=== PATIENT | male | born 1950 | race Caucasian/White ===

== ENCOUNTER → 2020-01-15 | Outpatient (CLI) | payer MEDICARE ==
--- NOTE | 2020-01-15 14:21 | US ---
EXAMINATION TYPE: US kidneys/renal and bladder DATE OF EXAM: 01/15/2020 COMPARISON: NONE CLINICAL HISTORY: N18.3 CKD Stage 3. CKD stage II EXAM MEASUREMENTS: Right Kidney: 9.4 x 4.0 x 4.2 cm Left Kidney: 11.1 x 5.6 x 4.6 cm Technical limitations due to overlying bowel content Right Kidney: thin renal cortex Left Kidney: thin renal cortex Bladder: not fully distended Bilateral Jets seen: no No hydronephrosis or nephrolithiasis. IMPRESSION: Cortical thinning correlate for chronic medical renal disease.
== END | disposition home or self-care (01) ==
LOC: RADUSWWP 13:39
PROVIDERS: ATTEND Internal Medicine Nephrology
DX: N18.3 Chronic kidney disease, stage 3 (moderate) (principal); N28.89 Other specified disorders of kidney and ureter
CPT/HCPCS: 76770

== ENCOUNTER → 2020-09-10 | Outpatient (CLI) | payer MEDICARE ==
--- NOTE | 2020-09-10 14:26 | XR ---
EXAMINATION TYPE: XR chest special 4+ views DATE OF EXAM: 09/10/2020 COMPARISON: 08/05/2017 INDICATION: Pleural effusions TECHNIQUE: Single frontal view of the chest is obtained. FINDINGS: The heart size is normal. The pulmonary vasculature is normal. There is a moderate free flowing right pleural effusion. Smaller free flowing left pleural effusion i s present. There is some flattening the diaphragms the lateral projection which can be associated wit h COPD. IMPRESSION: 1. Free flowing bilateral pleural effusions larger on the right.
== END | disposition home or self-care (01) ==
LOC: RADXRMAIN 13:49
PROVIDERS: ATTEND Internal Medicine Hematology & Oncology
DX: J90 Pleural effusion, not elsewhere classified (principal); C92.10 Chronic myeloid leukemia, BCR/ABL-positive, not having achieved remission; M10.9 Gout, unspecified; N18.9 Chronic kidney disease, unspecified
CPT/HCPCS: 71048

== ENCOUNTER → 2020-10-05 | Outpatient (CLI) | payer MEDICARE ==
--- NOTE | 2020-10-05 08:53 | CT ---
EXAMINATION TYPE: CT chest wo con DATE OF EXAM: 10/05/2020 COMPARISON: Chest CT August 01, 2017 HISTORY: Pulmonary Fibrosis CT DLP: 366.3 mGycm. Automated Exposure Control for Dose Reduction was Utilized. TECHNIQUE: CT scan of the thorax is performed without IV contrast. FINDINGS: LUNGS: There is new small right pleural effusion and tiny left pleural effusion. There is background mild to moderate underlying emphysematous changes greatest in the upper lungs. There is peripheral re ticulation and fibrosis bilaterally with interval progression from 2017 study. Interval resolution of the bilateral predominantly lower lungs interlobular septal thickening and groundglass opacities fro m 2017 study. No suspicious nodules or masses. No pneumothorax seen. Tracheobronchial tree is patent. MEDIASTINUM: Lack of IV contrast is noted to limit evaluation for mediastinal and especially hilar ad enopathy. There are no definitive greater than 1 cm hilar or mediastinal lymph nodes. No cardiomega ly or pericardial effusion is seen. Post CABG changes with mediastinal clips and sternal wires. Moder ate calcified plaque in the thoracic aorta. OTHER: Marked interval progression of bilateral flank shaped subareolar gynecomastia and 2017. Mild-t o-moderate generalized fat replaced atrophy of the pancreas redemonstrated. Some cortical thinning sangeetha th kidneys redemonstrated. IMPRESSION: Mild to moderate emphysematous change redemonstrated. Mild to moderate peripheral pulmona ry fibrotic changes on current study are new from the 2017 study. Small right and tiny left pleural e ffusions new from prior. No suspicious acute infiltrate currently. Marked progression of bilateral gy necomastia incidentally noted.
== END ==
LOC: RADCTMAIN 06:55
PROVIDERS: ATTEND Internal Medicine Sleep Medicine
DX: J84.10 Pulmonary fibrosis, unspecified (principal); J90 Pleural effusion, not elsewhere classified; J43.9 Emphysema, unspecified
CPT/HCPCS: 71250

== ENCOUNTER → 2020-11-10 | Outpatient (CLI) | payer MEDICARE | LOC: CPPFTMAIN 10:12 | PROVIDERS: ATTEND Internal Medicine Sleep Medicine | DX: J84.10 Pulmonary fibrosis, unspecified (principal) | CPT/HCPCS: 94060; 94726; 94729 ==

== ENCOUNTER → 2020-12-10 | Outpatient (CLI) | payer MEDICARE ==
--- NOTE | 2020-12-11 05:33 | US ---
EXAMINATION TYPE: US kidneys/renal and bladder DATE OF EXAM: 12/10/2020 COMPARISON: 01/15/2020 CLINICAL HISTORY: N18.3 stage 3 chronic kidney disease. EXAM MEASUREMENTS: Right Kidney: 9.7 x 5.3 x 4.9 cm Left Kidney: 10.2 x 4.8 x 4.8 cm Difficult and limited study due to overlying bowel gas Right Kidney: No hydronephrosis or masses seen Left Kidney: No hydronephrosis or masses seen Bladder: appears wnl Bilateral Jets seen: right jet seen, left jet not seen IMPRESSION: No evidence of a renal mass. No hydronephrosis seen. Mild renal atrophy unchanged.
== END | disposition home or self-care (01) ==
LOC: RADUSWWP 15:38
PROVIDERS: ATTEND Internal Medicine Nephrology
DX: N18.30 Chronic kidney disease, stage 3 unspecified (principal); N26.1 Atrophy of kidney (terminal)
CPT/HCPCS: 76770

== ENCOUNTER → 2021-03-18 | Outpatient (CLI) | payer MEDICARE ==
--- NOTE | 2021-03-18 16:53 | XR ---
EXAMINATION TYPE: XR chest 2V DATE OF EXAM: 03/18/2021 COMPARISON: 08/06/2017 HISTORY: 70-year-old male pleural effusion, J9 0. TECHNIQUE: Frontal and lateral views FINDINGS: Heart normal size. Median sternotomy wires with postoperative clips in the mediastinum. Mild patchy d ensity in the periphery of the right midlung. There is a trace right effusion. Otherwise, no consolid ation seen. Mild hyperinflation. IMPRESSION: 1. There may be underlying COPD. 2. Very subtle patchy density periphery of the right mid lung could represent atelectasis or an early infiltrate. 3. Trace right pleural effusion.
== END | disposition home or self-care (01) ==
LOC: RADXRMAIN 13:40
PROVIDERS: ATTEND Internal Medicine Sleep Medicine
DX: J90 Pleural effusion, not elsewhere classified (principal); J98.4 Other disorders of lung
CPT/HCPCS: 71046

== ENCOUNTER 2021-03-28 14:06 | Inpatient (IN) | payer MEDICARE ==
--- NOTE | 2021-03-28 14:58 | ED ---
Chest Pain HPI - General Chief Complaint: Chest Pain Stated Complaint: CHEST PAIN Source: patient Mode of arrival: ambulatory Limitations: no limitations - History of Present Illness Initial Comments: Patient is a 70-year-old male past history of coronary artery disease status post bypass, diabetes who presents to the emergency department with reported elevated heart rate. The patient states that this is the second time that this has happened to him. He was recently prescribed DuoNeb by Dr. Briones on Monday as he has possible pneumonia. He states that he used one treatment on Monday and had an elevation in his heart rate shortly after. He has associated shortness of breath and chest discomfort. He states he waited for approximately 6 hours and the symptoms resolved on their own. He did not use any breathing treatments yesterday. He once again took a breathing treatment earlier this morning and had sudden onset of heart racing and chest pain. He denies any associated nausea or vomiting. He sees Dr. Manning in office. States he had a cardiac catheterization several years ago and was found that some of his bypass grafts are occluded. He states that they were medically managing him. Recently has been seeing Dr. Briones for some shortness of breath and was diagnosed with pneumonia. He has been on the antibiotics, breathing treatments since Monday. He denies any fevers or chills. No cough. Patient is not on any blood thinners. He does take Toprol 50 mg once daily. He does not take this medication if his blood pressures less than 110 systolic. No other alleviating, precipitating or modifying factors - Related Data Home Medications Medication Instructions Recorded Confirmed Glimepiride [Amaryl] 1 mg PO BID@0800,0 08/01/17 03/28/21 Metoprolol Tartrate [Lopressor] 50 mg PO DAILY@0808/01/17 03/28/21 Pioglitazone [Actos] 15 mg PO DAILY@0808/01/17 03/28/21 cilostazoL [Pletal] 100 mg PO BID@0800,169908/01/17 03/28/21 lisinopriL [Zestril] 2.5 mg PO DAILY@0808/01/17 03/28/21 Aspirin EC [Ecotrin] 325 mg PO DAILY@0803/28/21 03/28/21 Atorvastatin Calcium [Lipitor] 80 mg PO DAILY@169903/28/2103/28/21 Doxycycline Monohydrate 100 mg PO BID 03/28/21 03/28/21 Ferrous Sulfate [Feosol] 325 mg PO DAILY@79903/28/21 03/28/21 Ipratropium-Albuterol Nebulize 3 ml INHALATION RT-QID PRN 03/28/21 03/28/21 [Duoneb 0.5 mg-3 mg/3 ml Soln] Niacin [Niacin ER] 500 mg PO DAILY@79903/28/21 03/28/21 Spironolactone [Aldactone] 12.5 mg PO DAILY@169903/28/21 03/28/21 allopurinoL [Zyloprim] 300 mg PO DAILY@169903/28/21 03/28/21 calcitrioL [Calcitriol] 0.25 mcg PO SUWE@169903/28/21 03/28/21 predniSONE [Deltasone] See Taper PO DIRECTED 03/28/21 03/28/21 Allergies Allergy/AdvReac Type Severity Reaction Status Date / Time No Known Allergies Allergy Verified 03/28/21 16:38 Review of Systems ROS Statement: Those systems with pertinent positive or pertinent negative responses have been documented in the HPI. ROS Other: All systems not noted in ROS Statement are negative. EKG Findings - EKG Comments: EKG Findings:: EKG demonstrates sinus tachycardia with a ventricular rate of 126. MA interval 152. QRS 134. QTC of 480. Right bundle-branch block. No acute ST segment elevations. Repeat EKG at 1647 demonstrates a sinus tachycardia with a ventricular rate of 124. MA interval 136. QRS 136. QTC of 525. Right bundle branch block. ST depression in V1 through V6. No acute ST segment elevations Past Medical History Past Medical History: Coronary Artery Disease (CAD), Diabetes Mellitus, Hyperlipidemia, Hypertension Additional Past Medical History / Comment(s): PVD carotid stenosis. The patient does have a 40 year pack per day smoking history but has not had any pulmonary symptoms. No inhalers, no oxygen at home. History of Any Multi-Drug Resistant Organisms: None Reported Past Surgical History: Coronary Bypass/CABG, Orthopedic Surgery Past Psychological History: No Psychological Hx Reported Smoking Status: Former smoker Past Alcohol Use History: None Reported Past Drug Use History: None Reported - Past Family History Father Additional Family Medical History / Comment(s): of throat cancer Mother Additional Family Medical History / Comment(s): fell and broke hip then General Exam Limitations: no limitations Course Vital Signs 03/28/21 03/28/21 14:09 14:32 Temperature 97.7 F Pulse Rate 127 H Pulse Rate [ 128 H Bilateral Radial] Respiratory 20 20 Rate Blood Pressure 115/67 O2 Sat by Pulse 94 L Oximetry - Reevaluation(s) Reevaluation #1: spoke with Dr. Greene who recommended lopressor 25 mg TID, heparin 03/28/21 17:06 Chest Pain MDM - MDM Upon arrival patient was placed into room 21. A thorough history and physical exam is performed. Laboratory studies are conducted. Twelve-lead EKG was performed. Laboratory studies do reveal a hemoglobin of 9.8. D-dimer 6.09. Potassium 3.3. Creatinine 1.4. Troponin is 3.1. BNP 20,900. Chest x-ray does demonstrate progressive prominence of the lung interstitium and small bilateral pleural effusions consistent with fluid overload. The patient was given a dose of Lasix 60 mg and started on 40 mg twice daily. He is also given an aspirin and started on a heparin drip. I spoke with Dr. Steve in regards to the patient's symptoms. He has recommend that the patient be given 25 mg 3 times daily for his elevated heart rate, hold off on DuoNeb treatments. Heparinize the patient. VQ scan is ordered. Patient will be admitted to the hospital with cardiology to consult. Spoke with Dr. Mcdaniels who agreed to admit the patient. He is remaining in stable condition with guarded prognosis awaiting a bed on the floor Disposition Clinical Impression: Chest pain, CHF (congestive heart failure), Tachycardia, Medication side effect, NSTEMI (non-ST elevated myocardial infarction), Elevated d-dimer Disposition: ADMITTED IP TO THIS HOSP Condition: Serious Is patient prescribed a controlled substance at d/c from ED?: No Decision to Admit Reason: Admit from EC Decision Date: 03/28/21 Decision Time: 18:13
[2021-03-28 15:44] LABS: Albumin 3.9 g/dL (3.5-5.0); Calcium 9.6 mg/dL (8.4-10.2); Magnesium 1.5 mg/dL (1.6-2.3); Potassium 3.3 mmol/L (3.5-5.1); Total Bilirubin 0.3 mg/dL (0.2-1.3); Total Protein 6.2 g/dL (6.3-8.2)
[2021-03-28 15:45] LABS: Basophils % (A) 0 %; Eosinophils % (A) 0 %; HCT 30.5 % (39.0-53.0); HGB 9.8 gm/dL (13.0-17.5); Lymphocytes # (A) 0.4 k/uL (1.0-4.8); Lymphocytes % (A) 4 %; MCH 37.4 pg (25.0-35.0); MCHC 32.1 g/dL (31.0-37.0); MCV 116.4 fL (80.0-100.0); Macrocytosis Marked; Mean Platelet Volume 8.7; Monocytes # (A) 0.3 k/uL (0-1.0); Monocytes % (A) 3 %; Neutrophils # (A) 8.5 k/uL (1.3-7.7); Neutrophils % (A) 91 %; Platelet Count 223 k/uL (150-450); RBC 2.62 m/uL (4.30-5.90); RDW 15.9 % (11.5-15.5); WBC 9.3 k/uL (3.8-10.6)
--- NOTE | 2021-03-28 15:52 | XR ---
EXAMINATION TYPE: XR chest 2V DATE OF EXAM: 03/28/2021 COMPARISON: Chest radiograph 03/18/2021 HISTORY: Pleural effusion TECHNIQUE: Frontal and lateral views of the chest are obtained. FINDINGS: Cardiomediastinal silhouette appears unchanged. Mildly progressed prominence of the lung i nterstitium. Similar appearing small patchy airspace opacities in the right mid and lower lungs. Slig htly progressed small bilateral pleural effusions. No pneumothorax. Intact sternotomy wires are again seen. Osseous structures otherwise appear intact. Limited views of the upper abdomen appear unremark able. IMPRESSION: 1. Progressed prominence of the lung interstitium and small bilateral pleural effusions consistent wi th fluid overload. 2. Unchanged small patchy right mid and lower lung airspace opacities.
[2021-03-28 16:04] LABS: INR 1.2 (<1.2); Partial Thromboplastin Time 22.6 sec (22.0-30.0); Prothrombin Time 12.2 sec (9.0-12.0)
[2021-03-28] MEDS ORDERED: FUROSEMIDE 10 MG/ML 10 ML VIAL IV STA (16:48)
[2021-03-28] MEDS ORDERED: HEPARIN SODIUM 1,000 UN/ML (10ML VL) IV ONE (17:00)
[2021-03-28] MEDS ORDERED: HEPARIN SODIUM 1,000 UN/ML (10ML VL) IV PRN (17:00)
[2021-03-28 17:44] LABS: Poikilocytosis (M) Present
[2021-03-28 17:45] LABS: RBC Fragments Present
[2021-03-28] MEDS: METOPROLOL TARTRATE 25 MG TAB PO SCH ×2 (17:58→21:49)
[2021-03-28] MEDS: HEPARIN SOD,PORK IN 0.45% NACL 25,000 UNIT in 0.45% NACL 1 250ML.BAG IV SCH (17:59)
[2021-03-28] MEDS ORDERED: NALOXONE 0.4 MG/ML 1 ML VIAL IV PRN (18:13)
[2021-03-28] MEDS ORDERED: ASPIRIN 81 MG PO STA (18:15)
[2021-03-28] MEDS ORDERED: POTASSIUM CHLORIDE ER 20 MEQ TAB.ER PO STA (20:36)
[2021-03-28 21:02] LABS: Glucose,Whole Blood 271 mg/dL (75-99)
[2021-03-28] MEDS: FUROSEMIDE 10 MG/ML 4 ML VIAL IV SCH (21:49)
[2021-03-28] MEDS: DOXYCYCLINE 100 MG CAP PO SCH (22:37)
[2021-03-29 06:06] LABS: Glucose,Whole Blood 210 mg/dL (75-99)
[2021-03-29 07:24] LABS: Anisocytosis Slight; Basophils % (A) 0 %; Eosinophils % (A) 0 %; HCT 28.8 % (39.0-53.0); HGB 9.4 gm/dL (13.0-17.5); Hypochromasia Slight; Lymphocytes # (A) 0.6 k/uL (1.0-4.8); Lymphocytes % (A) 10 %; MCH 37.6 pg (25.0-35.0); MCHC 32.6 g/dL (31.0-37.0); MCV 115.4 fL (80.0-100.0); Macrocytosis Marked; Mean Platelet Volume 8.8; Monocytes # (A) 0.5 k/uL (0-1.0); Monocytes % (A) 7 %; Neutrophils # (A) 5.4 k/uL (1.3-7.7); Neutrophils % (A) 82 %; Platelet Count 183 k/uL (150-450); RBC 2.49 m/uL (4.30-5.90); WBC 6.6 k/uL (3.8-10.6)
[2021-03-29 07:41] LABS: Calcium 9.3 mg/dL (8.4-10.2); Potassium 4.3 mmol/L (3.5-5.1)
[2021-03-29 07:47] LABS: INR 1.3 (<1.2); Partial Thromboplastin Time 67.1 sec (22.0-30.0); Prothrombin Time 13.6 sec (9.0-12.0)
[2021-03-29] MEDS ORDERED: ASPIRIN 325 MG TAB PO SCH (08:00)
--- NOTE | 2021-03-29 08:36 | NM ---
EXAMINATION TYPE: NM pul vent and perfuse DATE OF EXAM: 03/29/2021 COMPARISON: NONE HISTORY: elevated d-dimer, ckd TECHNIQUE: Utilizing inhalation of 70.8 mCi Tc 99m DTPA aerosol and intravenous injection of 5.1 mCi of Tc 99m MAA, ventilation and perfusion images are acquired post injection in multiple projections. FINDINGS: Multiple matched defects are seen within the mid and upper lungs zones. No perfusion mismatch identif ied with certainty. IMPRESSION: Intermediate probability for pulmonary embolism.
--- NOTE | 2021-03-29 10:39 | P.NPCON ---
History of Present Illness - Reason for Consult chronic renal failure - History of Present Illness Reason for consultation: Chronic kidney disease History of present illness: Patient is a 70-year-old male seen in consultation for chronic kidney disease. Patient has chronic kidney disease stage IIIB with baseline creatinine in the range of 1.5-1.9 secondary to diabetic kidney disease. GFR is currently at baseline. Patient presented to the hospital with elevated heart rate. He does complain of shortness of breath with exertion as well as chest discomfort. He is noted to have significantly elevated troponin levels and is being followed by cardiology. He underwent a VQ scan which revealed intermediate probability of PE and just completed a CTA. He has been receiving IV Lasix 40 mg twice daily. He was also started on IV fluids with normal saline at 50 mL an hour this morning. Blood pressure was as low as 88/53 this admission and was 121/64 this morning. No fever or chills. Good urine output. No hematuria or dysuria. No vomiting or diarrhea. He does have long-standing history of diabetes mellitus. Vital signs are stable. General: The patient appeared well nourished and normally developed. HEENT: Head exam is unremarkable. Neck is without jugular venous distension. LUNGS: Breath sounds decreased. HEART: Rate and Rhythm are regular. ABDOMEN: Soft, no distention. EXTREMITITES: No edema. Past Medical History Past Medical History: Coronary Artery Disease (CAD), Diabetes Mellitus, Hyperlipidemia, Hypertension Additional Past Medical History / Comment(s): PVD carotid stenosis. The patient does have a 40 year pack per day smoking history but has not had any pulmonary symptoms. No inhalers, no oxygen at home. Chronic Myloid leukemia History of Any Multi-Drug Resistant Organisms: None Reported Past Surgical History: Coronary Bypass/CABG, Orthopedic Surgery Additional Past Surgical History / Comment(s): screws in right knee Past Anesthesia/Blood Transfusion Reactions: No Reported Reaction Past Psychological History: No Psychological Hx Reported Smoking Status: Former smoker Past Alcohol Use History: None Reported Past Drug Use History: None Reported - Past Family History Father Additional Family Medical History / Comment(s): of throat cancer Mother Additional Family Medical History / Comment(s): fell and broke hip then Medications and Allergies Home Medications Medication Instructions Recorded Confirmed Type Glimepiride [Amaryl] 1 mg PO BID@0800,1700 08/01/17 03/28/21 History Metoprolol Tartrate [Lopressor] 50 mg PO DAILY@0800 08/01/17 03/28/21 History Pioglitazone [Actos] 15 mg PO DAILY@0808/01/17 03/28/21 History cilostazoL [Pletal] 100 mg PO BID@0800,1700 08/01/17 03/28/21 History lisinopriL [Zestril] 2.5 mg PO DAILY@0800 08/01/17 03/28/21 History Aspirin EC [Ecotrin] 325 mg PO DAILY@0803/28/21 03/28/21 History Atorvastatin Calcium [Lipitor] 80 mg PO DAILY@17003/28/21 03/28/21 History Doxycycline Monohydrate 100 mg PO BID 03/28/21 03/28/21 History Ferrous Sulfate [Feosol] 325 mg PO DAILY@0800 03/28/21 03/28/21 History Ipratropium-Albuterol Nebulize 3 ml INHALATION RT-QID PRN 03/28/21 03/28/21 His tory [Duoneb 0.5 mg-3 mg/3 ml Soln] Niacin [Niacin ER] 500 mg PO DAILY@0800 03/28/21 03/28/21 History Spironolactone [Aldactone] 12.5 mg PO DAILY@17003/28/21 03/28/21 History allopurinoL [Zyloprim] 300 mg PO DAILY@1700 03/28/21 03/28/21 History calcitrioL [Calcitriol] 0.25 mcg PO SUWE@169903/28/21 03/28/21 History predniSONE [Deltasone] See Taper PO DIRECTED 03/28/21 03/28/21 History Allergies Allergy/AdvReac Type Severity Reaction Status Date / Time No Known Allergies Allergy Verified 03/28/21 16:38 Physical Exam Vitals: Vital Signs Temp Pulse Pulse Pulse Resp BP BP 03/29/21 08:00 97.6 F 94 19 121/64 03/29/21 04:00 88 16 88/53 03/29/21 02:00 18 03/29/21 00:01 18 03/29/21 00:00 18 109/64 03/28/21 21:24 98.1 F 107 H 18 107/64 03/28/21 14:32 128 H 20 03/28/21 14:09 97.7 F 127 H 20 115/67 Pulse Ox 03/29/21 08:00 95 03/29/21 04:00 96 03/29/21 02:00 03/29/21 00:01 03/29/21 00:00 94 L 03/28/21 21:24 94 L 03/28/21 14:32 03/28/21 14:09 94 L Intake and Output 03/28/21 03/29/21 03/29/21 22:59 06:59 14:59 Intake Total 57.333 Output Total 250 Balance -192.667 Intake: Intake, IV Titration 57.333 Amount Heparin Sod,Pork in 0.45% 57.333 NaCl 25,000 unit In 0.45 % NaCl 1 250ml.bag @ 11. 603 UNITS/KG/HR 10 mls/hr IV .Q24H [facility] Rx#: [id number] Output: Urine 250 Other: Voiding Method Urinal # Voids 1 Weight 86.183 kg 82 kg Results - Lab Results Most recent lab results Calcium 9.3 mg/dL (8.4-10.2) 03/29/21 06:49 Magnesium 1.5 mg/dL (1.6-2.3) L 03/28/21 15:10 03/29/21 06:49 03/29/21 06:49 Assessment and Plan Plan: Assessment: 1. Chronic kidney disease stage IIIB with baseline creatinine in the range of 1.5-1.9 secondary to diabetic kidney disease. GFR at baseline currently. Recent ultrasound revealed no evidence of hydronephrosis. 2. Chest pain or shortness of breath. Concern for PE as well as acute coronary syndrome. On IV heparin. 3. Chronic systolic CHF with ejection fraction of less than 20% noted on echocardiogram done in July 2017. 4. History of coronary artery disease. 5. Anemia of chronic kidney disease. Rule out iron deficiency. 5. Metabolic acidosis secondary to chronic kidney disease. Plan: Hold Lasix. Maintain normal saline at 50 mL an hour for the next 24 hours. Follow-up CTA and ECHO results. Possible cardiac catheterization tomorrow. Avoid nephrotoxins. Discussed with the patient the risk of worsening renal failure potentially requiring renal replacement therapy post IV contrast exposure. He understands. Case discussed with cardiology. Add oral bicarbonate. Check iron studies. Thank you for the consultation. I will continue to follow the patient with you during his hospital stay.
--- NOTE | 2021-03-29 10:39 | CONS ---
CONSULTATION CHIEF COMPLAINT: Chest pain. Pk is a 70-year-old gentleman with history of coronary artery disease, status post CABG, chronic renal insufficiency, lya-eenmero-hrtljfkln diabetes, severe COPD and dyslipidemia and hypertension and history of chronic myeloid leukemia who presented to hospital following an episode of chest pain. The patient states that he was initially evaluated by his oncologist who, following a chest x-ray, found pleural effusion, and he had thoracentesis [facility] on the right side. Subsequently he was seen by his highway safety engineer, who did do a walking test in his office. He could only walk for 3 minutes and became hypoxic and dropped his oxygen saturations. He was started on nebulizers. After receiving albuterol he started having chest pain, due to which he came to hospital and got admitted. EKG shows sinus tachycardia with right bundle branch block and extensive ST-T wave changes. On admission his troponin was elevated at 3.1 and subsequently went up to 7.9 and 14.6. He also had a D-dimer that was elevated at 6. He went on to have a V/Q scan because of elevated creatinine that came back as intermediate probability. The patient had an elevated D-dimer in the past, also. His clinical presentation is actually more consistent with acute coronary syndrome than pulmonary embolism. Given the significantly elevated D-dimer and intermediate probability V/Q scan, we are obligated to perform a CT scan of the chest to rule out or rule in pulmonary embolism so that we can decide on whether to perform invasive angiography and catheter-based revascularization or not. The patient has elevated creatinine at 1.4 and has had chronic renal insufficiency, and in the past his creatinine went up all the way to 2.1. He is at risk for contrast-induced nephropathy. He understands this but wishes to proceed with a CT scan for a definitive diagnosis. I will consult Nephrology, and once we have an answer regarding his pulmonary embolism, we will decide on cardiac catheterization. At the moment the patient is chest-pain- free, hemodynamically stable. He is not in overt heart failure and does not need immediate cardiac catheterization. The patient will continue the IV heparin, aspirin, treat him with beta blockers and nitrates. PAST MEDICAL HISTORY: Past medical history is significant for coronary artery disease, status post CABG, chronic renal insufficiency, hypertension, diabetes, dyslipidemia. MEDICATIONS: Medications at home included Zyloprim, aspirin, Amaryl, Pletal, Lipitor, Lopressor, Actos, iron, nebulizer, Aldactone and prednisone. ALLERGIES: There are NO KNOWN DRUG ALLERGIES. FAMILY HISTORY: Negative for premature coronary artery disease. SOCIAL HISTORY: Negative for smoking, EtOH abuse or drug abuse. REVIEW OF SYSTEMS: HEENT is unremarkable. CARDIAC: As described above. RESPIRATORY: As described above. GI: Negative. GENITOURINARY: Significant for renal insufficiency. PSYCHOSOCIAL: Negative. ENDOCRINE: Negative. DERMATOLOGY: Negative. CONSTITUTIONAL: Negative. ONCOLOGICAL: Negative. PHLEBOTOMY SPECIALIST: Negative. Rest of the system review is not relevant. PHYSICAL EXAMINATION: Patient is afebrile. Heart rate is 90 beats per minute. Blood pressure is 120/64, respiratory rate is 18. Oxygen saturation is 95% on room air. There is no jugular venous distention. Carotid upstroke is diminished. There is no bruit. Chest exam reveals diminished air entry at the bases. I do not hear any crackles or rhonchi. Heart exam reveals first and second heart sounds and a short systolic murmur at the left lower sternal border. Abdomen is soft. Examination of extremities did not reveal any edema. Peripheral pulses are diminished. LABS: Labs show a hemoglobin of 9.8. Platelet count is 223. Potassium is 3.3. BUN is 16, creatinine 1.4. Troponins are elevated as described above. BNP is elevated at 20,900. D-dimer is elevated as described above. EKG is abnormal as described above. ASSESSMENT AND PLAN: 1. Elevated troponin, probably secondary to acute non ST-segment elevation myocardial infarction. 2. Elevated D-dimer with intermediate probability V/Q scan. Rule out pulmonary embolism. 3. Chronic renal insufficiency. 4. Coronary artery disease, status post coronary artery bypass grafting with occluded venous grafts and patent PARSONS to LAD and a cardiac catheterization in 2017. 5. Chronic myeloid leukemia. PLAN: Will obtain a CT scan of the chest and decide on further course of action based on the CT scan findings. The patient is at high risk for contrast-induced nephropathy. He understands and is in agreement with the plans. I will involve Nephrology. MMODL / IJN: [id number] /
[2021-03-29] MEDS: SODIUM BICARBONATE TAB 650 MG TAB PO SCH ×2 (10:57→20:59)
[2021-03-29] MEDS: METOPROLOL TARTRATE 25 MG TAB PO SCH ×3 (10:57→20:59)
[2021-03-29] MEDS: cilostazoL 100 MG TAB PO SCH ×2 (10:58→17:19)
[2021-03-29] MEDS: DOXYCYCLINE 100 MG CAP PO SCH ×2 (10:58→20:59)
[2021-03-29] MEDS: SODIUM CHLORIDE 0.9% 1,000 ML IV SCH (11:01)
--- NOTE | 2021-03-29 11:06 | CT ---
EXAMINATION TYPE: CT chest angio for PE DATE OF EXAM: 03/29/2021 COMPARISON: 10/05/2020 HISTORY: 70-year-old male shortness of breath, rule out PE TECHNIQUE: Contiguous axial scanning of the chest performed with IV Contrast, patient injected with 8 0 ml mL of Isovue 370. Coronal/sagittal MIP reconstructions performed. CT DLP: 337.2 mGycm Automated exposure control for dose reduction was used. FINDINGS: Heart normal size without pericardial effusion. Median sternotomy wires and post-CABG changes. Mild to moderate atherosclerotic calcifications throughout the thoracic aorta. There is a direct take off of the left vertebral artery directly from the aortic arch. A few scattered prominent mediastinal lymph nodes measuring up to 8 mm precarinal and 7 mm and window are unchanged. Mildly enlarged caliber to the main right and left pulmonary arteries measuring up to 2.6 cm each sug gesting underlying pulmonary arterial hypertension. Satisfactory opacification of the pulmonary arter ial system without evidence for pulmonary embolus. There is a moderate right effusion. Interstitial thickening throughout persists but septal lines have increased. Fluid seen along the right major fissure. 5 mm anterior right midlung nodule and 5 mm peripheral left lower lobe pulmonary nodule, both unchang ed from 10/05/2020. Mild diffuse bronchial wall thickening. Moderate gynecomastia. Generalized anasarca change. Visualized upper abdomen shows perisplenic ascites fluid and is strandy density in the intra-abdomina l fat also compatible with anasarca. Bones: No osseous destructive process. Multiple endplate Schmorl's nodes are noted. IMPRESSION: 1. NO EVIDENCE FOR PULMONARY EMBOLUS. 2. CORRELATE FOR FLUID OVERLOAD STATE/THIRD SPACING GIVEN ANASARCA CHANGE, MODERATE SIZED RIGHT PLEUR AL EFFUSION, AND MILD UPPER ABDOMINAL ASCITES. 3. UNDERLYING PULMONARY ARTERIAL HYPERTENSION AND INCREASING SEPTAL LINES ON A BACKGROUND OF INTERSTI TIAL FIBROSIS. FINDINGS SUGGEST PULMONARY VASCULAR CONGESTION. 4. A COUPLE 5 MM PULMONARY NODULES REMAIN UNCHANGED FAVORING A BENIGN ETIOLOGY.
[2021-03-29] MEDS: FUROSEMIDE 10 MG/ML 4 ML VIAL IV SCH (11:32)
[2021-03-29 11:43] LABS: Glucose,Whole Blood 126 mg/dL (75-99)
--- NOTE | 2021-03-29 12:27 | ECHOF ---
Referral Reason:LV function MEASUREMENTS -------- HEIGHT: 177.8 cm WEIGHT: 81.6 kg BP: 121/64 RVIDd: 4.8 cm (< 3.3) IVSd: 1.3 cm (0.6 - 1.1) LVIDd: 5.1 cm (3.9 - 5.3) LVPWd: 1.6 cm (0.6 - 1.1) IVSs: 1.9 cm LVIDs: 4.1 cm LVPWs: 1.8 cm LAESV Index (A-L): 21.39 ml/m Ao Diam: 3.3 cm (2.0 - 3.7) AV Cusp: 1.1 cm (1.5 - 2.6) LA Diam: 4.1 cm (2.7 - 3.8) MV EXCURSION: 12.685 mm (> 18.000) MV EF SLOPE: 41 mm/s (70 - 150) EPSS: 1.3 cm MV E Tk: 1.17 m/s MV DecT: 184 ms MV A Tk: 1.31 m/s MV E/A Ratio: 0.90 AV maxP.74 mmHg AV meanP.54 mmHg RAP: 5.00 mmHg RVSP: 70.77 mmHg FINDINGS -------- Sinus rhythm. This was a technically difficult study with suboptimal apical views. The left ventricular size is normal. There is mild concentric left ventricular hypertrophy. Overa ll left ventricular systolic function is moderately impaired with, an EF between 35 - 40 %. Mitral Doppler inflow pattern suggests diastolic filling abnormality {E/E'}. Septal wall motion is delayed and consistent with prior cardiac surgery. Mid anterior LV wall motion is hypokinetic. Global h ypokinesis The right ventricle is severely enlarged. Normal LA size by volume 22+/-6 ml/m2. The right atrium is mildly enlarged. 5.0mg of Lumason was utilized for enhancement of images Interatrial and interventricular septum intact. There is moderate aortic valve sclerosis. There is no evidence of aortic regurgitation. There is mild aortic stenosis present. Peak/mean gradient across the Aortic Valve is 16.74mmHg / 9.54mmHg. Mild mitral annular calcification present. Mild mitral regurgitation is present. Moderate to severe tricuspid regurgitation present. There is severe pulmonary hypertension. The r ight ventricular systolic pressure, as measured by Doppler, is 70.77mmHg. There is no pulmonic regurgitation present. The aortic root size is normal. IVC Not well visulized. There is no pericardial effusion. CONCLUSIONS -------- 1. The left ventricular size is normal. 2. There is mild concentric left ventricular hypertrophy. 3. Overall left ventricular systolic function is moderately impaired with, an EF between 35 - 40 %. 4. Mitral Doppler inflow pattern suggest diastolic filling abnormality {E/E'}. 5. Septal wall motion is delayed and consistent with prior cardiac surgery. 6. Global hypokinesis 7. The right ventricle is severely enlarged. 8. The right atrium is mildly enlarged. 9. There is moderate aortic valve sclerosis. 10. There is mild aortic stenosis present. 11. Peak/mean gradient across the Aortic Valve is 16.74mmHg / 9.54mmHg. 12. Mild mitral regurgitation is present. 13. Moderate to severe tricuspid regurgitation present. 14. There is severe pulmonary hypertension. 15. The right ventricular systolic pressure, as measured by Doppler, is 70.77mmHg. SANDING MACHINE OPERATOR: Tennille Tanner RDCS
[2021-03-29 16:05] LABS: % Iron Saturation 34.22 (15.00-50.00)
[2021-03-29 16:14] LABS: Ferritin 223.2 ng/mL (22.0-322.0)
--- NOTE | 2021-03-29 16:41 | P.CNPUL ---
History of Present Illness Consult date: 03/29/21 Reason for consult: dyspnea, cough Chief complaint: Shortness of breath and chest tightness History of present illness: This is a 70-year-old male with prior history of the dyslipidemia hypertension hypertensive cardiovascular disease recently recovering from acute tracheobronchitis with improvement in symptoms Acute onset of chest pain and palpitation came into the hospital workup and evaluation revealed elevated tr oponin patient has been admitted to hospital for further evaluation, pupils and VQ scan is a undetermined at, CT of the chest negative for pulmonary embolism bilateral fluid overload has been noted with moderate site right pleural effusion evidence of pulmonary hyper tension 5 mm nodules noted which are unchanged compared to prior radiographic studies patient is now being considered for cardiac cath angiogram tomorrow currently on IV heparin patient has a chronic kidney disease of BUN/creatinine of 16 and 1.47,, BNP is over 20,000, troponin up from 7.9-14, patient does have a history of coronary artery disease status post CABG however 2 of the graft has been blocked as per patient Review of Systems All systems: negative Past Medical History Past Medical History: Coronary Artery Disease (CAD), Diabetes Mellitus, Hyperlipidemia, Hypertension Additional Past Medical History / Comment(s): PVD carotid stenosis. The patient does have a 40 year pack per day smoking history but has not had any pulmonary symptoms. No inhalers, no oxygen at home. Chronic Myloid leukemia History of Any Multi-Drug Resistant Organisms: None Reported Past Surgical History: Coronary Bypass/CABG, Orthopedic Surgery Additional Past Surgical History / Comment(s): screws in right knee Past Anesthesia/Blood Transfusion Reactions: No Reported Reaction Past Psychological History: No Psychological Hx Reported Smoking Status: Former smoker Past Alcohol Use History: None Reported Past Drug Use History: None Reported - Past Family History Father Additional Family Medical History / Comment(s): of throat cancer Mother Additional Family Medical History / Comment(s): fell and broke hip then Medications and Allergies Home Medications Medication Instructions Recorded Confirmed Type Glimepiride [Amaryl] 1 mg PO BID@0800,1700 08/01/17 03/28/21 History Metoprolol Tartrate [Lopressor] 50 mg PO DAILY@0800 08/01/17 03/28/21 History Pioglitazone [Actos] 15 mg PO DAILY@0800 08/01/17 03/28/21 History cilostazoL [Pletal] 100 mg PO BID@0800,1700 08/01/17 03/28/21 History lisinopriL [Zestril] 2.5 mg PO DAILY@0800 08/01/17 03/28/21 History Aspirin EC [Ecotrin] 325 mg PO DAILY@0800 03/28/21 03/28/21 History Atorvastatin Calcium [Lipitor] 80 mg PO DAILY@1700 03/28/21 03/28/21 History Doxycycline Monohydrate 100 mg PO BID 03/28/21 03/28/21 History Ferrous Sulfate [Feosol] 325 mg PO DAILY@0803/28/21 03/28/21 History Ipratropium-Albuterol Nebulize 3 ml INHALATION RT-QID PRN 03/28/21 03/28/21 History [Duoneb 0.5 mg-3 mg/3 ml Soln] Niacin [Niacin ER] 500 mg PO DAILY@0803/28/21 03/28/21 History Spironolactone [Aldactone] 12.5 mg PO DAILY@169903/28/21 03/28/21 History allopurinoL [Zyloprim] 300 mg PO DAILY@17003/28/21 03/28/21 History calcitrioL [Calcitriol] 0.25 mcg PO SUWE@169903/28/21 03/28/21 History predniSONE [Deltasone] See Taper PO DIRECTED 03/28/21 03/28/21 History Allergies Allergy/AdvReac Type Severity Reaction Status Date / Time No Known Allergies Allergy Verified 03/28/21 16:38 Physical Exam Vitals: Vital Signs Temp Pulse Pulse Resp BP Pulse Ox 03/29/21 13:24 87 19 03/29/21 12:00 97.6 F 87 18 111/56 98 03/29/21 08:00 97.6 F 94 19 121/64 95 03/29/21 04:00 88 16 88/53 96 03/29/21 02:00 18 03/29/21 00:01 18 03/29/21 00:00 18 109/64 94 L 03/28/21 21:24 98.1 F 107 H 18 107/64 94 L Intake and Output 03/29/21 03/29/21 03/29/21 06:59 14:59 22:59 Intake Total 57.333 328.415 Output Total 250 230 Balance -192.667 98.415 Intake: Intake, IV Titration 57.333 92.415 Amount Heparin Sod,Pork in 0.45% 57.333 92.415 NaCl 25,000 unit In 0.45 % NaCl 1 250ml.bag @ 11. 603 UNITS/KG/HR 10 mls/hr IV .Q24H [facility] Rx#: [id number] Oral 236 Output: Urine 250 230 Other: Voiding Method Urinal Urinal # Voids 1 Weight 82 kg - Constitutional General appearance: average body habitus, cooperative, disheveled - EENT Eyes: EOMI, PERRLA ENT: normal oropharynx Ears: bilateral: normal - Neck Neck: normal ROM Carotids: bilateral: upstroke normal Thyroid: bilateral: normal size - Respiratory Respiratory: bilateral: diminished - Cardiovascular Rhythm: regular Heart sounds: normal: S1, S2 - Gastrointestinal General gastrointestinal: normal bowel sounds, soft - Integumentary Integumentary: normal turgor - Neurologic Neurologic: CNII-XII intact - Musculoskeletal Musculoskeletal: gait normal, generalized weakness, strength equal bilaterally - Psychiatric Psychiatric: A&O x's 3, appropriate affect, intact judgment & insight Results - Laboratory Findings CBC and BMP: 03/29/21 06:49 03/29/21 06:49 PT/INR, D-dimer PT 13.6 sec (9.0-12.0) H 03/29/21 06:49 INR 1.3 (<1.2) H 03/29/21 06:49 D-Dimer 6.09 mg/L FEU (<0.60) H 03/28/21 15:10 Abnormal lab findings: Abnormal Labs 03/28/21 03/28/21 03/28/21 15:10 15:10 15:10 RBC 2.62 L Hgb 9.8 L Hct 30.5 L MCV 116.4 H MCH 37.4 H RDW 15.9 H Neutrophils # 8.5 H Lymphocytes # 0.4 L Macrocytosis Marked A PT 12.2 H INR 1.2 H APTT D-Dimer 6.09 H Sodium Potassium 3.3 L Chloride 108 H Carbon Dioxide 18 L Creatinine 1.47 H Glucose 207 H POC Glucose (mg/dL) Magnesium 1.5 L TIBC Troponin I Total Protein 6.2 L 03/28/21 03/28/21 03/28/21 15:10 21:00 22:34 RBC Hgb Hct MCV MCH RDW Neutrophils # Lymphocytes # Macrocytosis PT INR APTT 81.8 H D-Dimer Sodium Potassium Chloride Carbon Dioxide Creatinine Glucose POC Glucose (mg/dL) 271 H Magnesium TIBC Troponin I 3.130 H* Total Protein 03/28/21 03/29/21 03/29/21 22:34 02:33 06:04 RBC Hgb Hct MCV MCH RDW Neutrophils # Lymphocytes # Macrocytosis PT INR APTT D-Dimer Sodium Potassium Chloride Carbon Dioxide Creatinine Glucose POC Glucose (mg/dL) 210 H Magnesium TIBC Troponin I 7.910 H* 14.600 H* Total Protein 03/29/21 03/29/21 03/29/21 06:49 06:49 06:49 RBC 2.49 L Hgb 9.4 L Hct 28.8 L MCV 115.4 H MCH 37.6 H RDW 16.0 H Neutrophils # Lymphocytes # 0.6 L Macrocytosis Marked A PT 13.6 H INR 1.3 H APTT 67.1 H D-Dimer Sodium 136 L Potassium Chloride 109 H Carbon Dioxide 20 L Creatinine 1.47 H Glucose 163 H POC Glucose (mg/dL) Magnesium TIBC Troponin I Total Protein 03/29/21 03/29/21 06:49 11:42 RBC Hgb Hct MCV MCH RDW Neutrophils # Lymphocytes # Macrocytosis PT INR APTT D-Dimer Sodium Potassium Chloride Carbon Dioxide Creatinine Glucose POC Glucose (mg/dL) 126 H Magnesium TIBC 225 L Troponin I Total Protein - Diagnostic Findings Chest x-ray: report reviewed, image reviewed CT scan - chest: report reviewed, image reviewed (Finding as noted above) Assessment and Plan Assessment: Acute non-ST segment elevated LA Acute exacerbation of congestive heart failure likely acute on chronic diastolic heart failure Bilateral pleural effusion right more than the left History of smoking and nicotine use and COPD Resolving pneumonia and tracheobronchitis Plan: Continue supportive care and monitor observe pleural effusion no plans for aggressive intervention gentle diuresis to be done however patient is going for cardiac cath angiogram to assess ischemic cardiomyopathy and the status of the graft and [place] vessels O follow closely further recommendations pending Time with Patient: Greater than 30
[2021-03-29 17:01] LABS: Glucose,Whole Blood 112 mg/dL (75-99)
[2021-03-29] MEDS: ATORVASTATIN 80 MG TAB PO SCH (17:19)
[2021-03-29] MEDS: HEPARIN SOD,PORK IN 0.45% NACL 25,000 UNIT in 0.45% NACL 1 250ML.BAG IV SCH (17:21)
[2021-03-29 20:03] LABS: Glucose,Whole Blood 142 mg/dL (75-99)
--- NOTE | 2021-03-29 23:33 | P.HPIM ---
History of Present Illness H&P Date: 03/29/21 Chief Complaint: Heart racing up fast Patient is a 70-year-old male with a known history of hypertension, hyperlipidemia, coronary artery disease history of CABG, chronic kidney disease stage III previous history of smoking, peripheral vascular disease/carotid stenosis presents to ER with complaints of elevated heart rate. Patient states that he was seen by his drupal php developer and was recommended duo nebs due to COPD on last Monday. Patient was also started on antibiotics in the form of doxycycline. After treatment of DuoNeb inhalation patient started having hot breathing or fast. Does have associated shortness of breath and chest discomfort. Symptoms lasted about 6 hours and resolved. He took breathing treatment failure yesterday morning and developed heart racing or fast again along with chest pain. Mainly left retrosternal chest pain. No associated nausea vomiting. No diaphoresis or headache or dizziness or lightheadedness. Patient states that he did have a cardiac catheterization several years ago and medical management was recommended at that time. Denied any complaints of cough or sputum production. No fever no chills. No recent illnesses. Chest x-ray showed progressive prominence of the left interstitium and small bilateral pleural effusions consistent with fluid overload. Unchanged small patchy right mid and lower lung airspace opacities. Pulmonary perfusion imaging showed indeterminate probability for PE. CT angiogram of the chest was done today showed no evidence of pulmonary embolism. Correlate for fluid overload./Third spacing given anasarca change. Moderate surgery right pleural effusion and mild upper abdominal ascites. Underlying pulmonary arterial hypertension and increasing septal lines are 9 background of interstitial fibrosis. Findings suggest pulmonary vascular congestion 5 g pulmonary nodules remains unchanged. Laboratory data showed WBC 9.3 hemoglobin 9.8 and platelets 223 D-dimer 6.09 BUN 16 and creatinine 1.47 on admission Sodium 138 potassium 3.3 bicarb is 18, magnesium 1.5, blood sugar 271 Troponin III 0.130, 7.910, 14.6 proBNP 15323 Review of Systems Constitutional: Patient denies any fever or chills . No generalized weakness or weight loss. Abdomen: Patient denied nausea vomiting and diarrhea and abdominal pain. Cardiovascular: Patient denies any chest pain or short of breath. +palpitations. Respiratory: patient denied any cough or sputum production. + shortness of breath Neurologic: Patient denied any numbness or tingling headache. Musculoskeletal: Patient denies any complaints of joint swelling or deformity. Skin: Negative Psychiatric: Negative Endocrine: No heat or cold intolerance. No recent weight gain. Genitourinary: No dysuria or hematuria. All other 14 point ROS negative except the above Past Medical History Past Medical History: Coronary Artery Disease (CAD), Diabetes Mellitus, Hyperlipidemia, Hypertension Additional Past Medical History / Comment(s): PVD carotid stenosis. The patient does have a 40 year pack per day smoking history but has not had any pulmonary symptoms. No inhalers, no oxygen at home. Chronic Myloid leukemia History of Any Multi-Drug Resistant Organisms: None Reported Past Surgical History: Coronary Bypass/CABG, Orthopedic Surgery Additional Past Surgical History / Comment(s): screws in right knee Past Anesthesia/Blood Transfusion Reactions: No Reported Reaction Past Psychological History: No Psychological Hx Reported Smoking Status: Former smoker Past Alcohol Use History: None Reported Past Drug Use History: None Reported - Past Family History Father Additional Family Medical History / Comment(s): of throat cancer Mother Additional Family Medical History / Comment(s): fell and broke hip then Medications and Allergies Home Medications Medication Instructions Recorded Confirmed Type Glimepiride [Amaryl] 1 mg PO BID@0800,1700 08/01/17 03/28/21 History Metoprolol Tartrate [Lopressor] 50 mg PO DAILY@0800 08/01/17 03/28/21 History Pioglitazone [Actos] 15 mg PO DAILY@0800 08/01/17 03/28/21 History cilostazoL [Pletal] 100 mg PO BID@0800,1700 08/01/17 03/28/21 History lisinopriL [Zestril] 2.5 mg PO DAILY@0800 08/01/17 03/28/21 History Aspirin EC [Ecotrin] 325 mg PO DAILY@0800 03/28/21 03/28/21 History Atorvastatin Calcium [Lipitor] 80 mg PO DAILY@1700 03/28/21 03/28/21 History Doxycycline Monohydrate 100 mg PO BID 03/28/21 03/28/21 History Ferrous Sulfate [Feosol] 325 mg PO DAILY@0800 03/28/21 03/28/21 History Ipratropium-Albuterol Nebulize 3 ml INHALATION RT-QID PRN 03/28/21 03/28/21 History [Duoneb 0.5 mg-3 mg/3 ml Soln] Niacin [Niacin ER] 500 mg PO DAILY@0800 03/28/21 03/28/21 History Spironolactone [Aldactone] 12.5 mg PO DAILY@0 03/28/21 03/28/21 History allopurinoL [Zyloprim] 300 mg PO DAILY@1700 03/28/21 03/28/21 History calcitrioL [Calcitriol] 0.25 mcg PO SUWE@169903/28/21 03/28/21 History predniSONE [Deltasone] See Taper PO DIRECTED 03/28/21 03/28/21 History Allergies Allergy/AdvReac Type Severity Reaction Status Date / Time No Known Allergies Allergy Verified 03/28/21 16:38 Physical Exam Vitals: Vital Signs Temp Pulse Pulse Pulse Resp BP BP 03/29/21 08:00 97.6 F 94 19 121/64 03/29/21 04:00 88 16 88/53 03/29/21 02:00 18 03/29/21 00:01 18 03/29/21 00:00 18 109/64 03/28/21 21:24 98.1 F 107 H 18 107/64 03/28/21 14:32 128 H 20 03/28/21 14:09 97.7 F 127 H 20 115/67 Pulse Ox 03/29/21 08:00 95 03/29/21 04:00 96 03/29/21 02:00 03/29/21 00:01 03/29/21 00:00 94 L 03/28/21 21:24 94 L 03/28/21 14:32 03/28/21 14:09 94 L Intake and Output 03/28/21 03/29/21 03/29/21 22:59 06:59 14:59 Intake Total 57.333 92.415 Output Total 250 Balance -192.667 92.415 Intake: Intake, IV Titration 57.333 92.415 Amount Heparin Sod,Pork in 0.45% 57.333 92.415 NaCl 25,000 unit In 0.45 % NaCl 1 250ml.bag @ 11. 603 UNITS/KG/HR 10 mls/hr IV .Q24H [facility] Rx#: [id number] Output: Urine 250 Other: Voiding Method Urinal Urinal # Voids 1 Weight 86.183 kg 82 kg PHYSICAL EXAMINATION: Patient is lying in the bed comfortably, no acute distress, awake alert and oriented.. HEENT: Normocephalic. Neck is supple. Pupils reactive. Nostrils clear. Oral cavity is moist. Ears reveal no drainage. Neck reveals no JVD, carotid bruits, or thyromegaly. CHEST EXAMINATION: Trachea is central. Symmetrical expansion.Bibasilar diminished sounds. Minimal expiratory wheezing. CARDIAC: Normal S1, S2 with no gallops. No murmurs ABDOMEN: Soft. Bowel sounds normal. No organomegaly. No abdominal bruits. Extremities: trace edema. No clubbing or cyanosis Neurologically awake, alert, oriented x3 with well-coordinated movements. No focal deficits noted Skin: No rash or skin lesions. Psychiatric: Coperative. Nonsuicidal Musculoskeletal: No joint swelling or deformity. Normal range of motion. Results CBC & Chem 7: 03/29/21 06:49 03/29/21 06:49 Labs: Abnormal Lab Results - Last 24 Hours (Table) 03/28/21 03/28/21 03/28/21 Range/Units 15:10 15:10 15:10 RBC 2.62 L (4.30-5.90) m/uL Hgb 9.8 L (13.0-17.5) gm/dL Hct 30.5 L (39.0-53.0) % MCV 116.4 H (80.0-100.0) fL MCH 37.4 H (25.0-35.0) pg RDW 15.9 H (11.5-15.5) % Neutrophils # 8.5 H (1.3-7.7) k/uL Lymphocytes # 0.4 L (1.0-4.8) k/uL Macrocytosis Marked A PT 12.2 H (9.0-12.0) sec INR 1.2 H (<1.2) APTT (22.0-30.0) sec D-Dimer 6.09 H (<0.60) mg/L FEU Sodium (137-145) mmol/L Potassium 3.3 L (3.5-5.1) mmol/L Chloride 108 H (98-107) mmol/L Carbon Dioxide 18 L (22-30) mmol/L Creatinine 1.47 H (0.66-1.25) mg/dL Glucose 207 H (74-99) mg/dL POC Glucose (mg/dL) (75-99) mg/dL Magnesium 1.5 L (1.6-2.3) mg/dL Troponin I (0.000-0.034) ng/mL Total Protein 6.2 L (6.3-8.2) g/dL 03/28/21 03/28/21 03/28/21 Range/Units 15:10 21:00 22:34 RBC (4.30-5.90) m/uL Hgb (13.0-17.5) gm/dL Hct (39.0-53.0) % MCV (80.0-100.0) fL MCH (25.0-35.0) pg RDW (11.5-15.5) % Neutrophils # (1.3-7.7) k/uL Lymphocytes # (1.0-4.8) k/uL Macrocytosis PT (9.0-12.0) sec INR (<1.2) APTT 81.8 H (22.0-30.0) sec D-Dimer (<0.60) mg/L FEU Sodium (137-145) mmol/L Potassium (3.5-5.1) mmol/L Chloride (98-107) mmol/L Carbon Dioxide (22-30) mmol/L Creatinine (0.66-1.25) mg/dL Glucose (74-99) mg/dL POC Glucose (mg/dL) 271 H (75-99) mg/dL Magnesium (1.6-2.3) mg/dL Troponin I 3.130 H* (0.000-0.034) ng/mL Total Protein (6.3-8.2) g/dL 03/28/21 03/29/21 03/29/21 Range/Units 22:34 02:33 06:04 RBC (4.30-5.90) m/uL Hgb (13.0-17.5) gm/dL Hct (39.0-53.0) % MCV (80.0-100.0) fL MCH (25.0-35.0) pg RDW (11.5-15.5) % Neutrophils # (1.3-7.7) k/uL Lymphocytes # (1.0-4.8) k/uL Macrocytosis PT (9.0-12.0) sec INR (<1.2) APTT (22.0-30.0) sec D-Dimer (<0.60) mg/L FEU Sodium (137-145) mmol/L Potassium (3.5-5.1) mmol/L Chloride (98-107) mmol/L Carbon Dioxide (22-30) mmol/L Creatinine (0.66-1.25) mg/dL Glucose (74-99) mg/dL POC Glucose (mg/dL) 210 H (75-99) mg/dL Magnesium (1.6-2.3) mg/dL Troponin I 7.910 H* 14.600 H* (0.000-0.034) ng/mL Total Protein (6.3-8.2) g/dL 03/29/21 03/29/21 03/29/21 Range/Units 06:49 06:49 06:49 RBC 2.49 L (4.30-5.90) m/uL Hgb 9.4 L (13.0-17.5) gm/dL Hct 28.8 L (39.0-53.0) % MCV 115.4 H (80.0-100.0) fL MCH 37.6 H (25.0-35.0) pg RDW 16.0 H (11.5-15.5) % Neutrophils # (1.3-7.7) k/uL Lymphocytes # 0.6 L (1.0-4.8) k/uL Macrocytosis Marked A PT 13.6 H (9.0-12.0) sec INR 1.3 H (<1.2) APTT 67.1 H (22.0-30.0) sec D-Dimer (<0.60) mg/L FEU Sodium 136 L (137-145) mmol/L Potassium (3.5-5.1) mmol/L Chloride 109 H (98-107) mmol/L Carbon Dioxide 20 L (22-30) mmol/L Creatinine 1.47 H (0.66-1.25) mg/dL Glucose 163 H (74-99) mg/dL POC Glucose (mg/dL) (75-99) mg/dL Magnesium (1.6-2.3) mg/dL Troponin I (0.000-0.034) ng/mL Total Protein (6.3-8.2) g/dL 03/29/21 Range/Units 11:42 RBC (4.30-5.90) m/uL Hgb (13.0-17.5) gm/dL Hct (39.0-53.0) % MCV (80.0-100.0) fL MCH (25.0-35.0) pg RDW (11.5-15.5) % Neutrophils # (1.3-7.7) k/uL Lymphocytes # (1.0-4.8) k/uL Macrocytosis PT (9.0-12.0) sec INR (<1.2) APTT (22.0-30.0) sec D-Dimer (<0.60) mg/L FEU Sodium (137-145) mmol/L Potassium (3.5-5.1) mmol/L Chloride (98-107) mmol/L Carbon Dioxide (22-30) mmol/L Creatinine (0.66-1.25) mg/dL Glucose (74-99) mg/dL POC Glucose (mg/dL) 126 H (75-99) mg/dL Magnesium (1.6-2.3) mg/dL Troponin I (0.000-0.034) ng/mL Total Protein (6.3-8.2) g/dL Thrombosis Risk Factor Assmnt - DVT/VTE Prophylaxis DVT/VTE Prophylaxis: Pharmacologic Prophylaxis ordered - Choose All That Apply Any of the Below Risk Factors Present?: Yes Each Factor Represents 1 point: Abnormal pulmonary function (COPD), Acute HI, Heart failure (<1month), Obesity (BMI >25), Serious lung disease incl. pneumonia (< 1month) Other Risk Factors: Yes Each Risk Factor Represents 2 Points: Age 61-74 years Thrombosis Risk Factor Assessment Total Risk Factor Score: 7 Thrombosis Risk Factor Assessment Level: High Risk Assessment and Plan Assessment: Acute non-ST elevated HI with elevated troponin level. Acute on chronic CHF with systolic dysfunction ejection fraction 35 to 40%. Shortness of breath secondary to fluid overload and pulmonary vascular congestion and moderate right pleural effusion. Severe pulmonary hypertension and moderate to severe TR Coronary artery disease history of CABG Elevated D-dimer level. CTA negative for pulmonary embolism. Chronic kidney disease stage III Metabolic acidosis secondary to CKD Hypomagnesemia and hypokalemia Macrocytic anemia and anemia of chronic disease. Rule out iron deficiency. Hypertension Hyperlipidemia Peripheral vascular disease Previous history of smoking COPD Sinus tachycardia likely due to DuoNeb inhalation. DVT prophylaxis. Patient is already on heparin drip . Plan: Patient was given a dose of IV Lasix in the ER. Gentle IV diuresis. Continue with heparin drip and cardiology was consulted. Monitor renal function and continue with metoprolol, aspirin and statins. Nephrology and pulmonary was consulted. Monitor closely. Prognosis guarded at this time. Time with Patient: Greater than 30
[2021-03-30] MEDS: SODIUM CHLORIDE 0.9% 1,000 ML IV SCH (06:03)
[2021-03-30 06:07] LABS: Glucose,Whole Blood 83 mg/dL (75-99)
[2021-03-30 08:53] LABS: Magnesium 1.4 mg/dL (1.6-2.3); Potassium 3.6 mmol/L (3.5-5.1)
[2021-03-30 09:08] LABS: Anisocytosis Slight; Basophils % (A) 0 %; Eosinophils # (A) 0.1 k/uL (0-0.7); Eosinophils % (A) 3 %; HCT 28.2 % (39.0-53.0); HGB 9.1 gm/dL (13.0-17.5); Hypochromasia Slight; Lymphocytes # (A) 0.6 k/uL (1.0-4.8); Lymphocytes % (A) 13 %; MCH 38.3 pg (25.0-35.0); MCHC 32.3 g/dL (31.0-37.0); MCV 118.6 fL (80.0-100.0); Macrocytosis Marked; Mean Platelet Volume 8.7; Monocytes # (A) 0.3 k/uL (0-1.0); Monocytes % (A) 6 %; Neutrophils # (A) 3.4 k/uL (1.3-7.7); Neutrophils % (A) 75 %; Platelet Count 164 k/uL (150-450); RBC 2.38 m/uL (4.30-5.90); RDW 16.3 % (11.5-15.5); WBC 4.5 k/uL (3.8-10.6)
--- NOTE | 2021-03-30 09:22 | P.PN ---
Subjective Patient is seen in follow-up for chronic kidney disease. Renal function is stable. Currently resting in bed. On room air. No chest pain or shortness of breath. Good urine output. Vital signs are stable. General: The patient appeared well nourished and normally developed. HEENT: Head exam is unremarkable. Neck is without jugular venous distension. LUNGS: Breath sounds decreased. HEART: Rate and Rhythm are regular. ABDOMEN: Soft, no distention. EXTREMITITES: No edema. Objective - Vital Signs Vital signs: Vital Signs Temp 97.4 F L 03/30/21 04:00 Pulse 86 03/30/21 04:00 Resp 16 03/30/21 04:00 BP 99/55 03/30/21 04:00 Pulse Ox 94 L 03/30/21 04:00 Intake & Output 03/29/21 03/30/21 03/30/21 18:59 06:59 18:59 Intake Total 612.359 Output Total 230 550 Balance 382.359 -550 Weight 81.3 kg Intake: Intake, IV Titration 140.359 Amount Heparin Sod,Pork in 0.45% 140.359 NaCl 25,000 unit In 0.45 % NaCl 1 250ml.bag @ 11. 603 UNITS/KG/HR 10 mls/hr IV .Q24H [facility] Rx#: [id number] Oral 472 Output: Urine 230 550 Other: Voiding Method Urinal Urinal # Voids 1 - Labs CBC & Chem 7: 03/30/21 08:16 03/30/21 08:16 Labs: Abnormal Lab Results - Last 24 Hours (Table) 03/29/21 03/29/21 03/29/21 Range/Units 06:49 11:42 16:41 RBC (4.30-5.90) m/uL Hgb (13.0-17.5) gm/dL Hct (39.0-53.0) % MCV (80.0-100.0) fL MCH (25.0-35.0) pg RDW (11.5-15.5) % Macrocytosis APTT 47.0 H (22.0-30.0) sec Chloride (98-107) mmol/L Carbon Dioxide (22-30) mmol/L Creatinine (0.66-1.25) mg/dL POC Glucose (mg/dL) 126 H (75-99) mg/dL Magnesium (1.6-2.3) mg/dL TIBC 225 L (228-460) ug/dL 03/29/21 03/29/21 03/30/21 Range/Units 16:55 20:02 08:16 RBC (4.30-5.90) m/uL Hgb (13.0-17.5) gm/dL Hct (39.0-53.0) % MCV (80.0-100.0) fL MCH (25.0-35.0) pg RDW (11.5-15.5) % Macrocytosis APTT (22.0-30.0) sec Chloride 110 H (98-107) mmol/L Carbon Dioxide 21 L (22-30) mmol/L Creatinine 1.39 H (0.66-1.25) mg/dL POC Glucose (mg/dL) 112 H 142 H (75-99) mg/dL Magnesium 1.4 L (1.6-2.3) mg/dL TIBC (228-460) ug/dL 03/30/21 Range/Units 08:16 RBC 2.38 L (4.30-5.90) m/uL Hgb 9.1 L (13.0-17.5) gm/dL Hct 28.2 L (39.0-53.0) % MCV 118.6 H (80.0-100.0) fL MCH 38.3 H (25.0-35.0) pg RDW 16.3 H (11.5-15.5) % Macrocytosis Marked A APTT (22.0-30.0) sec Chloride (98-107) mmol/L Carbon Dioxide (22-30) mmol/L Creatinine (0.66-1.25) mg/dL POC Glucose (mg/dL) (75-99) mg/dL Magnesium (1.6-2.3) mg/dL TIBC (228-460) ug/dL Assessment and Plan Plan: Assessment: 1. Chronic kidney disease stage IIIB with baseline creatinine in the range of 1.5-1.9 secondary to diabetic kidney disease. GFR at baseline currently. Recent ultrasound revealed no evidence of hydronephrosis. 2. Chest pain or shortness of breath. No evidence of PE on CTA done March 29. On IV heparin. 3. Acute on chronic systolic CHF with ejection fraction of 35-40% and moderate to severe tricuspid regurgitation and severe pulmonary hypertension. 4. History of coronary artery disease. 5. Anemia of chronic kidney disease. Iron replete. 6. Metabolic acidosis secondary to chronic kidney disease. Maintained on oral bicarbonate. 7. Hypomagnesemia from diuresis and poor intake. Plan: Maintain normal saline at 50 mL an hour - Hep-Lock 6 hours after cardiac catheterization. Resume Lasix tonight 40 mg IV twice daily tonight. Possible cardiac catheterization today. Avoid nephrotoxins. Discussed with the patient the risk of worsening renal failure potentially requiring renal replacement therapy post IV contrast exposure. He understands. Add Aranesp. Replace magnesium.
[2021-03-30] MEDS ORDERED: DARBEPOETIN ALFA 40 MCG/0.4 ML SYRINGE SQ SCH (10:00)
[2021-03-30] MEDS: DOXYCYCLINE 100 MG CAP PO SCH ×2 (10:51→20:51)
[2021-03-30] MEDS: SODIUM BICARBONATE TAB 650 MG TAB PO SCH ×2 (10:51→20:51)
[2021-03-30] MEDS: MAGNESIUM SULFATE-D5W PMX 1 GM in DEXTROSE/WATER 1 100ML.BAG IVPB SCH ×2 (10:51→15:57)
[2021-03-30] MEDS ORDERED: NITROGLYCERIN SL TABS 0.4 MG TAB SUBLINGUAL PRN (10:58)
[2021-03-30] MEDS ORDERED: SODIUM CHLORIDE 0.9% 1,000 ML in EMPTY BAG 1 BAG IV ONE (10:58)
[2021-03-30] MEDS ORDERED: ALPRAZolam 0.5 MG TAB PO PRN (10:58)
[2021-03-30] MEDS ORDERED: ALPRAZolam 0.25 MG TAB PO PRN (10:58)
[2021-03-30] MEDS ORDERED: ASPIRIN 325 MG TAB PO STA (10:58)
[2021-03-30] MEDS ORDERED: ATORVASTATIN 80 MG TAB PO STA (10:58)
[2021-03-30] MEDS: ASPIRIN 81 MG PO SCH (11:40)
[2021-03-30] MEDS ORDERED: IV FLUID CONTINUATION 1,000 ML IV ONE (11:50)
[2021-03-30] MEDS ORDERED: MIDAZOLAM 2 MG/2 ML VIAL IV ONE (12:11)
[2021-03-30] MEDS ORDERED: LIDOCAINE 1% INJ 10MG/ML (20 ML MDV) SQ ONE ×2 (12:14→12:20)
[2021-03-30] MEDS ORDERED: fentaNYL (PF) 50 MCG/ML 2 ML AMP IV ONE (12:23)
[2021-03-30] MEDS ORDERED: RX INFO: IV CONTRAST WAS GIVEN 1 EACH MISC MISCELLANE PRN (12:38)
[2021-03-30] MEDS ORDERED: SODIUM CHLORIDE 0.9% 1,000 ML IV SCH (12:45)
[2021-03-30] MEDS ORDERED: IOPAMIDOL-370 125ML BTL INJ ONE (12:45)
[2021-03-30 13:19] LABS: Crenated RBC Present; Poikilocytosis (M) Present
[2021-03-30 13:20] LABS: RBC Fragments Present
[2021-03-30] MEDS: ATORVASTATIN 80 MG TAB PO SCH (15:11)
[2021-03-30] MEDS: METOPROLOL TARTRATE 25 MG TAB PO SCH ×3 (15:56→22:03)
[2021-03-30] MEDS: cilostazoL 100 MG TAB PO SCH ×2 (15:56→16:52)
--- NOTE | 2021-03-30 16:29 | P.PN ---
Subjective Progress Note Date: 03/30/21 Principal diagnosis: Acute non-ST segment elevated TN Acute exacerbation of congestive heart failure likely acute on chronic diastolic heart failure Bilateral pleural effusion right more than the left History of smoking and nicotine use and COPD Resolving pneumonia and tracheobronchitis 03/30/2021 Patient is status post cardiac cath and angiogram, no intervention is done decision was done to maximize medical therapy, patient is being planned to start on diuretics for anasarca and pleural effusion This is a 70-year-old male with prior history of the dyslipidemia hypertension hypertensive cardiovascular disease recently recovering from acute tracheobronchitis with improvement in symptoms Acute onset of chest pain and palpitation came into the hospital workup and evaluation revealed elevated troponin patient has been admitted to hospital for further evaluation, pupils and VQ scan is a undetermined at, CT of the chest negative for pulmonary embolism bilateral fluid overload has been noted with moderate site right pleural effusion evidence of pulmonary hyper tension 5 mm nodules noted which are unchanged compared to prior radiographic studies patient is now being considered for cardiac cath angiogram tomorrow currently on IV heparin patient has a chronic kidney disease of BUN/creatinine of 16 and 1.47,, BNP is over 20,000, troponin up from 7.9-14, patient does have a history of coronary artery disease status post CABG however 2 of the graft has been blocked as per patient Objective - Vital Signs Vital signs: Vital Signs Temp 97.9 F 03/30/21 13:24 Pulse 91 03/30/21 10:54 Resp 18 03/30/21 13:24 BP 139/63 03/30/21 13:24 Pulse Ox 100 03/30/21 13:24 Intake & Output 03/29/21 03/30/21 03/30/21 18:59 06:59 18:59 Intake Total 612.359 287 Output Total 230 550 300 Balance 382.359 -550 -13 Weight 81.3 kg Intake: IV 50 Intake, IV Titration 140.359 Amount Heparin Sod,Pork in 0.45% 140.359 NaCl 25,000 unit In 0.45 % NaCl 1 250ml.bag @ 11. 603 UNITS/KG/HR 10 mls/hr IV .Q24H [facility] Rx#: [id number] Oral 472 237 Output: Urine 230 550 300 Other: Voiding Method Urinal Urinal Urinal # Voids 1 1 - Exam - Constitutional General appearance: average body habitus, cooperative, disheveled - EENT Eyes: EOMI, PERRLA ENT: normal oropharynx Ears: bilateral: normal - Neck Neck: normal ROM Carotids: bilateral: upstroke normal Thyroid: bilateral: normal size - Respiratory Respiratory: bilateral: diminished - Cardiovascular Rhythm: regular Heart sounds: normal: S1, S2 - Gastrointestinal General gastrointestinal: normal bowel sounds, soft - Integumentary Integumentary: normal turgor - Neurologic Neurologic: CNII-XII intact - Musculoskeletal Musculoskeletal: gait normal, generalized weakness, strength equal bilaterally - Psychiatric Psychiatric: A&O x's 3, appropriate affect, intact judgment & insight - Labs CBC & Chem 7: 03/30/21 08:16 03/30/21 08:16 Labs: Abnormal Lab Results - Last 24 Hours (Table) 03/29/21 03/29/21 03/29/21 Range/Units 16:41 16:55 20:02 RBC (4.30-5.90) m/uL Hgb (13.0-17.5) gm/dL Hct (39.0-53.0) % MCV (80.0-100.0) fL MCH (25.0-35.0) pg RDW (11.5-15.5) % Lymphocytes # (1.0-4.8) k/uL Macrocytosis APTT 47.0 H (22.0-30.0) sec Chloride (98-107) mmol/L Carbon Dioxide (22-30) mmol/L Creatinine (0.66-1.25) mg/dL POC Glucose (mg/dL) 112 H 142 H (75-99) mg/dL Magnesium (1.6-2.3) mg/dL 03/30/21 03/30/21 Range/Units 08:16 08:16 RBC 2.38 L (4.30-5.90) m/uL Hgb 9.1 L (13.0-17.5) gm/dL Hct 28.2 L (39.0-53.0) % MCV 118.6 H (80.0-100.0) fL MCH 38.3 H (25.0-35.0) pg RDW 16.3 H (11.5-15.5) % Lymphocytes # 0.6 L (1.0-4.8) k/uL Macrocytosis Marked A APTT (22.0-30.0) sec Chloride 110 H (98-107) mmol/L Carbon Dioxide 21 L (22-30) mmol/L Creatinine 1.39 H (0.66-1.25) mg/dL POC Glucose (mg/dL) (75-99) mg/dL Magnesium 1.4 L (1.6-2.3) mg/dL Assessment and Plan Assessment: Acute non-ST segment elevated TN Acute exacerbation of congestive heart failure likely acute on chronic diastolic heart failure Bilateral pleural effusion right more than the left History of smoking and nicotine use and COPD Resolving pneumonia and tracheobronchitis Plan: Continue supportive care and monitor observe pleural effusion no plans for aggressive intervention gentle diuresis to be done patient is status post cardiac cath and angiogram to assess ischemic cardiomyopathy and the status of the graft and [place] vessels O follow closely further recommendations pending Time with Patient: Greater than 30
[2021-03-30 17:07] LABS: Glucose,Whole Blood 168 mg/dL (75-99)
--- NOTE | 2021-03-30 17:27 | CC ---
CARDIAC CATHETERIZATION REPORT DATE OF SERVICE: March 30, 2021. PERFORMING PHYSICIAN: Niranjan Ngo MD. PROCEDURE PERFORMED: 1. Selective right and left coronary angiogram. 2. Selective bilateral common femoral arteries angiogram. INDICATION: Acute [id number] myocardial infarction in this 70-year-old gentleman with known history of coronary artery disease and prior coronary artery bypass grafting with the last heart catheterization was performed in 2017 showing severe triple-vessel with occlusion of all vein grafts and patent grafts and patent PARSONS to LAD. APPROACH: Right and left common femoral artery. COMPLICATION: None. LEVEL OF SEDATION: Moderate with sedation length of 22 minutes. PROCEDURE DESCRIPTION: After obtaining informed consent, the patient was brought to the cardiac slabber. The right common femoral artery was cannulated using micropuncture technique and a micropuncture wire passed easily. Then I placed a micropuncture sheath over the wire. Because I had difficulty advancing the wire, I did selective angiogram via micropuncture sheath and that showed occluded iliac artery and I was in the [place] arteries and because of that, I pulled the sheath out and held pressure for about 5 minutes with good hemostasis. Subsequently, the left common femoral artery was cannulated using micropuncture technique and a micropuncture wire passed easily, then I placed a 6-[place] sheath at the left common femoral artery. Selective left and right coronary angiogram achieved using JL4 and JR4 catheters. After that I did selective left common femoral artery angiogram. The procedure was completed without any complication. SELECTIVE CORONARY ANGIOGRAM: 1. The left main is calcified with mild to moderate disease only. It bifurcates into LCX and LAD. 2. The LCX is a large caliber vessel. It is a nondominant vessel. The LCX is diffusely diseased up to about 70-80 percent in the distal portion where it becomes a small caliber vessel. The LCX gives rise into first and second obtuse marginal branches and they are large caliber vessels with mild to moderate diffuse disease as well. 3. The LAD: The ostial LAD appeared to have a plaque in the range of 50%. The mid LAD appeared to be normal with good competitive flow from the PARSONS. 4. The right coronary artery is a moderate caliber vessel. 5. The LAD is diffusely diseased up to about 100% distally with very poor outflow. CONCLUSION: 1. Extremely calcified right and left coronary system. 2. Occluded all vein grafts which is known from prior heart catheterization and for that reason, SVG angiogram was not performed. 3. Patent PARSONS to LAD with competitive flow in the LAD. 4. Diffuse disease involving the [place] coronary arteries and they are small caliber vessels and amenable for any revascularization at this point. POSTPROCEDURE MANAGEMENT: 1. Given the above anatomy, I would advise maximize medical treatment. 2. Aggressive cholesterol control. 3. Risk factor modifications. 4. Follow up with the patient. MMSILVANO / IJN: [id number] /
[2021-03-30 19:56] LABS: Glucose,Whole Blood 169 mg/dL (75-99)
[2021-03-30] MEDS: FUROSEMIDE 10 MG/ML 4 ML VIAL IV SCH (20:51)
[2021-03-31 06:16] LABS: Glucose,Whole Blood 62 mg/dL (75-99)
[2021-03-31 06:23] LABS: Glucose,Whole Blood 73 mg/dL (75-99)
[2021-03-31] MEDS ORDERED: HEPARIN SODIUM,PORCINE 10,000 UNIT in SODIUM CHLORIDE 0.9% 1,000 ML IRRIGATION PRN (07:00)
[2021-03-31] MEDS ORDERED: HEPARIN SODIUM,PORCINE 2,500 UNIT in SODIUM CHLORIDE 0.9% 250 ML IRRIGATION PRN (07:00)
[2021-03-31 08:31] LABS: Calcium 9.4 mg/dL (8.4-10.2); Magnesium 1.8 mg/dL (1.6-2.3); Potassium 3.6 mmol/L (3.5-5.1)
[2021-03-31] MEDS: ASPIRIN 81 MG PO SCH (08:55)
[2021-03-31] MEDS: METOPROLOL TARTRATE 25 MG TAB PO SCH ×2 (08:55→17:39)
[2021-03-31] MEDS: DOXYCYCLINE 100 MG CAP PO SCH ×2 (08:55→21:42)
[2021-03-31] MEDS: cilostazoL 100 MG TAB PO SCH ×2 (08:55→16:21)
[2021-03-31] MEDS: SODIUM BICARBONATE TAB 650 MG TAB PO SCH ×2 (08:55→21:30)
[2021-03-31] MEDS ORDERED: POTASSIUM CHLORIDE ER 20 MEQ TAB.ER PO STA (09:10)
--- NOTE | 2021-03-31 09:11 | P.PN ---
Subjective Patient is seen in follow-up for chronic kidney disease. Renal function is stable. Currently resting in bed. On 2 L nasal cannula. On IV Lasix. No chest pain or shortness of breath. Good urine output. Vital signs are stable. General: The patient appeared well nourished and normally developed. HEENT: Head exam is unremarkable. Neck is without jugular venous distension. LUNGS: Breath sounds decreased. HEART: Rate and Rhythm are regular. ABDOMEN: Soft, no distention. EXTREMITITES: No edema. Objective - Vital Signs Vital signs: Vital Signs Temp 98 F 03/31/21 08:45 Pulse 80 03/31/21 08:45 Resp 16 03/31/21 08:45 BP 95/60 03/31/21 08:45 Pulse Ox 98 03/31/21 08:45 Intake & Output 03/30/21 03/31/21 03/31/21 18:59 06:59 18:59 Intake Total 877 240 Output Total 300 1125 Balance 577 -1125 240 Weight 81.6 kg Intake: IV 50 Intake, IV Titration 350 Amount Sodium Chloride 0.9% 1, 350 000 ml @ 50 mls/hr IV . Q20H [facility] Rx#:[id number] Oral 477 240 Output: Urine 300 1125 Other: Voiding Method Urinal Urinal # Voids 500 1 - Labs CBC & Chem 7: 03/30/21 08:16 03/31/21 07:43 Labs: Abnormal Lab Results - Last 24 Hours (Table) 03/30/21 03/30/21 03/30/21 Range/Units 08:16 17:04 19:51 RBC 2.38 L (4.30-5.90) m/uL Hgb 9.1 L (13.0-17.5) gm/dL Hct 28.2 L (39.0-53.0) % MCV 118.6 H (80.0-100.0) fL MCH 38.3 H (25.0-35.0) pg RDW 16.3 H (11.5-15.5) % Lymphocytes # 0.6 L (1.0-4.8) k/uL Macrocytosis Marked A Carbon Dioxide (22-30) mmol/L Creatinine (0.66-1.25) mg/dL Glucose (74-99) mg/dL POC Glucose (mg/dL) 168 H 169 H (75-99) mg/dL 03/31/21 03/31/21 03/31/21 Range/Units 06:10 06:22 07:43 RBC (4.30-5.90) m/uL Hgb (13.0-17.5) gm/dL Hct (39.0-53.0) % MCV (80.0-100.0) fL MCH (25.0-35.0) pg RDW (11.5-15.5) % Lymphocytes # (1.0-4.8) k/uL Macrocytosis Carbon Dioxide 21 L (22-30) mmol/L Creatinine 1.48 H (0.66-1.25) mg/dL Glucose 112 H (74-99) mg/dL POC Glucose (mg/dL) 62 L 73 L (75-99) mg/dL Assessment and Plan Plan: Assessment: 1. Chronic kidney disease stage IIIB with baseline creatinine in the range of 1.5-1.9 secondary to diabetic kidney disease. GFR at baseline currently. Recent ultrasound revealed no evidence of hydronephrosis. 2. Chest pain or shortness of breath. No evidence of PE on CTA done March 29. On IV heparin. 3. Acute on chronic systolic CHF with ejection fraction of 35-40% and moderate to severe tricuspid regurgitation and severe pulmonary hypertension. 4. History of coronary artery disease. Cardiac catheterization done this admission revealed calcified vessels. 5. Anemia of chronic kidney disease. Iron replete. On Aranesp. 6. Metabolic acidosis secondary to chronic kidney disease. Maintained on oral bicarbonate. 7. Hypomagnesemia from diuresis and poor intake. Replaced. Better. 8. Hypokalemia from diuresis. Plan: Maintain IV Lasix. Avoid nephrotoxins. Continue to monitor renal function and urine output. Monitor for contrast- induced acute kidney injury. Patient received IV contrast on March 29 and March 30. Replace potassium. 40 mEq today.
--- NOTE | 2021-03-31 09:39 | P.PN ---
Subjective Progress Note Date: 03/31/21 Principal diagnosis: Acute non-ST segment elevated MD Acute exacerbation of congestive heart failure likely acute on chronic diastolic heart failure Bilateral pleural effusion right more than the left History of smoking and nicotine use and COPD Resolving pneumonia and tracheobronchitis 03/31/2021, patient is awake and alert breathing comfortably no obvious distress present, patient is being diuresed with Lasix, patient is on maximal medical therapy for severe coronary artery disease 03/30/2021 Patient is status post cardiac cath and angiogram, no intervention is done decision was done to maximize medical therapy, patient is being planned to start on diuretics for anasarca and pleural effusion This is a 70-year-old male with prior history of the dyslipidemia hypertension hypertensive cardiovascular disease recently recovering from acute tracheobronchitis with improvement in symptoms Acute onset of chest pain and palpitation came into the hospital workup and evaluation revealed elevated troponin patient has been admitted to hospital for further evaluation, pupils and VQ scan is a undetermined at, CT of the chest negative for pulmonary embolism bilateral fluid overload has been noted with moderate site right pleural effusion evidence of pulmonary hyper tension 5 mm nodules noted which are unchanged compared to prior radiographic studies patient is now being considered for cardiac cath angiogram tomorrow currently on IV heparin patient has a chronic kidney disease of BUN/creatinine of 16 and 1.47,, BNP is over 20,000, troponin up from 7.9-14, patient does have a history of coronary artery disease status post CABG however 2 of the graft has been blocked as per patient Objective - Vital Signs Vital signs: Vital Signs Temp 98 F 03/31/21 08:45 Pulse 80 03/31/21 08:45 Resp 16 03/31/21 08:45 BP 95/60 03/31/21 08:45 Pulse Ox 98 03/31/21 08:45 Intake & Output 03/30/21 03/31/21 03/31/21 18:59 06:59 18:59 Intake Total 877 240 Output Total 300 1125 Balance 577 -1125 240 Weight 81.6 kg Intake: IV 50 Intake, IV Titration 350 Amount Sodium Chloride 0.9% 1, 350 000 ml @ 50 mls/hr IV . Q20H [facility] Rx#:[id number] Oral 477 240 Output: Urine 300 1125 Other: Voiding Method Urinal Urinal Urinal # Voids 500 1 - Exam - Constitutional General appearance: average body habitus, cooperative, disheveled - EENT Eyes: EOMI, PERRLA ENT: normal oropharynx Ears: bilateral: normal - Neck Neck: normal ROM Carotids: bilateral: upstroke normal Thyroid: bilateral: normal size - Respiratory Respiratory: bilateral: diminished - Cardiovascular Rhythm: regular Heart sounds: normal: S1, S2 - Gastrointestinal General gastrointestinal: normal bowel sounds, soft - Integumentary Integumentary: normal turgor - Neurologic Neurologic: CNII-XII intact - Musculoskeletal Musculoskeletal: gait normal, generalized weakness, strength equal bilaterally - Psychiatric Psychiatric: A&O x's 3, appropriate affect, intact judgment & insight - Labs CBC & Chem 7: 03/30/21 08:16 03/31/21 07:43 Labs: Abnormal Lab Results - Last 24 Hours (Table) 03/30/21 03/30/21 03/30/21 Range/Units 08:16 17:04 19:51 Lymphocytes # 0.6 L (1.0-4.8) k/uL Carbon Dioxide (22-30) mmol/L Creatinine (0.66-1.25) mg/dL Glucose (74-99) mg/dL POC Glucose (mg/dL) 168 H 169 H (75-99) mg/dL 03/31/21 03/31/21 03/31/21 Range/Units 06:10 06:22 07:43 Lymphocytes # (1.0-4.8) k/uL Carbon Dioxide 21 L (22-30) mmol/L Creatinine 1.48 H (0.66-1.25) mg/dL Glucose 112 H (74-99) mg/dL POC Glucose (mg/dL) 62 L 73 L (75-99) mg/dL Assessment and Plan Assessment: Acute non-ST segment elevated MD Acute exacerbation of congestive heart failure likely acute on chronic diastolic heart failure Bilateral pleural effusion right more than the left History of smoking and nicotine use and COPD Resolving pneumonia and tracheobronchitis Plan: Continue supportive care and monitor observe pleural effusion no plans for aggressive intervention gentle diuresis to be done patient is status post cardiac cath and angiogram to assess ischemic cardiomyopathy and the status of the graft and [place] vessels O follow closely further recommendations pending Time with Patient: Greater than 30
[2021-03-31 11:34] LABS: Glucose,Whole Blood 173 mg/dL (75-99)
[2021-03-31] MEDS: FUROSEMIDE 10 MG/ML 4 ML VIAL IV SCH ×2 (12:50→21:30)
--- NOTE | 2021-03-31 13:54 | P.PN ---
Subjective Progress Note Date: 03/31/21 HISTORY OF PRESENT ILLNESS: This is a 70-year-old male who underwent cardiac catheterization yesterday with Dr. Ngo. Cardiac catheter a short reveal occluded vein grafts which is known from previous heart catheterization. Patent PARSONS to LAD. Diffuse disease involving the [place] coronary arteries and they are small caliber vessels and amendable for any revascularization at this point. Medical management was recommended. Patient denies chest pain or pressure. He denies shortness of breath. Vital signs are stable. He remains on IV Lasix per nephrology. Creatinine 1.48. PHYSICAL EXAM: VITAL SIGNS: Reviewed. GENERAL: Well-developed in no acute distress. NECK: Supple. No JVD or thyromegaly LUNGS: Respirations even and unlabored. Lungs essentially clear to auscultation bilaterally. HEART: Regular rate and rhythm. S1 and S2 heard. EXTREMITIES: Normal range of motion. No clubbing or cyanosis. Peripheral pulses intact. No lower extremity edema. Right groin cath site soft with no hematoma noted. ASSESSMENT: Non-STEMI Elevated d-dimer, CT negative for PE Chronic kidney disease Coronary artery disease with previous CABG Chronic myeloid leukemia PLAN: Continue IV Lasix per nephrology Accurate I&O Monitor kidney function Continue additional cardiac medications Further recommendations pending patient's course Anticipate discharge home tomorrow Nurse practitioner note has been reviewed by physician. Signing provider agrees with the documented findings, assessment, and plan of care. Objective - Vital Signs Vital signs: Vital Signs Temp 98 F 03/31/21 08:45 Pulse 72 03/31/21 13:10 Resp 16 03/31/21 13:10 BP 98/50 03/31/21 12:48 Pulse Ox 96 03/31/21 12:48 Intake & Output 03/30/21 03/31/21 03/31/21 18:59 06:59 18:59 Intake Total 877 240 Output Total 300 1125 200 Balance 577 -1125 40 Weight 81.6 kg Intake: IV 50 Intake, IV Titration 350 Amount Sodium Chloride 0.9% 1, 350 000 ml @ 50 mls/hr IV . Q20H [facility] Rx#:[id number] Oral 477 240 Output: Urine 300 1125 200 Other: Voiding Method Urinal Urinal Urinal # Voids 500 1 1 - Labs CBC & Chem 7: 03/30/21 08:16 03/31/21 07:43 Labs: Abnormal Lab Results - Last 24 Hours (Table) 03/30/21 03/30/21 03/31/21 Range/Units 17:04 19:51 06:10 Carbon Dioxide (22-30) mmol/L Creatinine (0.66-1.25) mg/dL Glucose (74-99) mg/dL POC Glucose (mg/dL) 168 H 169 H 62 L (75-99) mg/dL 03/31/21 03/31/21 03/31/21 Range/Units 06:22 07:43 11:33 Carbon Dioxide 21 L (22-30) mmol/L Creatinine 1.48 H (0.66-1.25) mg/dL Glucose 112 H (74-99) mg/dL POC Glucose (mg/dL) 73 L 173 H (75-99) mg/dL
[2021-03-31] MEDS: ATORVASTATIN 80 MG TAB PO SCH (16:21)
[2021-03-31 16:42] LABS: Glucose,Whole Blood 142 mg/dL (75-99)
[2021-03-31] MEDS ORDERED: SODIUM CHLORIDE 0.9% 500 ML 250 ML IV ONE (17:54)
[2021-03-31 19:44] LABS: Glucose,Whole Blood 176 mg/dL (75-99)
[2021-04-01] MEDS: METOPROLOL TARTRATE 25 MG TAB PO SCH ×2 (00:28→08:57)
[2021-04-01 06:08] LABS: Glucose,Whole Blood 101 mg/dL (75-99)
[2021-04-01 07:45] LABS: Calcium 9.1 mg/dL (8.4-10.2); Magnesium 1.5 mg/dL (1.6-2.3); Potassium 3.7 mmol/L (3.5-5.1)
[2021-04-01] MEDS: cilostazoL 100 MG TAB PO SCH (08:56)
[2021-04-01] MEDS: SODIUM BICARBONATE TAB 650 MG TAB PO SCH (08:56)
[2021-04-01] MEDS: ASPIRIN 81 MG PO SCH (08:56)
[2021-04-01] MEDS: DOXYCYCLINE 100 MG CAP PO SCH (08:56)
[2021-04-01] MEDS ORDERED: FUROSEMIDE 40 MG TAB PO SCH (09:00)
[2021-04-01] MEDS: MAGNESIUM SULFATE-D5W PMX 1 GM in DEXTROSE/WATER 1 100ML.BAG IVPB SCH ×2 (09:08→10:27)
--- NOTE | 2021-04-01 09:09 | P.PN ---
Subjective Progress Note Date: 04/01/21 Principal diagnosis: Acute non-ST segment elevated [place] Acute exacerbation of congestive heart failure likely acute on chronic diastolic heart failure Bilateral pleural effusion right more than the left History of smoking and nicotine use and COPD Resolving pneumonia and tracheobronchitis 04/01/2021, patient seen eval examined during the rounds labs reviewed medications reviewed care plan discussed, respiratory status continued to improve with diuresis, cough congestion shortness of breath continued to improve as well, patient is on medical maximal therapy for the coronary artery disease 03/31/2021, patient is awake and alert breathing comfortably no obvious distress present, patient is being diuresed with Lasix, patient is on maximal medical therapy for severe coronary artery disease 03/30/2021 Patient is status post cardiac cath and angiogram, no intervention is done decision was done to maximize medical therapy, patient is being planned to start on diuretics for anasarca and pleural effusion This is a 70-year-old male with prior history of the dyslipidemia hypertension hypertensive cardiovascular disease recently recovering from acute tracheobronchitis with improvement in symptoms Acute onset of chest pain and palpitation came into the hospital workup and evaluation revealed elevated troponin patient has been admitted to hospital for further evaluation, pupils and VQ scan is a undetermined at, CT of the chest negative for pulmonary embolism bilateral fluid overload has been noted with moderate site right pleural effusion evidence of pulmonary hyper tension 5 mm nodules noted which are unchanged compared to prior radiographic studies patient is now being considered for cardiac cath angiogram tomorrow currently on IV heparin patient has a chronic kidney disease of BUN/creatinine of 16 and 1.47,, BNP is over 20,000, troponin up from 7.9-14, patient does have a history of coronary artery disease status post CABG however 2 of the graft has been blocked as per patient Objective - Vital Signs Vital signs: Vital Signs Temp 97.9 F 04/01/21 04:07 Pulse 89 04/01/21 04:07 Resp 20 04/01/21 04:07 BP 107/60 04/01/21 04:07 Pulse Ox 94 L 04/01/21 04:07 Intake & Output 03/31/21 04/01/21 04/01/21 18:59 06:59 18:59 Intake Total 360 120 Output Total 200 1075 Balance 160 -1075 120 Weight 79.7 kg Intake: Oral 360 120 Output: Urine 200 1075 Other: Voiding Method Urinal Urinal # Voids 1 - Exam - Constitutional General appearance: average body habitus, cooperative, disheveled - EENT Eyes: EOMI, PERRLA ENT: normal oropharynx Ears: bilateral: normal - Neck Neck: normal ROM Carotids: bilateral: upstroke normal Thyroid: bilateral: normal size - Respiratory Respiratory: bilateral: diminished - Cardiovascular Rhythm: regular Heart sounds: normal: S1, S2 - Gastrointestinal General gastrointestinal: normal bowel sounds, soft - Integumentary Integumentary: normal turgor - Neurologic Neurologic: CNII-XII intact - Musculoskeletal Musculoskeletal: gait normal, generalized weakness, strength equal bilaterally - Psychiatric Psychiatric: A&O x's 3, appropriate affect, intact judgment & insight - Labs CBC & Chem 7: 03/30/21 08:16 04/01/21 06:55 Labs: Abnormal Lab Results - Last 24 Hours (Table) 03/31/21 03/31/21 03/31/21 Range/Units 11:33 16:41 19:42 BUN (9-20) mg/dL Creatinine (0.66-1.25) mg/dL POC Glucose (mg/dL) 173 H 142 H 176 H (75-99) mg/dL Magnesium (1.6-2.3) mg/dL 04/01/21 04/01/21 Range/Units 06:06 06:55 BUN 22 H (9-20) mg/dL Creatinine 1.58 H (0.66-1.25) mg/dL POC Glucose (mg/dL) 101 H (75-99) mg/dL Magnesium 1.5 L (1.6-2.3) mg/dL Assessment and Plan Assessment: Acute non-ST segment elevated [place] Acute exacerbation of congestive heart failure likely acute on chronic diastolic heart failure Bilateral pleural effusion right more than the left History of smoking and nicotine use and COPD Resolving pneumonia and tracheobronchitis Plan: Continue supportive care and monitor observe pleural effusion no plans for aggressive intervention gentle diuresis to be done patient is status post cardiac cath and angiogram to assess ischemic cardiomyopathy and the status of the graft and [place] vessels O follow closely further recommendations pending Time with Patient: Greater than 30
[2021-04-01] MEDS ORDERED: POTASSIUM CHLORIDE ER 20 MEQ TAB.ER PO STA (09:47)
--- NOTE | 2021-04-01 09:51 | P.PN ---
Subjective Patient is seen in follow-up for chronic kidney disease. Renal function is fairly stable. Currently resting in bed. On room air. No chest pain or shortness of breath. Good urine output. Vital signs are stable. General: The patient appeared well nourished and normally developed. HEENT: Head exam is unremarkable. Neck is without jugular venous distension. LUNGS: Breath sounds decreased. HEART: Rate and Rhythm are regular. ABDOMEN: Soft, no distention. EXTREMITITES: No edema. Objective - Vital Signs Vital signs: Vital Signs Temp 97.9 F 04/01/21 04:07 Pulse 89 04/01/21 04:07 Resp 20 04/01/21 04:07 BP 107/60 04/01/21 04:07 Pulse Ox 94 L 04/01/21 04:07 Intake & Output 03/31/21 04/01/21 04/01/21 18:59 06:59 18:59 Intake Total 360 120 Output Total 200 1075 Balance 160 -1075 120 Weight 79.7 kg Intake: Oral 360 120 Output: Urine 200 1075 Other: Voiding Method Urinal Urinal # Voids 1 - Labs CBC & Chem 7: 03/30/21 08:16 04/01/21 06:55 Labs: Abnormal Lab Results - Last 24 Hours (Table) 03/31/21 03/31/21 03/31/21 Range/Units 11:33 16:41 19:42 BUN (9-20) mg/dL Creatinine (0.66-1.25) mg/dL POC Glucose (mg/dL) 173 H 142 H 176 H (75-99) mg/dL Magnesium (1.6-2.3) mg/dL 04/01/21 04/01/21 Range/Units 06:06 06:55 BUN 22 H (9-20) mg/dL Creatinine 1.58 H (0.66-1.25) mg/dL POC Glucose (mg/dL) 101 H (75-99) mg/dL Magnesium 1.5 L (1.6-2.3) mg/dL Assessment and Plan Plan: Assessment: 1. Chronic kidney disease stage IIIB with baseline creatinine in the range of 1.5-1.9 secondary to diabetic kidney disease. GFR at baseline currently. Recent ultrasound revealed no evidence of hydronephrosis. 2. Chest pain or shortness of breath. No evidence of PE on CTA done March 29. On IV heparin. 3. Acute on chronic systolic CHF with ejection fraction of 35-40% and moderate to severe tricuspid regurgitation and severe pulmonary hypertension. 4. History of coronary artery disease. Cardiac catheterization done this admission revealed calcified vessels. 5. Anemia of chronic kidney disease. Iron replete. On Aranesp. 6. Metabolic acidosis secondary to chronic kidney disease. Maintained on oral bicarbonate. Better. 7. Hypomagnesemia from diuresis and poor intake. 8. Hypokalemia from diuresis. Plan: Lasix changed to oral by cardiology. Avoid nephrotoxins. Continue to monitor renal function and urine output. Monitor for contrast- induced acute kidney injury. Patient received IV contrast on March 29 and March 30. Replace potassium and magnesium.
[2021-04-01 11:40] VITALS: BP 102/51; RESP 16; TEMP 97.9
[2021-04-01 11:49] LABS: Glucose,Whole Blood 152 mg/dL (75-99)
--- NOTE | 2021-04-01 12:02 | P.PN ---
Subjective Progress Note Date: 04/01/21 HISTORY OF PRESENT ILLNESS: This is a 70-year-old male who underwent cardiac catheterization yesterday with Dr. Ngo. Cardiac catheter a short reveal occluded vein grafts which is known from previous heart catheterization. Patent PARSONS to LAD. Diffuse disease involving the [place] coronary arteries and they are small caliber vessels and amendable for any revascularization at this point. Medical management was recommended. Patient denies chest pain or pressure. He denies shortness of breath. Vital signs are stable. He remains on IV Lasix per nephrology. Creatinine 1.48. 04/01/2021 Patient examined this morning at the bedside. Patient denies chest pain or pressure. He denies shortness of breath. Patient remains on IV Lasix. Creatinine increased to 1.58. Magnesium 1.5. Patient is hoping to be discharged home today. PHYSICAL EXAM: VITAL SIGNS: Reviewed. GENERAL: Well-developed in no acute distress. NECK: Supple. No JVD or thyromegaly LUNGS: Respirations even and unlabored. Lungs essentially clear to auscultation bilaterally. HEART: Regular rate and rhythm. S1 and S2 heard. EXTREMITIES: Normal range of motion. No clubbing or cyanosis. Peripheral pulses intact. No lower extremity edema. Right groin cath site soft with no hematoma noted. ASSESSMENT: Non-STEMI Elevated d-dimer, CT negative for PE Chronic kidney disease Coronary artery disease with previous CABG Chronic myeloid leukemia PLAN: Discontinue IV Lasix. Transition patient to oral Lasix Replace magnesium Continue additional cardiac medications Patient is stable for discharge home today from a cardiac standpoint. He is to follow up outpatient with Dr. Ngo Nurse practitioner note has been reviewed by physician. Signing provider agrees with the documented findings, assessment, and plan of care. Objective - Vital Signs Vital signs: Vital Signs Temp 97.9 F 04/01/21 11:35 Pulse 62 04/01/21 11:35 Resp 16 04/01/21 11:35 BP 102/51 04/01/21 11:35 Pulse Ox 92 L 04/01/21 11:35 Intake & Output 03/31/21 04/01/21 04/01/21 18:59 06:59 18:59 Intake Total 360 720 Output Total 200 1075 350 Balance 160 -1075 370 Weight 79.7 kg Intake: Intake, IV Titration 200 Amount Magnesium Sulfate-D5w Pmx 200 1 gm In Dextrose/Water 1 100ml.bag @ 100 mls/hr IVPB Q1H [facility] Rx#: [id number] Oral 360 520 Output: Urine 200 1075 350 Other: Voiding Method Urinal Urinal Urinal # Voids 1 - Labs CBC & Chem 7: 03/30/21 08:16 04/01/21 06:55 Labs: Abnormal Lab Results - Last 24 Hours (Table) 03/31/21 03/31/21 04/01/21 Range/Units 16:41 19:42 06:06 BUN (9-20) mg/dL Creatinine (0.66-1.25) mg/dL POC Glucose (mg/dL) 142 H 176 H 101 H (75-99) mg/dL Magnesium (1.6-2.3) mg/dL 04/01/21 04/01/21 Range/Units 06:55 11:47 BUN 22 H (9-20) mg/dL Creatinine 1.58 H (0.66-1.25) mg/dL POC Glucose (mg/dL) 152 H (75-99) mg/dL Magnesium 1.5 L (1.6-2.3) mg/dL
[2021-04-01] MEDS ORDERED: MAGNESIUM SULFATE-D5W PMX 1 GM in DEXTROSE/WATER 1 100ML.BAG IVPB SCH (13:15)
[2021-04-01 14:30] VITALS: BMI 25.2
[2021-04-01 15:06] VITALS: PULSE 89
== END 2021-04-01 15:29 | disposition home or self-care (01) | DRG 280 ==
LOC: EC 14:06 → 3SCARD 18:13
PROVIDERS: ADMIT Internal Medicine; ATTEND Internal Medicine
PROC: B2111ZZ Fluoroscopy of Multiple Coronary Arteries using Low Osmolar Contrast (ICD-10-PCS; 2021-03-30)
PROC: 4A023N7 Measurement of Cardiac Sampling and Pressure, Left Heart, Percutaneous Approach (ICD-10-PCS; principal; 2021-03-30 13:00)
DX: I21.4 Non-ST elevation (NSTEMI) myocardial infarction (principal); J18.9 Pneumonia, unspecified organism; I50.43 Acute on chronic combined systolic (congestive) and diastolic (congestive) heart failure; R18.8 Other ascites; J44.0 Chronic obstructive pulmonary disease with (acute) lower respiratory infection; I13.0 Hypertensive heart and chronic kidney disease with heart failure and stage 1 through stage 4 chronic kidney disease, or unspecified chronic kidney disease; C92.10 Chronic myeloid leukemia, BCR/ABL-positive, not having achieved remission; E87.2 Acidosis; Z95.1 Presence of aortocoronary bypass graft; Z87.891 Personal history of nicotine dependence; Z80.8 Family history of malignant neoplasm of other organs or systems; Z79.899 Other long term (current) drug therapy; Z79.84 Long term (current) use of oral hypoglycemic drugs; Z79.82 Long term (current) use of aspirin; Z79.02 Long term (current) use of antithrombotics/antiplatelets; R09.02 Hypoxemia; N18.32 Chronic kidney disease, stage 3b; E87.6 Hypokalemia; E83.42 Hypomagnesemia; E78.5 Hyperlipidemia, unspecified; E11.51 Type 2 diabetes mellitus with diabetic peripheral angiopathy without gangrene; E11.22 Type 2 diabetes mellitus with diabetic chronic kidney disease; D63.1 Anemia in chronic kidney disease; D53.9 Nutritional anemia, unspecified; I07.1 Rheumatic tricuspid insufficiency; I25.10 Atherosclerotic heart disease of native coronary artery without angina pectoris; I27.21 Secondary pulmonary arterial hypertension; I45.10 Unspecified right bundle-branch block
CPT/HCPCS: 36415; 71046; 71275; 78582; 80048; 80053; 82607; 82728; 82747; 83540; 83550; 83735; 83880; 84484; 85025; 85379; 85610; 85730; 93005; 93306; 93454; 96374; 96375; 99285

== ENCOUNTER → 2021-08-12 | Outpatient (CLI) | payer MEDICARE ==
--- NOTE | 2021-08-12 15:15 | XR ---
EXAMINATION TYPE: XR chest 2V DATE OF EXAM: 08/12/2021 COMPARISON: Chest x-ray March 28, 2021. CT thorax March 29, 2021 HISTORY: Shortness of breath. Recent right-sided thoracentesis. TECHNIQUE: Frontal and lateral views of the chest are obtained. FINDINGS: Persistent small to moderate-sized right pleural effusion. Background chronic emphysematou s and pulmonary fibrotic changes. Persistent right midlung opacity corresponds to fluid within fissur e on CT. No pneumothorax seen. Stable mild cardiomegaly. Overlying sternal wires and mediastinal clip s redemonstrated. Osseous structures are demineralized. IMPRESSION: Chronic changes and mild cardiomegaly with small to moderate-sized right pleural effusio n redemonstrated. No pneumothorax noted. No significant change from most recent prior studies.
== END | disposition home or self-care (01) ==
LOC: RADXRMAIN 14:53
PROVIDERS: ATTEND Internal Medicine Hematology & Oncology
DX: J90 Pleural effusion, not elsewhere classified (principal); I51.7 Cardiomegaly; C92.10 Chronic myeloid leukemia, BCR/ABL-positive, not having achieved remission; M10.9 Gout, unspecified; N18.9 Chronic kidney disease, unspecified
CPT/HCPCS: 71046

== ENCOUNTER 2022-01-31 16:35 | Inpatient (IN) | payer MEDICARE ==
[2022-01-31 20:54] LABS: Albumin 3.8 g/dL (3.5-5.0); Calcium 8.7 mg/dL (8.4-10.2); Magnesium 2.2 mg/dL (1.6-2.3); Potassium 3.8 mmol/L (3.5-5.1); Total Bilirubin 0.8 mg/dL (0.2-1.3); Total Protein 6.9 g/dL (6.3-8.2)
[2022-01-31 20:57] LABS: INR 1.2 (<1.2); Partial Thromboplastin Time 27.5 sec (22.0-30.0); Prothrombin Time 12.8 sec (9.0-12.0)
--- NOTE | 2022-01-31 21:07 | ED ---
General Adult HPI - General Chief complaint: Shortness of Breath Stated complaint: Difficulty Breathing Time Seen by Provider: 01/31/22 19:33 Source: patient, RN notes reviewed, old records reviewed Mode of arrival: ambulatory Limitations: no limitations - History of Present Illness Initial comments: Patient is a 71-year-old male with past medical history remarkable for leukemia on oral chemo, heart failure, hypertension, coronary artery disease, coronary bypass surgery, hypertension and presents emergency Department complaining of dyspnea worse on exertion for the last 7 months. He was sent here by oncology mid-level provider to rule out PE. Denies being on blood thinners. No lower extremity swelling worse than normal. His chronic pitting edema. Denies abdominal pain, nausea, vomiting. Denies chest pain. Denies urinary complaints. He states that this shortness of breath has been ongoing for 7 months. Typically runs in the high 80% at home on pulse ox which is not new. This is not changed, and is not on action at home. States symptoms as well as pulse ox readings have been present for weeks to months at this point. Was instructed to come to the emergency department to rule out pulmonary embolism and blood clot at this time. No history of blood clots. Denies worsening orthopnea. Denies PND. - Related Data Home Medications Medication Instructions Recorded Confirmed Glimepiride [Amaryl] 1 mg PO DAILY 08/01/17 01/31/22 Pioglitazone [Actos] 15 mg PO DAILY 08/01/17 01/31/22 Atorvastatin Calcium [Lipitor] 80 mg PO HS 03/28/21 01/31/22 Ferrous Sulfate [Iron (65 MG 325 mg PO DAILY 03/28/21 01/31/22 Elemental)] allopurinoL [Zyloprim] 300 mg PO W/SUPPER 03/28/21 01/31/22 calcitrioL [Calcitriol] 0.25 mcg PO SUWE 03/28/21 01/31/22 Aspirin 81 mg PO DAILY 01/31/22 01/31/22 Bosutinib [Bosulif] 300 mg PO W/SUPPER 01/31/22 01/31/22 Furosemide [Lasix] 40 mg PO HS 01/31/22 01/31/22 Metoprolol Succinate [Metoprolol 25 mg PO HS 01/31/22 01/31/22 Succinate ER] Potassium Chloride ER [K-Dur 10] 10 meq PO DAILY 01/31/22 01/31/22 Allergies Allergy/AdvReac Type Severity Reaction Status Date / Time albuterol [From DuoNeb] Allergy Chest Pain Verified 01/31/22 22:44 ipratropium [From DuoNeb] Allergy Chest Pain Verified 01/31/22 22:44 Review of Systems ROS Statement: Those systems with pertinent positive or pertinent negative responses have been documented in the HPI. Review of Systems: CONST: Denies fever EYES: Denies blurry vision ENT: Denies nasal congestion C/V: Denies Chest pain RESP: Endorses chronic shortness of breath GI: Denies abdominal pain : Denies dysuria SKIN: Denies rash. MSK: Denies joint pain. NEURO: Denies headache ROS Other: All systems not noted in ROS Statement are negative. Past Medical History Past Medical History: Coronary Artery Disease (CAD), Cancer, Diabetes Mellitus, Hyperlipidemia, Hypertension Additional Past Medical History / Comment(s): PVD carotid stenosis. The patient does have a 40 year pack per day smoking history but has not had any pulmonary symptoms. No inhalers, no oxygen at home. History of Any Multi-Drug Resistant Organisms: None Reported Past Surgical History: Coronary Bypass/CABG, Orthopedic Surgery Additional Past Surgical History / Comment(s): screws in right knee Past Anesthesia/Blood Transfusion Reactions: No Reported Reaction Past Psychological History: No Psychological Hx Reported Smoking Status: Former smoker Past Alcohol Use History: None Reported Past Drug Use History: None Reported - Past Family History Father Additional Family Medical History / Comment(s): of throat cancer Mother Additional Family Medical History / Comment(s): fell and broke hip then General Exam - General Exam Comments Initial Comments: General: Appears in no acute distress. HEAD: Normal with no signs of head trauma. EYES: PERRLA, EOMI, conjunctiva normal, no discharge. ENT: Hearing grossly intact, normal oropharynx. RESPIRATORY: Clear breath sounds bilaterally. No wheezes, rales, or rhonchi. Mildly hypoxic on room air ranging from 87-90%. Improved on 2 L nasal cannula to 95% or higher. No increased work of breathing. C/V: Regular rate and rhythm. S1 and S2 auscultated, bilateral 1-2+ pitting edema that is symmetrical in both lower extremities., peripheral pulses 2+ and intact throughout ABD: Abd is soft, nontender, nondistended EXT: Normal range of motion, no obvious deformity SKIN: No rashes or lesions observed on exposed skin. NEURO: Alert and oriented 4. No focal sensory strength deficits. Limitations: no limitations Course Vital Signs 01/31/22 01/31/22 01/31/22 19:22 19:41 22:30 Temperature 98 F Pulse Rate 73 64 67 Respiratory 26 H 25 H 20 Rate Blood Pressure 114/57 123/62 148/77 O2 Sat by Pulse 87 L 99 97 Oximetry 01/31/22 23:02 Temperature Pulse Rate 61 Respiratory 23 Rate Blood Pressure 127/63 O2 Sat by Pulse 95 Oximetry Medical Decision Making - Medical Decision Making Based on the patient's presentation and physical exam, I'm concerned for what appears to be chronic dyspnea for this patient. Cannot rule out cardiopulmonary etiology at this time. Pulmonary embolism is felt concerning considering the history of cancer and current chemo therapy. Could also be related to heart failure based on the symptoms. Therefore we will obtain cardio pulmonary workup including d-dimer. Patient was in agreement this plan. He'll be continued on 2 L nasal cannula for support. EKG shows no signs of acute ischemia. No changes when compared to prior EKGs. Chest x-ray reveals mild chronic congestive heart failure, relatively small old exam. Laboratory studies are remarkable for a hemoglobin of 11.0. Slight thrombocytopenia is present with a platelet count of 140 which is somewhat chronic for the patient. D-dimer is elevated to 2.41. Patient has a HOA on CK D with be on of 32 creatinine of 2.28. Patient is volume overloaded with a BNP of 18,000 as well as troponin minimally elevated to 0.04. This could be secondary to volume overload state or HOA. No chest pain. Covid floor negative. Urine is unremarkable. I did recommend that we rule out pulmonary embolism at this time, however abdomen the patient's renal function we should not administer IV contrast for CT angiogram. Therefore patient will be admitted for a nuclear med scan, ventilation perfusion scan. We will continue to try and the troponin as well. I do not believe that the patient requires heparin administration at this time other than subcu, as his symptoms have been chronic for the last 7 months with no new hypoxia and no new symptoms. His other explanations for shortness of breath this time as well, including heart failure. I did discuss this with the admitting team who was in agreement this plan as well as oncology on-call Dr. Jo who was in agreement the plan. Patient will be given a one-time dose of Lasix here in the department may continue to diurese the patient upon admission. Kidney function needs to be monitored closely. The admitting team is under [facility] and I spoke with GALINDO Wade who was in agreement with the plan. NM study was ordered and will be completed tomorrow. As discussed above, heparin drip will be held at this time. Echo was ordered. Patient will be admitted at this time. Vital signs remain stable and wnl on 2L NC. Patient was evaluated multiple times and I updated he and his on the plan. - Lab Data Result diagrams: 01/31/22 20:34 01/31/22 20:34 Lab Results 01/31/22 01/31/22 01/31/22 Range/Units 20:34 20:34 20:34 WBC 6.2 (3.8-10.6) k/uL RBC 3.92 L (4.30-5.90) m/uL Hgb 11.0 L (13.0-17.5) gm/dL Hct 35.6 L (39.0-53.0) % MCV 90.9 (80.0-100.0) fL MCH 28.2 (25.0-35.0) pg MCHC 31.0 (31.0-37.0) g/dL RDW 19.0 H (11.5-15.5) % Plt Count 140 L (150-450) k/uL MPV 11.2 Neutrophils % 80 % Lymphocytes % 7 % Monocytes % 7 % Eosinophils % 3 % Basophils % 0 % Neutrophils # 5.0 (1.3-7.7) k/uL Lymphocytes # 0.4 L (1.0-4.8) k/uL Monocytes # 0.5 (0-1.0) k/uL Eosinophils # 0.2 (0-0.7) k/uL Basophils # 0.0 (0-0.2) k/uL Manual Slide Review Performed Large Platelets Present Hypochromasia Marked Poikilocytosis (manual Present Anisocytosis Slight Fragmented RBCs Present PT 12.8 H (9.0-12.0) sec INR 1.2 H (<1.2) APTT 27.5 (22.0-30.0) sec D-Dimer (<0.60) mg/L FEU Sodium 135 L (137-145) mmol/L Potassium 3.8 (3.5-5.1) mmol/L Chloride 103 (98-107) mmol/L Carbon Dioxide 23 (22-30) mmol/L Anion Gap 9 mmol/L BUN 32 H (9-20) mg/dL Creatinine 2.28 H (0.66-1.25) mg/dL Est GFR (CKD-EPI)AfAm 32 (>60 ml/min/1.73 sqM) Est GFR (CKD-EPI)NonAf 28 (>60 ml/min/1.73 sqM) Glucose 132 H (74-99) mg/dL Calcium 8.7 (8.4-10.2) mg/dL Magnesium 2.2 (1.6-2.3) mg/dL Total Bilirubin 0.8 (0.2-1.3) mg/dL AST 41 (17-59) U/L ALT 18 (4-49) U/L Alkaline Phosphatase 204 H (38-126) U/L Troponin I (0.000-0.034) ng/mL NT-Pro-B Natriuret Pep pg/mL Total Protein 6.9 (6.3-8.2) g/dL Albumin 3.8 (3.5-5.0) g/dL Urine Color Urine Appearance (Clear) Urine pH (5.0-8.0) Ur Specific [place] (1.001-1.035) Urine Protein (Negative) Urine Glucose (UA) (Negative) Urine Ketones (Negative) Urine Blood (Negative) Urine Nitrite (Negative) Urine Bilirubin (Negative) Urine Urobilinogen (<2.0) mg/dL Ur Leukocyte Esterase (Negative) Urine RBC (0-5) /hpf Urine WBC (0-5) /hpf Ur Squamous Epith Cells (0-4) /hpf Hyaline Casts (0-2) /lpf Urine Mucus (None) /hpf Coronavirus (PCR) (Not Detectd) Influenza Type A RNA (Not Detectd) Influenza Type B (PCR) (Not Detectd) 01/31/22 01/31/22 01/31/22 Range/Units 20:34 20:34 20:34 WBC (3.8-10.6) k/uL RBC (4.30-5.90) m/uL Hgb (13.0-17.5) gm/dL Hct (39.0-53.0) % MCV (80.0-100.0) fL MCH (25.0-35.0) pg MCHC (31.0-37.0) g/dL RDW (11.5-15.5) % Plt Count (150-450) k/uL MPV Neutrophils % % Lymphocytes % % Monocytes % % Eosinophils % % Basophils % % Neutrophils # (1.3-7.7) k/uL Lymphocytes # (1.0-4.8) k/uL Monocytes # (0-1.0) k/uL Eosinophils # (0-0.7) k/uL Basophils # (0-0.2) k/uL Manual Slide Review Large Platelets Hypochromasia Poikilocytosis (manual Anisocytosis Fragmented RBCs PT (9.0-12.0) sec INR (<1.2) APTT (22.0-30.0) sec D-Dimer (<0.60) mg/L FEU Sodium (137-145) mmol/L Potassium (3.5-5.1) mmol/L Chloride (98-107) mmol/L Carbon Dioxide (22-30) mmol/L Anion Gap mmol/L BUN (9-20) mg/dL Creatinine (0.66-1.25) mg/dL Est GFR (CKD-EPI)AfAm (>60 ml/min/1.73 sqM) Est GFR (CKD-EPI)NonAf (>60 ml/min/1.73 sqM) Glucose (74-99) mg/dL Calcium (8.4-10.2) mg/dL Magnesium (1.6-2.3) mg/dL Total Bilirubin (0.2-1.3) mg/dL AST (17-59) U/L ALT (4-49) U/L Alkaline Phosphatase (38-126) U/L Troponin I 0.040 H* (0.000-0.034) ng/mL NT-Pro-B Natriuret Pep 70763 pg/mL Total Protein (6.3-8.2) g/dL Albumin (3.5-5.0) g/dL Urine Color Urine Appearance (Clear) Urine pH (5.0-8.0) Ur Specific [place] (1.001-1.035) Urine Protein (Negative) Urine Glucose (UA) (Negative) Urine Ketones (Negative) Urine Blood (Negative) Urine Nitrite (Negative) Urine Bilirubin (Negative) Urine Urobilinogen (<2.0) mg/dL Ur Leukocyte Esterase (Negative) Urine RBC (0-5) /hpf Urine WBC (0-5) /hpf Ur Squamous Epith Cells (0-4) /hpf Hyaline Casts (0-2) /lpf Urine Mucus (None) /hpf Coronavirus (PCR) (Not Detectd) Influenza Type A RNA Not Detected (Not Detectd) Influenza Type B (PCR) Not Detected (Not Detectd) 01/31/22 01/31/22 01/31/22 Range/Units 20:34 21:57 22:33 WBC (3.8-10.6) k/uL RBC (4.30-5.90) m/uL Hgb (13.0-17.5) gm/dL Hct (39.0-53.0) % MCV (80.0-100.0) fL MCH (25.0-35.0) pg MCHC (31.0-37.0) g/dL RDW (11.5-15.5) % Plt Count (150-450) k/uL MPV Neutrophils % % Lymphocytes % % Monocytes % % Eosinophils % % Basophils % % Neutrophils # (1.3-7.7) k/uL Lymphocytes # (1.0-4.8) k/uL Monocytes # (0-1.0) k/uL Eosinophils # (0-0.7) k/uL Basophils # (0-0.2) k/uL Manual Slide Review Large Platelets Hypochromasia Poikilocytosis (manual Anisocytosis Fragmented RBCs PT (9.0-12.0) sec INR (<1.2) APTT (22.0-30.0) sec D-Dimer 2.41 H (<0.60) mg/L FEU Sodium (137-145) mmol/L Potassium (3.5-5.1) mmol/L Chloride (98-107) mmol/L Carbon Dioxide (22-30) mmol/L Anion Gap mmol/L BUN (9-20) mg/dL Creatinine (0.66-1.25) mg/dL Est GFR (CKD-EPI)AfAm (>60 ml/min/1.73 sqM) Est GFR (CKD-EPI)NonAf (>60 ml/min/1.73 sqM) Glucose (74-99) mg/dL Calcium (8.4-10.2) mg/dL Magnesium (1.6-2.3) mg/dL Total Bilirubin (0.2-1.3) mg/dL AST (17-59) U/L ALT (4-49) U/L Alkaline Phosphatase (38-126) U/L Troponin I (0.000-0.034) ng/mL NT-Pro-B Natriuret Pep pg/mL Total Protein (6.3-8.2) g/dL Albumin (3.5-5.0) g/dL Urine Color Yellow Urine Appearance Clear (Clear) Urine pH 5.5 (5.0-8.0) Ur Specific [place] 1.017 (1.001-1.035) Urine Protein 1+ H (Negative) Urine Glucose (UA) Negative (Negative) Urine Ketones Negative (Negative) Urine Blood Trace H (Negative) Urine Nitrite Negative (Negative) Urine Bilirubin Negative (Negative) Urine Urobilinogen 2.0 (<2.0) mg/dL Ur Leukocyte Esterase Negative (Negative) Urine RBC 7 H (0-5) /hpf Urine WBC 2 (0-5) /hpf Ur Squamous Epith Cells <1 (0-4) /hpf Hyaline Casts 15 H (0-2) /lpf Urine Mucus Rare H (None) /hpf Coronavirus (PCR) Not Detected (Not Detectd) Influenza Type A RNA (Not Detectd) Influenza Type B (PCR) (Not Detectd) - EKG Data -: EKG Interpreted by Me EKG Comments: 12-lead Electrocardiogram Interpretation Note EKG was reviewed and interpreted by myself. 12-lead ECG performed at 2037 is interpreted by me as revealing normal sinus rhythm at a rate of 70 beats per minute. North is normal. VT interval is 130 ms, QR mormon is 165 ms, QTc is 508 ms.. There were no acute ST or T wave abnormalities to suggest [place] cardial ischemia or injury. There are diffuse T-wave inversions as well as signs right bundle branch block which are seen on prior EKGs. No acute changes. No acute changes on comparison. R wave progression across the precordium was satisfactory. By my interpretation this EKG is non-diagnostic for acute ischemia. Critical Care Time Critical Care Time: Yes Total Critical Care Time: 35 Critical Care Time: Upon my evaluation, this patient had a high probability of imminent or life- threatening deterioration due to CHF, HOA, rule out PE, history of leukemia, hypoxia which required my direct attention, intervention, and personal management. I have personally provided 35 minutes of critical care time exclusive of time spent on separately billable procedures. Time includes review of laboratory data, radiology results, discussion with consultants, and monitoring for potential decompensation. Interventions were performed as documented in my note. Disposition Clinical Impression: Acute kidney injury superimposed on CKD, Chronic dyspnea, CHF (congestive heart failure), Elevated troponin, History of leukemia Disposition: ADMITTED IP TO THIS [facility] Condition: Stable Time of Disposition: 22:55
--- NOTE | 2022-01-31 21:12 | XR ---
EXAMINATION TYPE: XR chest 2V DATE OF EXAM: 01/31/2022 COMPARISON: 08/12/2021 HISTORY: Short of breath TECHNIQUE: FINDINGS: Heart is enlarged. There is mild pulmonary congestion. There is bilateral blunting of the c ostophrenic angles. There are chest leads. There are sternal wires. IMPRESSION: There is evidence for some mild chronic congestive heart failure that is similar to old e xam.
[2022-01-31] MEDS ORDERED: ASPIRIN 81 MG PO STA (21:21)
[2022-01-31 22:10] LABS: Anisocytosis Slight; Basophils % (A) 0 %; Eosinophils # (A) 0.2 k/uL (0-0.7); Eosinophils % (A) 3 %; HCT 35.6 % (39.0-53.0); Hypochromasia Marked; Lymphocytes # (A) 0.4 k/uL (1.0-4.8); Lymphocytes % (A) 7 %; MCH 28.2 pg (25.0-35.0); MCV 90.9 fL (80.0-100.0); Mean Platelet Volume 11.2; Monocytes # (A) 0.5 k/uL (0-1.0); Monocytes % (A) 7 %; Neutrophils % (A) 80 %; Platelet Count 140 k/uL (150-450); RBC 3.92 m/uL (4.30-5.90); WBC 6.2 k/uL (3.8-10.6)
[2022-01-31] MEDS ORDERED: FUROSEMIDE 10 MG/ML 4 ML VIAL IV STA (22:52)
[2022-01-31 22:56] LABS: Appearance,Urine Clear (Clear); Bilirubin,Urine Negative (Negative); Blood,Urine Trace (Negative); Color,Urine Yellow; Glucose,Urine (UA) Negative (Negative); Hyaline Casts,Urine 15 /lpf (0-2); Ketones,Urine Negative (Negative); Leukocyte Esterase,Urine Negative (Negative); Mucus,Urine Rare /hpf; Nitrite,Urine Negative (Negative); PH, Urine 5.5 (5.0-8.0); Protein,Urine 1+ (Negative); RBC,Urine 7 /hpf (0-5); Specific Gravity,Urine 1.017 (1.001-1.035); Squamous Epithelial Cell,Urine <1 /hpf (0-4); WBC,Urine 2 /hpf (0-5)
[2022-01-31] MEDS ORDERED: NALOXONE 0.4 MG/ML 1 ML VIAL IV PRN (23:13)
[2022-01-31 23:30] LABS: Large Platelets Present
[2022-01-31 23:31] LABS: Poikilocytosis (M) Present; RBC Fragments Present
[2022-02-01] MEDS: HEPARIN SODIUM,PORCINE/PF 5,000 UNIT/0.5 ML SYRINGE SQ SCH ×5 (02:00→23:26)
[2022-02-01 04:57] LABS: Calcium 8.4 mg/dL (8.4-10.2); Potassium 3.7 mmol/L (3.5-5.1)
[2022-02-01 05:01] LABS: Anisocytosis Slight; Basophils % (A) 0 %; Eosinophils # (A) 0.3 k/uL (0-0.7); Eosinophils % (A) 5 %; HCT 32.9 % (39.0-53.0); HGB 10.1 gm/dL (13.0-17.5); Hypochromasia Marked; Lymphocytes # (A) 0.5 k/uL (1.0-4.8); Lymphocytes % (A) 9 %; MCH 27.9 pg (25.0-35.0); MCHC 30.7 g/dL (31.0-37.0); Mean Platelet Volume 11.4; Monocytes # (A) 0.7 k/uL (0-1.0); Monocytes % (A) 12 %; Neutrophils % (A) 72 %; Platelet Count 132 k/uL (150-450); RBC 3.62 m/uL (4.30-5.90); RDW 19.2 % (11.5-15.5); WBC 5.6 k/uL (3.8-10.6)
--- NOTE | 2022-02-01 08:32 | NM ---
EXAMINATION TYPE: NM pul vent and perfuse DATE OF EXAM: 02/01/2022 COMPARISON: 03/29/2021. Recent chest x-ray 01/31/2022 HISTORY: 71-year-old male shortness of breath, concern for PE. TECHNIQUE: Utilizing inhalation of 35.8 mCi Tc 99m DTPA aerosol and intravenous injection of 4.8 mCi of Tc 99m MAA, ventilation and perfusion images are acquired post injection in multiple projections. FINDINGS: Numerous scattered ventilation defects are present throughout. There is also clumping of tracer withi n the central airways that can be seen with COPD. Compared to 03/29/2021, two small matched right upper lobe perfusion defects remain unchanged. Other a reas of matched defects in the upper and mid lung seen previously are no longer apparent. No discrete mismatched defects seen. IMPRESSION: Low probability for pulmonary embolism. Multiple ventilation defects. Consider underlying airspace disease such as related to CHF or pneumoni a.
[2022-02-01] MEDS ORDERED: PIOGLITAZONE 15 MG TAB PO SCH (09:00)
[2022-02-01] MEDS: FUROSEMIDE 10 MG/ML 4 ML VIAL IV SCH ×2 (09:21→20:09)
[2022-02-01] MEDS: GLIMEPIRIDE 1 MG TAB PO SCH (09:22)
[2022-02-01] MEDS: ASPIRIN 81 MG PO SCH (09:26)
--- NOTE | 2022-02-01 09:49 | P.CRDCN ---
History of Present Illness History of present illness: HISTORY OF PRESENTING ILLNESS This is a pleasant 71-year-old male past medical history significant for coronary artery disease status post CABG, ischemic cardiomyopathy, hypertension, dyslipidemia, valvular heart disease with aortic stenosis, mitral regurgitation, type 2 diabetes, leukemia undergoing treatment with Dr. Alston. He follows in the office with Dr. Ngo. We have been asked to see in consultation for CHF and elevated troponin. Patient presents to the ER from Dr. Alston office secondary to hypoxia and concern for possible pulmonary embolism. Patient states he has chronic shortness of breath and dyspnea with activity for over 6 months. He states at home his oxygen saturations were 87-90%. He endorses shortness of breath and dyspnea on exertion but that is not worse. He denies any chest pain, palpitations, lightheadedness, dizziness, syncope or near syncope. He denies symptoms of orthopnea or PND. DIAGNOSTICS EKG reveals sinus rhythm, HR 70, right bundle branch block, T wave inversion in V2-V3, non-specific T wave abnormalities. Prior EKG in 2020 with similar findings VQ scan low probability for PE Chest xray mild chronic congestive heart failure present Laboratory reviewed, WBC 4.6, hemoglobin 10.1, platelets 132, sodium 135, potassium 3.7, BUN 2021, serum creatinine 2.2, d-dimer 2.4, INR 1.2, troponin 0.043, proBNP 18,300, COVID-19 negative, influenza negative Current home cardiac medications include metoprolol succinate 25 mg nightly, potassium chloride, Lasix 40 mg nightly, atorvastatin 80 mg nightly, aspirin 80 mg daily, Actos 15 mg daily most recent cardiac catheterization 03/30/2021 revealed occluded SVG to RCA, occluded SVG to left circumflex, severe triple vessel CAD, patent PARSONS to LAD. At that time due to anatomy medical therapy was advised. Echocardiogram 08/2021 revealed an EF of 40%, moderate tricuspid regurgitation with moderate mitral regurgitation, mild to moderate aortic stenosis REVIEW OF SYSTEMS At the time of my exam: CONSTITUTIONAL: Denies fever or chills. CARDIOVASCULAR: Denies chest pain,+shortness of breath, orthopnea, PND or palpitations. RESPIRATORY: Denies cough. GASTROINTESTINAL: Denies abdominal pain, diarrhea, constipation, nausea or vomiting. MUSCULOSKELETAL: Denies myalgias. NEUROLOGIC: Denies numbness, tingling, headacbe or weakness. ENDOCRINE: Denies fatigue, weight change, polydipsia or polyurina. GENITOURINARY: Denies burning, hematuria or urgency with micturation. HEMATOLOGIC: Denies history of anemia or bleeding. PHYSICAL EXAMINATION Vitals reviewed CONSTITUTIONAL: No apparent distress. HEENT: Head is normocephalic. Pupils are equal, round. Sclerae anicteric. Mucous membranes of the mouth are moist. No JVD. No carotid bruit. CHEST EXAMINATION: Lungs are diminished lower bases to auscultation. No chest wall tenderness is noted on palpation or with deep breathing. HEART EXAMINATION: Regular rate and rhythm. S1, S2 heard.Systolic murmur noted. No gallops or rub. ABDOMEN: Soft, nontender. Positive bowel sounds. EXTREMITIES: 2+ peripheral pulses, 2+ ankle bilateral lower extremity edema and no calf tenderness. NEUROLOGIC EXAMINATION: Patient is awake, alert and oriented x3. ASSESSMENT Acute on chronic heart failure with reduced ejection fraction Shortness of breath Elevated troponin, likely secondary to acute on chronic kidney disease and hypoxia Acute on chronic kidney disease Leukemia on active treatment Coronary artery disease status post CABG Ischemic cardiomyopathy Hypertension Dyslipidemia Valvular heart disease with aortic stenosis, mitral regurgitation Type 2 diabetes PLAN Obtain 2D echocardiogram and doppler study to assess cardiac structure and function. IV Lasix 40mg BID for 24 hours Continue aspirin, statin, metoprolol succinate Monitor renal function and electrolytes Monitor I/Os daily weights Further recommendations based on clinical course Hopefully discharge in next 24-48 hours Nurse practitioner note has been reviewed by physician. Signing provider agrees with the documented findings, assessment, and plan of care. Past Medical History Past Medical History: Coronary Artery Disease (CAD), Cancer, Diabetes Mellitus, Hyperlipidemia, Hypertension Additional Past Medical History / Comment(s): PVD carotid stenosis. The patient does have a 40 year pack per day smoking history but has not had any pulmonary symptoms. No inhalers, no oxygen at home. History of Any Multi-Drug Resistant Organisms: None Reported Past Surgical History: Coronary Bypass/CABG, Orthopedic Surgery Additional Past Surgical History / Comment(s): screws in right knee Past Anesthesia/Blood Transfusion Reactions: No Reported Reaction Past Psychological History: No Psychological Hx Reported Smoking Status: Former smoker Past Alcohol Use History: None Reported Past Drug Use History: None Reported - Past Family History Father Additional Family Medical History / Comment(s): of throat cancer Mother Additional Family Medical History / Comment(s): fell and broke hip then Medications and Allergies Home Medications Medication Instructions Recorded Confirmed Type Glimepiride [Amaryl] 1 mg PO DAILY 08/01/17 01/31/22 History Pioglitazone [Actos] 15 mg PO DAILY 08/01/17 01/31/22 History Atorvastatin Calcium [Lipitor] 80 mg PO HS 03/28/21 01/31/22 History Ferrous Sulfate [Iron (65 MG 325 mg PO DAILY 03/28/21 01/31/22 History Elemental)] allopurinoL [Zyloprim] 300 mg PO W/SUPPER 03/28/21 01/31/22 History calcitrioL [Calcitriol] 0.25 mcg PO SUWE 03/28/21 01/31/22 History Aspirin 81 mg PO DAILY 01/31/22 01/31/22 History Bosutinib [Bosulif] 300 mg PO W/SUPPER 01/31/22 01/31/22 History Furosemide [Lasix] 40 mg PO HS 01/31/22 01/31/22 History Metoprolol Succinate [Metoprolol 25 mg PO HS 01/31/22 01/31/22 History Succinate ER] Potassium Chloride ER [K-Dur 10] 10 meq PO DAILY 01/31/22 01/31/22 History Allergies Allergy/AdvReac Type Severity Reaction Status Date / Time albuterol [From DuoNeb] Allergy Chest Pain Verified 01/31/22 22:44 ipratropium [From DuoNeb] Allergy Chest Pain Verified 01/31/22 22:44 Physical Exam Vitals: Vital Signs Temp Pulse Pulse Resp BP BP Pulse Ox 02/01/22 08:00 97.6 F 61 18 144/71 99 02/01/22 06:27 66 16 126/71 97 02/01/22 04:01 64 20 109/68 95 02/01/22 00:53 70 23 144/71 97 01/31/22 23:02 61 23 127/63 95 01/31/22 22:30 67 20 148/77 97 01/31/22 19:41 64 25 H 123/62 99 01/31/22 19:22 98 F 73 26 H 114/57 87 L Intake and Output 01/31/22 02/01/22 02/01/22 22:59 06:59 14:59 Other: Weight 78.925 kg Results 02/01/22 03:17 02/01/22 03:17 Cardiac Enzymes 01/31/22 01/31/22 01/31/22 Range/Units 20:34 20:34 23:56 AST 41 (17-59) U/L Troponin I 0.040 H* 0.045 H* (0.000-0.034) ng/mL 02/01/22 Range/Units 03:17 AST (17-59) U/L Troponin I 0.049 H* (0.000-0.034) ng/mL Coagulation 01/31/22 Range/Units 20:34 PT 12.8 H (9.0-12.0) sec APTT 27.5 (22.0-30.0) sec CBC 01/31/22 02/01/22 Range/Units 20:34 03:17 WBC 6.2 5.6 (3.8-10.6) k/uL RBC 3.92 L 3.62 L (4.30-5.90) m/uL Hgb 11.0 L 10.1 L (13.0-17.5) gm/dL Hct 35.6 L 32.9 L (39.0-53.0) % Plt Count 140 L 132 L (150-450) k/uL Comprehensive Metabolic Panel 01/31/22 02/01/22 Range/Units 20:34 03:17 Sodium 135 L 135 L (137-145) mmol/L Potassium 3.8 3.7 (3.5-5.1) mmol/L Chloride 103 106 (98-107) mmol/L Carbon Dioxide 23 21 L (22-30) mmol/L BUN 32 H 32 H (9-20) mg/dL Creatinine 2.28 H 2.20 H (0.66-1.25) mg/dL Glucose 132 H 61 L (74-99) mg/dL Calcium 8.7 8.4 (8.4-10.2) mg/dL AST 41 (17-59) U/L ALT 18 (4-49) U/L Alkaline Phosphatase 204 H (38-126) U/L Total Protein 6.9 (6.3-8.2) g/dL Albumin 3.8 (3.5-5.0) g/dL Current Medications Generic Name Dose Route Start Last Admin Trade Name Freq PRN Reason Stop Dose Admin Allopurinol 300 mg 02/01/22 17:30 Allopurinol 300 Mg Tab PO W/SUPPER TAQUERIA Aspirin 81 mg 02/01/22 09:00 Aspirin 81 Mg PO DAILY TAQUERIA Atorvastatin Calcium 80 mg 02/01/22 21:00 Atorvastatin 80 Mg Tab PO HS TAQUERIA Furosemide 40 mg 02/01/22 21:00 Furosemide 40 Mg Tab PO HS TAQUERIA Glimepiride 1 mg 02/01/22 09:00 Glimepiride 1 Mg Tab PO DAILY TAQU[facility]IA Heparin Sodium (Porcine) 5,000 unit 02/01/22 00:00 02/01/22 02:00 Heparin Sodium,Porcine/Pf 5,000 Unit/0.5 Ml Syringe SQ 5,000 unit Q8HR TAQUERIA Administration Metoprolol Succinate 25 mg 02/01/22 21:00 Metoprolol Succinate (Er) 25 Mg Tab.Er.24h PO HS TAQUERIA Naloxone HCl 0.2 mg 01/31/22 23:13 Naloxone 0.4 Mg/Ml 1 Ml Vial IV Q2M PRN Opioid Reversal Non-Formulary Medication 300 mg 02/01/22 17:30 Bosutinib [Bosulif] PO W/SUPPER TAQUERIA Pioglitazone HCl 15 mg 02/01/22 09:00 Pioglitazone 15 Mg Tab PO DAILY [facility] Intake and Output 01/31/22 02/01/22 02/01/22 22:59 06:59 14:59 Other: Weight 78.925 kg 02/01/22 03:17 02/01/22 03:17
--- NOTE | 2022-02-01 10:03 | P.HPIM ---
History of Present Illness This is a pleasant 71 years old male with past medical history of Coronary Artery Disease r, Diabetes Mellitus, Hyperlipidemia, Hypertension, PVD carotid stenosis. Coronary Bypass/CABG, Patient states that his been diagnosed with leukemia about 1.5 years ago, since then his been having generalized weakness and dyspnea especially with exertion where he has to walk for 20-30 feet before he got completely exhausted, but this is chronic as per patient without recent worsening. He denies chest pain or coughing. No abdominal pain or vomiting. No headache or dizziness. No we akness or numbness. No urinary complaints. He wants to see his oncologist Dr. Alston for regular follow-up, patient says that his oxygen in the office was checked and it was submitted 80s compared to normal when he was at home therefore he was referred to the hospital by Josefina from Dr. Alston office. Currently he is lying comfortable in bed, no dyspnea, no coughing or other respiratory symptoms or chest pain. No smoking, alcohol or illicit drugs. Vitals looks stable, patient is tachypneic with a rate 20-25. CBC showing only mild anemia and thrombocytopenia at 11 and 140 respectively INR 1.2, d-dimer elevated 2.4. Creatinine is elevated at 2.2, baseline 1.3-1.7 sodium 135, Troponin is elevated at 0.04.ProBNP is 18,300 Urine analysis is not suspicious of infection. Showing 1+ protein Coronavirus and influenza virus not detected Chest x-ray: There is some evidence of mild chronic congestive heart failure that is similar to old exam EKG showing normal sinus rhythm at 70 on admission patient was started on aspirin and Lasix 1 Loop Drier Operator and delinquent notice machine operator are consulted. Ventilation and perfusion scan requested as well as echocardiogram Ventilation and perfusion scan : Probability for pulmonary embolism. Multiple ventilation deface consider underlying airspace disease such as CHF or pneumonia Review of Systems Review of systems CONSTITUTIONAL: No fever, no malaise, no fatigue. HEENT: No recent visual problems or hearing problems. Denied any sore throat. CARDIOVASCULAR: No orthopnea, PND, no palpitations, no syncope. PULMONARY: No chest wall tenderness, no cough, no hemoptysis. GASTROINTESTINAL: No diarrhea, no nausea, no vomiting, no abdominal pain. Normoactive bowel sounds. NEUROLOGICAL: No headaches, no weakness, no numbness. HEMATOLOGICAL: Denies any bleeding or petechiae. GENITOURINARY: Denies any burning micturition, frequency, or urgency. MUSCULOSKELETAL/RHEUMATOLOGICAL: Denies any joint pain, swelling, or any muscle pain. ENDOCRINE: Denies any polyuria or polydipsia. Past Medical History Past Medical History: Coronary Artery Disease (CAD), Cancer, Diabetes Mellitus, Hyperlipidemia, Hypertension Additional Past Medical History / Comment(s): PVD carotid stenosis. The patient does have a 40 year pack per day smoking history but has not had any pulmonary symptoms. No inhalers, no oxygen at home. History of Any Multi-Drug Resistant Organisms: None Reported Past Surgical History: Coronary Bypass/CABG, Orthopedic Surgery Additional Past Surgical History / Comment(s): screws in right knee Past Anesthesia/Blood Transfusion Reactions: No Reported Reaction Past Psychological History: No Psychological Hx Reported Smoking Status: Former smoker Past Alcohol Use History: None Reported Past Drug Use History: None Reported - Past Family History Father Additional Family Medical History / Comment(s): of throat cancer Mother Additional Family Medical History / Comment(s): fell and broke hip then Medications and Allergies Home Medications Medication Instructions Recorded Confirmed Type Glimepiride [Amaryl] 1 mg PO DAILY 08/01/17 01/31/22 History Pioglitazone [Actos] 15 mg PO DAILY 08/01/17 01/31/22 History Atorvastatin Calcium [Lipitor] 80 mg PO HS 03/28/21 01/31/22 History Ferrous Sulfate [Iron (65 MG 325 mg PO DAILY 03/28/21 01/31/22 History Elemental)] allopurinoL [Zyloprim] 300 mg PO W/SUPPER 03/28/21 01/31/22 History calcitrioL [Calcitriol] 0.25 mcg PO SUWE 03/28/21 01/31/22 History Aspirin 81 mg PO DAILY 01/31/22 01/31/22 History Bosutinib [Bosulif] 300 mg PO W/SUPPER 01/31/22 01/31/22 History Furosemide [Lasix] 40 mg PO HS 01/31/22 01/31/22 History Metoprolol Succinate [Metoprolol 25 mg PO HS 01/31/22 01/31/22 History Succinate ER] Potassium Chloride ER [K-Dur 10] 10 meq PO DAILY 01/31/22 01/31/22 History Allergies Allergy/AdvReac Type Severity Reaction Status Date / Time albuterol [From DuoNeb] Allergy Chest Pain Verified 01/31/22 22:44 ipratropium [From DuoNeb] Allergy Chest Pain Verified 01/31/22 22:44 Physical Exam Vitals: Vital Signs Temp Pulse Resp BP Pulse Ox 02/01/22 06:27 66 16 126/71 97 02/01/22 04:01 64 20 109/68 95 02/01/22 00:53 70 23 144/71 97 01/31/22 23:02 61 23 127/63 95 01/31/22 22:30 67 20 148/77 97 01/31/22 19:41 64 25 H 123/62 99 01/31/22 19:22 98 F 73 26 H 114/57 87 L Intake and Output 01/31/22 01/31/22 02/01/22 14:59 22:59 06:59 Other: Weight 78.925 kg GENERAL: The patient is alert and oriented x3, not in any acute distress. Well developed, well nourished. HEENT: Pupils are round and equally reacting to light. EOMI. No scleral icterus. No conjunctival pallor. Normocephalic, atraumatic. No pharyngeal erythema. No thyromegaly. CARDIOVASCULAR: S1 and S2 present. No murmurs, rubs, or gallops. -PULMONARY: Chest is clear to auscultation, bilateral basal crepitation ABDOMEN: Soft, nontender, nondistended, normoactive bowel sounds. No palpable organomegaly. MUSCULOSKELETAL: No joint swelling or deformity. -EXTREMITIES: No cyanosis, clubbing, . Bilateral thickened like edema NEUROLOGICAL: Gross neurological examination did not reveal any focal deficits. SKIN: No rashes. no petechiae. Results CBC & Chem 7: 02/01/22 03:17 02/01/22 03:17 Labs: Abnormal Lab Results - Last 24 Hours (Table) 01/31/22 01/31/22 01/31/22 Range/Units 20:34 20:34 20:34 RBC 3.92 L (4.30-5.90) m/uL Hgb 11.0 L (13.0-17.5) gm/dL Hct 35.6 L (39.0-53.0) % MCHC (31.0-37.0) g/dL RDW 19.0 H (11.5-15.5) % Plt Count 140 L (150-450) k/uL Lymphocytes # 0.4 L (1.0-4.8) k/uL PT 12.8 H (9.0-12.0) sec INR 1.2 H (<1.2) D-Dimer (<0.60) mg/L FEU Sodium 135 L (137-145) mmol/L Carbon Dioxide (22-30) mmol/L BUN 32 H (9-20) mg/dL Creatinine 2.28 H (0.66-1.25) mg/dL Glucose 132 H (74-99) mg/dL Alkaline Phosphatase 204 H (38-126) U/L Troponin I (0.000-0.034) ng/mL Urine Protein (Negative) Urine Blood (Negative) Urine RBC (0-5) /hpf Hyaline Casts (0-2) /lpf Urine Mucus (None) /hpf 01/31/22 01/31/22 01/31/22 Range/Units 20:34 21:57 22:33 RBC (4.30-5.90) m/uL Hgb (13.0-17.5) gm/dL Hct (39.0-53.0) % MCHC (31.0-37.0) g/dL RDW (11.5-15.5) % Plt Count (150-450) k/uL Lymphocytes # (1.0-4.8) k/uL PT (9.0-12.0) sec INR (<1.2) D-Dimer 2.41 H (<0.60) mg/L FEU Sodium (137-145) mmol/L Carbon Dioxide (22-30) mmol/L BUN (9-20) mg/dL Creatinine (0.66-1.25) mg/dL Glucose (74-99) mg/dL Alkaline Phosphatase (38-126) U/L Troponin I 0.040 H* (0.000-0.034) ng/mL Urine Protein 1+ H (Negative) Urine Blood Trace H (Negative) Urine RBC 7 H (0-5) /hpf Hyaline Casts 15 H (0-2) /lpf Urine Mucus Rare H (None) /hpf 01/31/22 02/01/22 02/01/22 Range/Units 23:56 03:17 03:17 RBC 3.62 L (4.30-5.90) m/uL Hgb 10.1 L (13.0-17.5) gm/dL Hct 32.9 L (39.0-53.0) % MCHC 30.7 L (31.0-37.0) g/dL RDW 19.2 H (11.5-15.5) % Plt Count 132 L (150-450) k/uL Lymphocytes # 0.5 L (1.0-4.8) k/uL PT (9.0-12.0) sec INR (<1.2) D-Dimer (<0.60) mg/L FEU Sodium (137-145) mmol/L Carbon Dioxide (22-30) mmol/L BUN (9-20) mg/dL Creatinine (0.66-1.25) mg/dL Glucose (74-99) mg/dL Alkaline Phosphatase (38-126) U/L Troponin I 0.045 H* 0.049 H* (0.000-0.034) ng/mL Urine Protein (Negative) Urine Blood (Negative) Urine RBC (0-5) /hpf Hyaline Casts (0-2) /lpf Urine Mucus (None) /hpf 02/01/22 Range/Units 03:17 RBC (4.30-5.90) m/uL Hgb (13.0-17.5) gm/dL Hct (39.0-53.0) % MCHC (31.0-37.0) g/dL RDW (11.5-15.5) % Plt Count (150-450) k/uL Lymphocytes # (1.0-4.8) k/uL PT (9.0-12.0) sec INR (<1.2) D-Dimer (<0.60) mg/L FEU Sodium 135 L (137-145) mmol/L Carbon Dioxide 21 L (22-30) mmol/L BUN 32 H (9-20) mg/dL Creatinine 2.20 H (0.66-1.25) mg/dL Glucose 61 L (74-99) mg/dL Alkaline Phosphatase (38-126) U/L Troponin I (0.000-0.034) ng/mL Urine Protein (Negative) Urine Blood (Negative) Urine RBC (0-5) /hpf Hyaline Casts (0-2) /lpf Urine Mucus (None) /hpf Assessment and Plan Assessment: Acute dyspnea, most likely secondary to acute CHF Elevated d-dimer, VQ scan is low probability for PE Acute and chronic congestive heart failure, exacerbated by Actos Elevated troponin Acute kidney injury on chronic kidney disease History of coronary artery disease status post CABG Hypertension Hyperlipidemia Peripheral vascular disease and history of carotid stenosis Plan: This is a pleasant 71 years old male who presents with dyspnea and elevated d- dimer Follow-up ventilation perfusion scan follow-up echocardiogram discontinue Actos, informed the patient not to resume outpatient as it worsens heart failure Cardiology and collection systems worker oncologist team were consulted we will defer the ant icoagulation management to the collection systems worker team Check ultrasound of the leg Labs and medication were reviewed.. Continue same treatment. Continue with symptomatic treatment. Resume home medication. Monitor lytes and vitals. DVT and GI prophylaxis. Further recommendations as per clinical course of the patient DVT prophylaxis: Subcutaneous heparin GI Prophylaxis: Pepcid PT/OT: Pending Prognosis is guarded
--- NOTE | 2022-02-01 11:04 | US ---
EXAMINATION TYPE: US venous doppler duplex LE DATE OF EXAM: 02/01/2022 10:46 AM COMPARISON: NONE CLINICAL HISTORY: 71-year-old male leg swelling. Bilat. leg edema SIDE PERFORMED: bilateral TECHNIQUE: The lower extremity deep venous system is examined utilizing real time linear array sonog patricia with graded compression, doppler sonography and color-flow sonography. FINDINGS: VESSELS IMAGED: Common Femoral Vein Deep Femoral Vein Greater Saphenous Vein * Femoral Vein Popliteal Vein Small Saphenous Vein * Proximal Calf Veins (* superficial vessels) Right Leg: no evidence of DVT as visualized Left Leg: no evidence of DVT as visualized IMPRESSION: No evidence for DVT within the bilateral lower extremities imaged from the groin to the upper calves.
[2022-02-01 11:26] LABS: Glucose,Whole Blood 68 mg/dL (70-110)
[2022-02-01] MEDS: INSULIN ASPART (NovoLOG) 100 UNIT/ML VIAL SQ SCH ×3 (13:40→20:22)
[2022-02-01 16:39] LABS: Glucose,Whole Blood 78 mg/dL (70-110)
--- NOTE | 2022-02-01 17:09 | P.CONS ---
History of Present Illness - Reason for Consult Consult date: 02/01/22 CML Requesting physician: Ken Walsh - Chief Complaint hypoxia - History of Present Illness Mister Greene is a very pleasant 71-year-old male patient who is following with Dr. Alston for a history of CML. His labs starting showing abnormalities in August 2019. His counts were monitored and in February 2020 peripheral smear confirmed presence of a left shift with concern for myeloproliferative disorder. Extensive workup performed did show BCR/ABL (P210 [id number]%, B2A2-0.02%). He started on Sprycel 04/29/20. He did well for about 5 months, started having increased shortness of breath in September 2020. He was found to have a right sided pleural effusion. Thoracentesis 10/01/20 revealed no evidence of malignancy. Sprycel was discontinued, patient started Gleevec 10/21/20. he continued on Gleevec until 04/05/21, presented with complaints of persistent nausea and vomiting. Gleevec was held. He was admitted to the hospital shortly after with palpitations, shortness of breath and bilateral lower extremity swelling. He was found to be in heart failure, symptoms improved with diuresis. Was concerns of toxicity from albuterol. He was rechallenged with Gleevec and did well until August 2021. He was evaluated by Cardiology and Nephrology and states that he was told that they were unable to find a cardiac or renal cause for his worsening. Therefore Gleevec was held at his visit on 10/07/21, with resolution of his symptoms. He was switched to Bosulif, started on 12/10/21. 11/26 BCR-ABL quant was 0.04%, Hgb was in the 9 range. patient ambulating with a cane, wheelchair for longer distances. He presented to the office 01/31/22 for routine follow-up on bosulif. His O2 saturation was 82% on room air, increased to 90% on 2 L. He was sent to the [facility] room for hypoxia. VQ scan had a low probability for PE, chest x-ray chronic congestive heart failure suspected. Serial troponins were slightly elevated. The patient's creatinine is near baseline at 2. Hemoglobin stable at 10.1, platelets 132,000 WBC 5.6. When seen patient is sitting up at the bedside in the ICU, he is on 2 L O2, he denies any current fevers, chest pain, palpitations, he states he was up in the chair, he is sitting up at the bedside to eat dinner, denies nausea, vomiting, abdominal pain or cramping, acute changes in bowel or bladder habits. Review of Systems 10 point review of systems is negative except as stated in HPI Past Medical History Past Medical History: Coronary Artery Disease (CAD), Cancer, Diabetes Mellitus, Hyperlipidemia, Hypertension, Renal Disease Additional Past Medical History / Comment(s): PVD carotid stenosis. The patient does have a 40 year pack per day smoking history but has not had any pulmonary symptoms. No inhalers, no oxygen at home. History of Any Multi-Drug Resistant Organisms: None Reported Past Surgical History: Coronary Bypass/CABG, Orthopedic Surgery Additional Past Surgical History / Comment(s): screws in right knee Past Anesthesia/Blood Transfusion Reactions: No Reported Reaction Past Psychological History: No Psychological Hx Reported Smoking Status: Former smoker Past Alcohol Use History: None Reported Past Drug Use History: None Reported - Past Family History Father Additional Family Medical History / Comment(s): of throat cancer Mother Additional Family Medical History / Comment(s): fell and broke hip then Medications and Allergies Home Medications Medication Instructions Recorded Confirmed Type Glimepiride [Amaryl] 1 mg PO DAILY 08/01/17 01/31/22 History Pioglitazone [Actos] 15 mg PO DAILY 08/01/17 01/31/22 History Atorvastatin Calcium [Lipitor] 80 mg PO HS 03/28/21 01/31/22 History Ferrous Sulfate [Iron (65 MG 325 mg PO DAILY 03/28/21 01/31/22 History Elemental)] allopurinoL [Zyloprim] 300 mg PO W/SUPPER 03/28/21 01/31/22 History calcitrioL [Calcitriol] 0.25 mcg PO SUWE 03/28/21 01/31/22 History Aspirin 81 mg PO DAILY 01/31/22 01/31/22 History Bosutinib [Bosulif] 300 mg PO W/SUPPER 01/31/22 01/31/22 History Furosemide [Lasix] 40 mg PO HS 01/31/22 01/31/22 History Metoprolol Succinate [Metoprolol 25 mg PO HS 01/31/22 01/31/22 History Succinate ER] Potassium Chloride ER [K-Dur 10] 10 meq PO DAILY 01/31/22 01/31/22 History Allergies Allergy/AdvReac Type Severity Reaction Status Date / Time albuterol [From DuoNeb] Allergy Chest Pain Verified 01/31/22 22:44 ipratropium [From DuoNeb] Allergy Chest Pain Verified 01/31/22 22:44 Physical Exam Vitals: Vital Signs Temp Pulse Pulse Resp BP BP Pulse Ox 02/01/22 15:03 95 02/01/22 14:00 20 02/01/22 12:00 98.1 F 65 20 112/50 96 02/01/22 10:39 60 13 130/61 96 02/01/22 08:00 97.6 F 61 18 144/71 99 02/01/22 06:27 66 16 126/71 97 02/01/22 04:01 64 20 109/68 95 02/01/22 00:53 70 23 144/71 97 01/31/22 23:02 61 23 127/63 95 01/31/22 22:30 67 20 148/77 97 01/31/22 19:41 64 25 H 123/62 99 01/31/22 19:22 98 F 73 26 H 114/57 87 L Intake and Output 02/01/22 02/01/22 02/01/22 06:59 14:59 22:59 Output Total 350 Balance -350 Output: Urine 350 Other: Voiding Method Urinal Weight 78.925 kg - Constitutional General appearance: cooperative, no acute distress, thin - EENT Eyes: anicteric sclerae, EOMI, poor dentition ENT: hearing grossly normal, normal oropharynx - Neck Neck: no lymphadenopathy - Respiratory Respiratory: bilateral: diminished - Cardiovascular Rhythm: regular Heart sounds: normal: S1, S2 Abnormal Heart Sounds: no systolic murmur, no diastolic murmur, no rub, no S3 Gallop, no S4 Gallop, no click, no other leg Peripheral Edema: bilateral: Trace - Gastrointestinal General gastrointestinal: no absent bowel sounds, no decreased bowel sounds, distended, no hepatomegaly, no hyperactive bowel sounds, normal bowel sounds, no organomegaly, no rigid, no scaphoid, soft, splenomegaly, no tenderness, no umbilical hernia, no ventral hernia - Neurologic Neurologic: CNII-XII intact - Musculoskeletal Musculoskeletal: generalized weakness - Psychiatric Psychiatric: A&O x's 3, appropriate affect, intact judgment & insight Results CBC & Chem 7: 02/01/22 03:17 02/01/22 03:17 Labs: Abnormal Lab Results - Last 24 Hours (Table) 01/31/22 01/31/22 01/31/22 Range/Units 20:34 20:34 20:34 RBC 3.92 L (4.30-5.90) m/uL Hgb 11.0 L (13.0-17.5) gm/dL Hct 35.6 L (39.0-53.0) % MCHC (31.0-37.0) g/dL RDW 19.0 H (11.5-15.5) % Plt Count 140 L (150-450) k/uL Lymphocytes # 0.4 L (1.0-4.8) k/uL PT 12.8 H (9.0-12.0) sec INR 1.2 H (<1.2) D-Dimer (<0.60) mg/L FEU Sodium 135 L (137-145) mmol/L Carbon Dioxide (22-30) mmol/L BUN 32 H (9-20) mg/dL Creatinine 2.28 H (0.66-1.25) mg/dL Glucose 132 H (74-99) mg/dL POC Glucose (mg/dL) (70-110) mg/dL Alkaline Phosphatase 204 H (38-126) U/L Troponin I (0.000-0.034) ng/mL Urine Protein (Negative) Urine Blood (Negative) Urine RBC (0-5) /hpf Hyaline Casts (0-2) /lpf Urine Mucus (None) /hpf 01/31/22 01/31/22 01/31/22 Range/Units 20:34 21:57 22:33 RBC (4.30-5.90) m/uL Hgb (13.0-17.5) gm/dL Hct (39.0-53.0) % MCHC (31.0-37.0) g/dL RDW (11.5-15.5) % Plt Count (150-450) k/uL Lymphocytes # (1.0-4.8) k/uL PT (9.0-12.0) sec INR (<1.2) D-Dimer 2.41 H (<0.60) mg/L FEU Sodium (137-145) mmol/L Carbon Dioxide (22-30) mmol/L BUN (9-20) mg/dL Creatinine (0.66-1.25) mg/dL Glucose (74-99) mg/dL POC Glucose (mg/dL) (70-110) mg/dL Alkaline Phosphatase (38-126) U/L Troponin I 0.040 H* (0.000-0.034) ng/mL Urine Protein 1+ H (Negative) Urine Blood Trace H (Negative) Urine RBC 7 H (0-5) /hpf Hyaline Casts 15 H (0-2) /lpf Urine Mucus Rare H (None) /hpf 01/31/22 02/01/22 02/01/22 Range/Units 23:56 03:17 03:17 RBC 3.62 L (4.30-5.90) m/uL Hgb 10.1 L (13.0-17.5) gm/dL Hct 32.9 L (39.0-53.0) % MCHC 30.7 L (31.0-37.0) g/dL RDW 19.2 H (11.5-15.5) % Plt Count 132 L (150-450) k/uL Lymphocytes # 0.5 L (1.0-4.8) k/uL PT (9.0-12.0) sec INR (<1.2) D-Dimer (<0.60) mg/L FEU Sodium (137-145) mmol/L Carbon Dioxide (22-30) mmol/L BUN (9-20) mg/dL Creatinine (0.66-1.25) mg/dL Glucose (74-99) mg/dL POC Glucose (mg/dL) (70-110) mg/dL Alkaline Phosphatase (38-126) U/L Troponin I 0.045 H* 0.049 H* (0.000-0.034) ng/mL Urine Protein (Negative) Urine Blood (Negative) Urine RBC (0-5) /hpf Hyaline Casts (0-2) /lpf Urine Mucus (None) /hpf 02/01/22 02/01/22 Range/Units 03:17 11:25 RBC (4.30-5.90) m/uL Hgb (13.0-17.5) gm/dL Hct (39.0-53.0) % MCHC (31.0-37.0) g/dL RDW (11.5-15.5) % Plt Count (150-450) k/uL Lymphocytes # (1.0-4.8) k/uL PT (9.0-12.0) sec INR (<1.2) D-Dimer (<0.60) mg/L FEU Sodium 135 L (137-145) mmol/L Carbon Dioxide 21 L (22-30) mmol/L BUN 32 H (9-20) mg/dL Creatinine 2.20 H (0.66-1.25) mg/dL Glucose 61 L (74-99) mg/dL POC Glucose (mg/dL) 68 L (70-110) mg/dL Alkaline Phosphatase (38-126) U/L Troponin I (0.000-0.034) ng/mL Urine Protein (Negative) Urine Blood (Negative) Urine RBC (0-5) /hpf Hyaline Casts (0-2) /lpf Urine Mucus (None) /hpf Comments: V/Q scan report reviewed bilateral lower extremity Doppler report reviewed Chest x-ray: report reviewed Assessment and Plan (1) Dyspnea Current Visit: Yes Status: Acute Priority: High Code(s): R06.00 - DYSPNEA, UNSPECIFIED SNOMED Code(s): 054498157 (2) CML (chronic myeloid leukemia) Current Visit: Yes Status: Chronic Priority: Medium Code(s): C92.10 - CHRONIC MYELOID LEUK, BCR/ABL-POSITIVE, NOT ACHIEVE REMIS SNOMED Code(s): 53281571 Plan: Patient admitted for shortness of breath. Noted to have an elevated d-dimer. V/Q, low probability for PE, bilateral lower extremity Doppler negative for DVT. Elevated troponins. chest x-ray suggestive of mild CHF. Cardiology has seen the patient, plans for echo, pending results and their impression and recommendations. Creatinine slightly worse than patient's baseline. Patient is being hydrated gently. CBC stable for patient. No acute interventions from Hem/Onc. Hold Bosulif for now as there is side effect of fluid retention.
--- NOTE | 2022-02-01 17:11 | CA ---
Transthoracic Echo Report Name: Pk Greene Age: 71 Gender: M : 1950 Exam Date: 02/01/2022 11:07 Exam Location: [facility] Ht (in): 60 Wt (lb): 170 Ordering Physician: Ken Walsh MD Attending/Referring Phys: Viticulture Teacher Tamara Hirsch RDCS Procedure CPT: Indications: heart failure, dyspnea Cardiac Hx: Technical Quality: Good Contrast 1: Total Dose (mL): Contrast 2: Total Dose (mL): MEASUREMENTS (Male / Female) Normal Values 2D ECHO LV Diastolic Diameter PLAX 5.1 cm 4.2 - 5.9 / 3.9 - 5.3 cm LV Systolic Diameter PLAX 4.4 cm IVS Diastolic Thickness 1.0 cm 0.6 - 1.0 / 0.6 - 0.9 cm LVPW Diastolic Thickness 1.3 cm 0.6 - 1.0 / 0.6 - 0.9 cm LV Relative Wall Thickness 0.5 RV Internal Dim ED PLAX 3.9 cm LA Systolic Diameter LX 4.2 cm 3.0 - 4.0 / 2.7 - 3.8 cm M-MODE MV E Point Septal Separation 1.9 cm DOPPLER AV Peak Velocity 165.5 cm/s AV Peak Gradient 11.0 mmHg MV Area PHT 3.2 cm??? Mitral E Point Velocity 58.0 cm/s Mitral A Point Velocity 93.9 cm/s Mitral E to A Ratio 0.6 MV Deceleration Time 233.8 ms TR Peak Velocity 339.0 cm/s TR Peak Gradient 46.0 mmHg Right Ventricular Systolic Press 50.3 mmHg FINDINGS Left Ventricle Left ventricular ejection fraction is estimated at 40-45%. Inferior basal hypokinesis. Right Ventricle Severe right ventricular dilatation. Moderate to severe pulmonary hypertension. Right Atrium Normal right atrial size. Left Atrium Mildly increased left atrial diameter. Mitral Valve Mild mitral regurgitation. Aortic Valve Trileaflet aortic valve. Tricuspid Valve Structurally normal tricuspid valve. Moderate tricuspid regurgitation. Pulmonic Valve Structurally normal pulmonic valve. Pericardium Echo free space anterior to the right ventricle likely represents a fat pad. Aorta Normal size aortic root and proximal ascending aorta. CONCLUSIONS Moderate LV systolic dysfunction with an ejection fraction of 40-45%. Hypokinetic inferior wall suggestive of prior myocardial infarction. Moderate tricuspid regurgitation. Moderate to severe pulmonary hypertension Previewed by: Dr. Kamar Mendes MD (Electronically Signed) Final Date: 01 February 2022 17:10
[2022-02-01] MEDS: allopurinoL 300 MG TAB PO SCH (17:26)
[2022-02-01] MEDS ORDERED: BOSUTINIB 100 MG PO SCH (17:30)
[2022-02-01] MEDS: METOPROLOL SUCCINATE (ER) 25 MG TAB.ER.24H PO SCH (20:09)
[2022-02-01] MEDS: ATORVASTATIN 80 MG TAB PO SCH (20:09)
[2022-02-01 20:19] LABS: Glucose,Whole Blood 82 mg/dL (70-110)
[2022-02-01] MEDS ORDERED: FUROSEMIDE 40 MG TAB PO SCH (21:00)
[2022-02-01] MEDS: FAMOTIDINE 20 MG/2 ML VIAL IV SCH (22:13)
--- NOTE | 2022-02-02 07:53 | P.PN ---
Subjective Progress Note Date: 02/02/22 PROGRESS NOTE The patient is a 71-year-old male with a known history of coronary disease, valvular disease history of leukemia who is receiving chemotherapy and presented with evidence of hypoxemia. His ventilation/perfusion scan showed low probability of pulmonary embolism. He has no evidence of DVT by ultrasound. His echocardiogram showed an ejection fraction of 40-45% with moderate tricuspid regurgitation and moderate to severe pulmonary hypertension. He's feeling well this morning, continues to be in sinus mechanism, denies any chest discomfort, dizziness or palpitations. Hemodynamically he is stable. He has been maintained on IV diuretics. He had mild elevation of the troponin on prese ntation and elevation of his NT proBNP. He has no evidence of arrhythmia. Medications: Aspirin 81 mg daily, Lipitor 80 mg daily, Lasix 40 mg IV every 12 hours, metoprolol succinate 25 mg daily PHYSICAL EXAMINATION: Blood pressure 124/57 heart rate 62 LUNGS: Clear to auscultation HEART: Regular rate and rhythm, S1, S2. No S3. systolic murmur at the base ABDOMEN: Soft, nontender, no organomegaly EXTREMETIES: 1+ edema on the left LAB: Pending IMPRESSION: 1. Symptoms of dyspnea with evidence of CHF with impaired systolic function 2. Ischemic cardiomyopathy 3. History of CAD and valvular disease 4. Leukemia 5. Chronic kidney disease 6. Mild elevation of the troponin most likely secondary to the heart failure and chronic kidney disease, no evidence of acute coronary syndrome. PLAN: 1. Continue IV diuretics for 24 hours 2. Follow renal functions 3. Increase physical activity 4. Depending on his progress further recommendations will be made. Objective - Vital Signs Vital signs: Vital Signs Temp 97.8 F 02/02/22 04:00 Pulse 62 02/02/22 04:00 Resp 20 02/02/22 04:00 BP 124/57 02/02/22 04:00 Pulse Ox 94 L 02/02/22 07:37 FiO2 Intake & Output 02/01/22 02/02/22 02/02/22 18:59 06:59 18:59 Intake Total 250 Output Total 350 750 Balance -350 -500 Intake: Oral 250 Output: Urine 350 750 Other: Voiding Method Urinal Urinal - Labs CBC & Chem 7: 02/01/22 03:17 02/01/22 03:17 Labs: Abnormal Lab Results - Last 24 Hours (Table) 02/01/22 Range/Units 11:25 POC Glucose (mg/dL) 68 L (70-110) mg/dL
[2022-02-02 08:05] LABS: Glucose,Whole Blood 49 mg/dL (70-110)
[2022-02-02 08:05] LABS: Glucose,Whole Blood 48 mg/dL (70-110)
[2022-02-02 08:23] LABS: Calcium 8.4 mg/dL (8.4-10.2); Potassium 3.5 mmol/L (3.5-5.1)
[2022-02-02] MEDS: HEPARIN SODIUM,PORCINE/PF 5,000 UNIT/0.5 ML SYRINGE SQ SCH ×3 (08:27→20:17)
[2022-02-02] MEDS: FERROUS SULFATE 325 MG TAB PO SCH (08:28)
[2022-02-02] MEDS: FUROSEMIDE 10 MG/ML 4 ML VIAL IV SCH ×2 (08:28→20:16)
[2022-02-02] MEDS: FAMOTIDINE 20 MG/2 ML VIAL IV SCH (08:28)
[2022-02-02] MEDS: ASPIRIN 81 MG PO SCH (08:28)
[2022-02-02] MEDS ORDERED: DEXTROSE 50% SYRINGE 50 ML IVP ONE (08:31)
[2022-02-02 08:32] LABS: Glucose,Whole Blood 58 mg/dL (70-110)
[2022-02-02] MEDS ORDERED: DEXTROSE 50% SYRINGE 50 ML IVP STA (08:33)
[2022-02-02 09:03] LABS: Glucose,Whole Blood 126 mg/dL (70-110)
[2022-02-02] MEDS: INSULIN ASPART (NovoLOG) 100 UNIT/ML VIAL SQ SCH ×4 (09:37→20:17)
[2022-02-02] MEDS: GLIMEPIRIDE 1 MG TAB PO SCH (09:38)
[2022-02-02 11:27] LABS: Glucose,Whole Blood 120 mg/dL (70-110)
--- NOTE | 2022-02-02 12:42 | P.PN ---
Subjective This is a pleasant 71 years old male with past medical history of Coronary Artery Disease r, Diabetes Mellitus, Hyperlipidemia, Hypertension, PVD carotid stenosis. Coronary Bypass/CABG, Patient states that his been diagnosed with leukemia about 1.5 years ago, since then his been having generalized weakness and dyspnea especially with exertion where he has to walk for 20-30 feet before he got completely exhausted, but this is chronic as per patient without recent worsening. He denies chest pain or coughing. No abdominal pain or vomiting. No headache or dizziness. No weakness or numbness. No urinary complaints. He wants to see his oncologist Dr. Alston for regular follow-up, patient says that his oxygen in the office was checked and it was submitted 80s compared to normal when he was at home therefore he was referred to the hospital by Josefina from Dr. Alston office. Currently he is lying comfortable in bed, no dyspnea, no coughing or other respiratory symptoms or chest pain. No smoking, alcohol or illicit drugs. Vitals looks stable, patient is tachypneic with a rate 20-25. CBC showing only mild anemia and thrombocytopenia at 11 and 140 respectively INR 1.2, d-dimer elevated 2.4. Creatinine is elevated at 2.2, baseline 1.3-1.7 sodium 135, Troponin is elevated at 0.04.ProBNP is 18,300 Urine analysis is not suspicious of infection. Showing 1+ protein Coronavirus and influenza virus not detected Chest x-ray: There is some evidence of mild chronic congestive heart failure that is similar to old exam EKG showing normal sinus rhythm at 70 on admission patient was started on asp irin and Lasix 1 Soap Boiler and flaking roll operator are consulted. Ventilation and perfusion scan requested as well as echocardiogram Ventilation and perfusion scan : Probability for pulmonary embolism. Multiple ventilation deface consider underlying airspace disease such as CHF or pneumonia 02/02/2022 Patient breathing is stable and quiet while his interest. Patient denies also exertional dyspnea, his leg swelling is also improving as well as basal crepitation. Creatinine went down to 0.2 down to 2.0. Patient remains on IV Lasix 40 mg twice daily. His sugar most site, yesterday was stopped his Actos and was instructed to not resume it upon discharge and he agrees. Today his 1 mg of Demerol was held as well. We will keep monitoring his sugar. Patient states he did not like the food and appetite yesterday but he empties breakfast this morning muscle echocardiogram , ejection fraction is 40-45% Patient with no evidence of liver disease, geological technical officer already evaluated the patient discharge in 24-40 torr since he keeps improving Objective - Vital Signs Vital signs: Vital Signs Temp 97.7 F 02/02/22 08:00 Pulse 60 02/02/22 08:00 Resp 10 L 02/02/22 08:00 BP 110/78 02/02/22 08:00 Pulse Ox 92 L 02/02/22 08:00 FiO2 Intake & Output 02/01/22 02/02/22 02/02/22 18:59 06:59 18:59 Intake Total 250 Output Total 350 750 200 Balance -350 -500 -200 Intake: Oral 250 Output: Urine 350 750 200 Other: Voiding Method Urinal Urinal Urinal - Exam GENERAL: The patient is alert and oriented x3, not in any acute distress. Well developed, well nourished. HEENT: Pupils are round and equally reacting to light. EOMI. No scleral icterus. No conjunctival pallor. Normocephalic, atraumatic. No pharyngeal erythema. No thyromegaly. CARDIOVASCULAR: S1 and S2 present. No murmurs, rubs, or gallops. PULMONARY: Chest is clear to auscultation, no wheezing or crackles. ABDOMEN: Soft, nontender, nondistended, normoactive bowel sounds. No palpable organomegaly. MUSCULOSKELETAL: No joint swelling or deformity. EXTREMITIES: No cyanosis, clubbing, or pedal edema. NEUROLOGICAL: Gross neurological examination did not reveal any focal deficits. SKIN: No rashes. no petechiae. - Labs CBC & Chem 7: 02/01/22 03:17 02/02/22 06:58 Labs: Abnormal Lab Results - Last 24 Hours (Table) 02/02/22 02/02/22 02/02/22 Range/Units 06:58 08:00 08:04 BUN 27 H (9-20) mg/dL Creatinine 2.07 H (0.66-1.25) mg/dL Glucose 46 L* (74-99) mg/dL POC Glucose (mg/dL) 49 L 48 L (70-110) mg/dL 02/02/22 02/02/22 02/02/22 Range/Units 08:26 09:01 11:26 BUN (9-20) mg/dL Creatinine (0.66-1.25) mg/dL Glucose (74-99) mg/dL POC Glucose (mg/dL) 58 L 126 H 120 H (70-110) mg/dL Assessment and Plan Assessment: Acute dyspnea, most likely secondary to acute CHF Elevated d-dimer, VQ scan is low probability for PE , ultrasound is negative for DVT Acute and chronic congestive heart failure, exacerbated by Actos Elevated troponin Acute kidney injury on chronic kidney disease History of coronary artery disease status post CABG Hypertension Hyperlipidemia Peripheral vascular disease and history of carotid stenosis Plan: This is a pleasant 71 years old male who presents with dyspnea and elevated d- dimer discontinue Actos, informed the patient not to resume outpatient as it worsens heart failure Cardiology and geological technical officer oncologist team were consulted we will defer the anticoagulation management to the geological technical officer team Check ultrasound of the leg Labs and medication were reviewed.. Continue same treatment. Continue with symptomatic treatment. Resume home medication. Monitor lytes and vitals. DVT and GI prophylaxis. Further recommendations as per clinical course of the patient DVT prophylaxis: Subcutaneous heparin GI Prophylaxis: Pepcid PT/OT: Pending Prognosis is guarded
--- NOTE | 2022-02-02 14:36 | P.PN ---
Subjective Progress Note Date: 02/02/22 Principal diagnosis: SOB In f/u today pt states SOB is stable, he is getting to chair, walking a few steps. He is having O2 evaluation today. He ate most of his lunch, no other physical c/o, mild BLE swelling. Objective - Vital Signs Vital signs: Vital Signs Temp 97.3 F L 02/02/22 12:00 Pulse 67 02/02/22 14:01 Resp 19 02/02/22 12:00 BP 142/62 02/02/22 12:00 Pulse Ox 85 L 02/02/22 14:01 FiO2 Intake & Output 02/01/22 02/02/22 02/02/22 18:59 06:59 18:59 Intake Total 250 Output Total 350 750 200 Balance -350 -500 -200 Intake: Oral 250 Output: Urine 350 750 200 Other: Voiding Method Urinal Urinal Urinal - Constitutional General appearance: Present: cooperative, no acute distress, thin - EENT Eyes: Present: anicteric sclerae, EOMI ENT: Present: hearing grossly normal - Respiratory Respiratory: bilateral: CTA - Cardiovascular Rhythm: regular Heart sounds: normal: S1, S2 Abnormal Heart Sounds: Absent: systolic murmur, diastolic murmur, rub, S3 Gallop, S4 Gallop, click, other - Peripheral edema leg Peripheral Edema: bilateral: 1+, Pitting - Gastrointestinal General gastrointestinal: Present: normal bowel sounds - Integumentary Integumentary: Present: pale - Neurologic Neurologic: Present: CNII-XII intact - Musculoskeletal Musculoskeletal: Present: generalized weakness, strength equal bilaterally - Psychiatric Psychiatric: Present: A&O x's 3, appropriate affect, intact judgment & insight - Labs CBC & Chem 7: 02/01/22 03:17 02/02/22 06:58 Labs: Abnormal Lab Results - Last 24 Hours (Table) 02/02/22 02/02/22 02/02/22 Range/Units 06:58 08:00 08:04 BUN 27 H (9-20) mg/dL Creatinine 2.07 H (0.66-1.25) mg/dL Glucose 46 L* (74-99) mg/dL POC Glucose (mg/dL) 49 L 48 L (70-110) mg/dL 02/02/22 02/02/22 02/02/22 Range/Units 08:26 09:01 11:26 BUN (9-20) mg/dL Creatinine (0.66-1.25) mg/dL Glucose (74-99) mg/dL POC Glucose (mg/dL) 58 L 126 H 120 H (70-110) mg/dL - Imaging and Cardiology ECHO report reviewed Assessment and Plan (1) Dyspnea Current Visit: Yes Status: Acute Priority: High Code(s): R06.00 - DYSPNEA, UNSPECIFIED SNOMED Code(s): 713017059 (2) CML (chronic myeloid leukemia) Current Visit: Yes Status: Chronic Priority: Medium Code(s): C92.10 - CHRONIC MYELOID LEUK, BCR/ABL-POSITIVE, NOT ACHIEVE REMIS SNOMED Code(s): 76404393 Plan: Patient admitted for shortness of breath. Noted to have an elevated d-dimer. V/Q, low probability for PE, bilateral lower extremity Doppler negative for DVT. Elevated troponins. chest x-ray suggestive of mild CHF. Cardiology has seen the patient. ECHO report reviewed along with ECHO done 03/29/21. LVEF improved to 40-45% from 35-40% 03/27, severe pulm HTN and severe triscupid regurgitation is similarly reported Creatinine slightly worse than patient's baseline on admit, improved. CBC stable for patient. No acute interventions from Hem/Onc. Hold Bosulif for now as there is side effect of fluid retention. F/U in discharge plan
[2022-02-02 16:27] LABS: Glucose,Whole Blood 148 mg/dL (70-110)
[2022-02-02] MEDS: allopurinoL 300 MG TAB PO SCH (19:03)
[2022-02-02 20:11] LABS: Glucose,Whole Blood 166 mg/dL (70-110)
[2022-02-02] MEDS: METOPROLOL SUCCINATE (ER) 25 MG TAB.ER.24H PO SCH (20:16)
[2022-02-02] MEDS: ATORVASTATIN 80 MG TAB PO SCH (20:16)
[2022-02-03 02:08] LABS: Glucose,Whole Blood 73 mg/dL (70-110)
[2022-02-03 05:59] LABS: Glucose,Whole Blood 63 mg/dL (70-110)
[2022-02-03 06:16] LABS: Glucose,Whole Blood 75 mg/dL (70-110)
[2022-02-03] MEDS: INSULIN ASPART (NovoLOG) 100 UNIT/ML VIAL SQ SCH ×3 (06:18→17:25)
[2022-02-03] MEDS ORDERED: FAMOTIDINE 20 MG TAB PO SCH (09:00)
[2022-02-03] MEDS: FERROUS SULFATE 325 MG TAB PO SCH (09:11)
[2022-02-03] MEDS: ASPIRIN 81 MG PO SCH (09:11)
[2022-02-03] MEDS: FUROSEMIDE 10 MG/ML 4 ML VIAL IV SCH (09:11)
[2022-02-03] MEDS: HEPARIN SODIUM,PORCINE/PF 5,000 UNIT/0.5 ML SYRINGE SQ SCH ×2 (09:11→09:21)
[2022-02-03] MEDS: GLIMEPIRIDE 1 MG TAB PO SCH (09:11)
[2022-02-03 09:42] LABS: Calcium 8.3 mg/dL (8.4-10.2); Potassium 3.8 mmol/L (3.5-5.1)
--- NOTE | 2022-02-03 11:14 | P.PN ---
Subjective This is a pleasant 71-year-old male past medical history significant for coronary artery disease status post CABG, ischemic cardiomyopathy, hypertension, dyslipidemia, valvular heart disease with aortic stenosis, mitral regurgitation, type 2 diabetes, leukemia undergoing treatment with Dr. Alston. He follows in the office with Dr. Ngo. We have been asked to see in consultation for CHF and elevated troponin. Patient presents to the ER from Dr. Alston office secondary to hypoxia and concern for possible pulmonary embolism. 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 He states at home his oxygen saturations were 87-90%. He underwent work up in the hospital. VQ scan low probability for PE. Chest xray mild chronic congestive heart failure present and he was diuresed with IV lasix 40mg BID. Echocardiogram revealed an EF of 4045% inferior apical hypokinesis, severe right ventricular dilatation, moderate to severe pulmonary hypertension 02/03/2022 Patient seen and examined at bedside, no acute distress. He denies any shortness of breath or chest pain. His lower extremity edema has significantly improved. He is feeling well. No acute events overnight. He is currently maintained on IV Lasix 40 mg twice a day. Patient with -675mL fluid balance over the past 24 hours. Decrease in weight noted. Labs: Sodium 136, potassium 3.8, BUN 24, serum creatinine 1.99 PHYSICAL EXAMINATION Vitals reviewed CONSTITUTIONAL: No apparent distress. HEENT: Neck Supple No JVD. CHEST EXAMINATION: Lungs are clear to auscultation bilaterally. No chest wall tenderness is noted on palpation or with deep breathing. HEART EXAMINATION: Regular rate and rhythm. S1, S2 heard.Systolic murmur noted. No gallops or rub. ABDOMEN: Soft, nontender. Positive bowel sounds. EXTREMITIES: 2+ peripheral pulses, trace ankle bilateral lower extremity edema and no calf tenderness. NEUROLOGIC EXAMINATION: Patient is awake, alert and oriented x3. ASSESSMENT Acute on chronic heart failure with reduced ejection fraction Shortness of breath Elevated troponin, likely secondary to acute on chronic kidney disease and hypoxia Acute on chronic kidney disease Leukemia on active treatment Coronary artery disease status post CABG Ischemic cardiomyopathy Hypertension Dyslipidemia Valvular heart disease with aortic stenosis, mitral regurgitation Type 2 diabetes PLAN Transition to PO Lasix 40mg BID Continue aspirin, statin, metoprolol succinate From a cardiology perspective, patient is stable to be discharged home. Follow up outpatient with Dr. Ngo. Nurse practitioner note has been reviewed by physician. Signing provider agrees with the documented findings, assessment, and plan of care. Objective - Vital Signs Vital signs: Vital Signs Temp 98.4 F 02/03/22 09:10 Pulse 61 02/03/22 09:10 Resp 16 02/03/22 09:10 BP 113/67 02/03/22 09:10 Pulse Ox 97 02/03/22 09:10 FiO2 2 02/02/22 14:00 Intake & Output 02/02/22 02/03/22 02/03/22 18:59 06:59 18:59 Intake Total 240 Output Total 200 475 Balance -200 -475 240 Weight 74.5 kg Intake: Oral 240 Output: Urine 200 475 Other: Voiding Method Urinal - Labs CBC & Chem 7: 02/01/22 03:17 02/03/22 08:34 Labs: Abnormal Lab Results - Last 24 Hours (Table) 02/02/22 02/02/22 02/02/22 Range/Units 11:26 16:16 20:09 Sodium (137-145) mmol/L BUN (9-20) mg/dL Creatinine (0.66-1.25) mg/dL Glucose (74-99) mg/dL POC Glucose (mg/dL) 120 H 148 H 166 H (70-110) mg/dL Calcium (8.4-10.2) mg/dL 02/03/22 02/03/22 Range/Units 05:58 08:34 Sodium 136 L (137-145) mmol/L BUN 24 H (9-20) mg/dL Creatinine 1.99 H (0.66-1.25) mg/dL Glucose 116 H (74-99) mg/dL POC Glucose (mg/dL) 63 L (70-110) mg/dL Calcium 8.3 L (8.4-10.2) mg/dL
[2022-02-03 11:39] LABS: Glucose,Whole Blood 111 mg/dL (70-110)
[2022-02-03 13:09] VITALS: RESP 18
[2022-02-03] MEDS ORDERED: FUROSEMIDE 40 MG TAB PO SCH (16:00)
[2022-02-03 16:10] LABS: Glucose,Whole Blood 161 mg/dL (70-110)
[2022-02-03 16:35] VITALS: BP 103/58; PULSE 62; TEMP 98.1
--- NOTE | 2022-02-03 17:10 | P.PN ---
Subjective Progress Note Date: 02/03/22 Principal diagnosis: SOB, CML on treatment In f/u today pt states SOB is stable, he did O2 test and does need home O2, no other c/o, anxious to go home. Objective - Vital Signs Vital signs: Vital Signs Temp 98.1 F 02/03/22 16:35 Pulse 62 02/03/22 16:35 Resp 18 02/03/22 16:35 BP 103/58 02/03/22 16:35 Pulse Ox 95 02/03/22 16:35 FiO2 2 02/02/22 14:00 Intake & Output 02/02/22 02/03/22 02/03/22 18:59 06:59 18:59 Intake Total 480 Output Total 200 475 150 Balance -200 -475 330 Weight 74.5 kg Intake: Oral 480 Output: Urine 200 475 150 Other: Voiding Method Urinal Toilet - Constitutional General appearance: Present: average body habitus, cooperative, no acute distress - EENT Eyes: Present: anicteric sclerae, EOMI, poor dentition ENT: Present: hearing grossly normal - Respiratory Respiratory: bilateral: CTA, diminished - Cardiovascular Rhythm: regular Heart sounds: normal: S1, S2 Abnormal Heart Sounds: Present: systolic murmur - Peripheral edema leg Peripheral Edema: bilateral: None - Gastrointestinal General gastrointestinal: Present: normal bowel sounds, soft - Neurologic Neurologic: Present: CNII-XII intact - Musculoskeletal Musculoskeletal: Present: strength equal bilaterally - Psychiatric Psychiatric: Present: A&O x's 3, appropriate affect, intact judgment & insight - Labs CBC & Chem 7: 02/01/22 03:17 02/03/22 08:34 Labs: Abnormal Lab Results - Last 24 Hours (Table) 02/02/22 02/03/22 02/03/22 Range/Units 20:09 05:58 08:34 Sodium 136 L (137-145) mmol/L BUN 24 H (9-20) mg/dL Creatinine 1.99 H (0.66-1.25) mg/dL Glucose 116 H (74-99) mg/dL POC Glucose (mg/dL) 166 H 63 L (70-110) mg/dL Calcium 8.3 L (8.4-10.2) mg/dL 02/03/22 02/03/22 Range/Units 11:38 16:08 Sodium (137-145) mmol/L BUN (9-20) mg/dL Creatinine (0.66-1.25) mg/dL Glucose (74-99) mg/dL POC Glucose (mg/dL) 111 H 161 H (70-110) mg/dL Calcium (8.4-10.2) mg/dL Assessment and Plan (1) Dyspnea Current Visit: Yes Status: Acute Priority: High Code(s): R06.00 - DYSPNEA, UNSPECIFIED SNOMED Code(s): 145965916 (2) CML (chronic myeloid leukemia) Current Visit: Yes Status: Chronic Priority: Medium Code(s): C92.10 - CHRONIC MYELOID LEUK, BCR/ABL-POSITIVE, NOT ACHIEVE REMIS SNOMED Code(s): 27947193 Plan: Patient admitted for shortness of breath. Noted to have an elevated d-dimer. V/Q, low probability for PE, bilateral lower extremity Doppler negative for DVT. Elevated troponins. chest x-ray suggestive of mild CHF. Cardiology has seen the patient. ECHO report reviewed along with ECHO done 03/29/21. LVEF improved to 40-45% from 35-40% 03/27, severe pulm HTN and severe triscupid regurgitation is similarly reported Creatinine slightly worse than patient's baseline on admit, improved since admit. CBC stable for patient. No acute interventions from Hem/Onc. Hold Bosuliffor now as there is side effect of fluid retention. Discussed case with Attending F/U in discharge plan Attests: I have seen and examined pt, performed H&P, developed impression and plan of care. Discussed with dictator, agree with dictation, documented as a scribe
[2022-02-03] MEDS: allopurinoL 300 MG TAB PO SCH (17:25)
--- NOTE | 2022-02-03 23:58 | P.DS ---
Providers Date of admission: 01/31/22 23:13 Attending physician: Tabitha Lopez Consults: 01/31/22 23:13 Consult Physician Routine Consulting Provider: [facility] Consult Reason/Comments: chf, elevated troponin Do you want consulting provider notified?: Yes, Notify in am 01/31/22 23:19 Consult Physician Routine Consulting Provider: Joel Alston Consult Reason/Comments: elevated D-Dimer, leukemia Do you want consulting provider notified?: Yes, Notify in am Primary care physician: Eyal Mccauley Hospital Course: Diagnoses: Acute dyspnea, secondary to acute CHF Elevated d-dimer, VQ scan is low probability for PE , ultrasound is negative for DVT Acute and chronic congestive heart failure, exacerbated by Actos Elevated troponin Acute kidney injury on chronic kidney disease History of coronary artery disease status post CABG Hypertension Hyperlipidemia Peripheral vascular disease and history of carotid stenosis Hospital course: This is a pleasant 71 years old male with past medical history of Coronary Artery Disease r, Diabetes Mellitus, Hyperlipidemia, Hypertension, PVD carotid stenosis. Coronary Bypass/CABG, Patient states that his been diagnosed with leukemia about 1.5 years ago, since then his been having generalized weakness and dyspnea especially with exertion where he has to walk for 20-30 feet before he got completely exhausted, patient was sent by his oncologist Dr. Alston to rule out PE. Patient had low probability for PE on VQ scan, Doppler was negative for DVT. Also patient was found to have evidence of acute CHF, has been followed by straddle bug operator and treated with diuretics, patient showed interval improvement and on the day of discharge increase his home dose of oral Lasix from 40 mg daily and to twice daily per straddle bug operator. Actos was discontinued. Patient sugar remained on the low side about 6070 so, was also discontinued. Hemoglobin A1c is 5.7% patient informed to stop diabetes medication and to keep check his sugar at home 4 times a day and at bedtime and to bring the result of his doctor. He agrees. On the day of discharge he denies chest pain or dyspnea. No abdominal pain. No change in urine or bowel habits. No fever. Patient feels improved and ready to go home today. Patient was cared for discharge by straddle bug operator and oncology team. Problems and management plan were discussed with the patient and he verbalized understanding and acceptance Patient was found stable and can be discharged home however he needs follow-up as an outpatient. Patient was instructed to follow up with PCP Dr. Mccauley within one week and patient agrees Patient was instructed to follow up with his straddle bug operator Dr. Manning in [address] Alston in 1-2 weeks and he agrees to call and make his own appointment Physical exam Gen: patient is a AAOx3, no distress CVS: S1-S2, RRR, no murmur Lungs: B/L CTA, no wheezing Abdomen: soft, no distention, no tenderness, positive bowel sounds Extremity: no leg edema or induration Time spent more than 35 minutes Patient Condition at Discharge: Stable Plan - Discharge Summary Discharge Rx Participant: Yes New Discharge Prescriptions: New Furosemide [Lasix] 40 mg PO BID@0900,1600 #60 tab Continue Ferrous Sulfate [Iron (65 MG Elemental)] 325 mg PO DAILY calcitrioL [Calcitriol] 0.25 mcg PO SUWE Atorvastatin Calcium [Lipitor] 80 mg PO HS Metoprolol Succinate [Metoprolol Succinate ER] 25 mg PO HS allopurinoL [Zyloprim] 300 mg PO W/SUPPER Potassium Chloride ER [K-Dur 10] 10 meq PO DAILY Aspirin 81 mg PO DAILY Discontinued Pioglitazone [Actos] 15 mg PO DAILY Glimepiride [Amaryl] 1 mg PO DAILY Furosemide [Lasix] 40 mg PO HS Bosutinib [Bosulif] 300 mg PO W/SUPPER Discharge Medication List Atorvastatin Calcium [Lipitor] 80 mg PO HS 03/28/21 [History] Ferrous Sulfate [Iron (65 MG Elemental)] 325 mg PO DAILY 03/28/21 [History] allopurinoL [Zyloprim] 300 mg PO W/SUPPER 03/28/21 [History] calcitrioL [Calcitriol] 0.25 mcg PO SUWE 03/28/21 [History] Aspirin 81 mg PO DAILY 01/31/22 [History] Metoprolol Succinate [Metoprolol Succinate ER] 25 mg PO HS 01/31/22 [History] Potassium Chloride ER [K-Dur 10] 10 meq PO DAILY 01/31/22 [History] Furosemide [Lasix] 40 mg PO BID@0900,1600 #60 tab 02/03/22 [Rx] Follow up Appointment(s)/Referral(s): Zulema Aldana NPC [Nurse Practitioner] - 02/23/22 9:15 am Niranjan Ngo MD [STAFF PHYSICIAN] - 2 Weeks Eyal Mccauley MD [Primary Care Provider] - 1-2 days [facility], [NON-STAFF] - 1 Week Patient Instructions/Handouts: Hypoglycemia in a Person with Diabetes (GEN), Using Oxygen at Home (GEN), Hypoxia (GEN) Activity/Diet/Wound Care/Special Instructions: hold bosStarbatesf heart healthy low sugar (carbohydrate) diet , 1600 k whit per day activity is restricted till you see your doctor we recommend to check your glucose 4 times per day , before each meal and at bed time, keep the results in a log book and bring it to your doctor on your appointment date if your glucose is less than 70 or more than 400 then call 911 and come to emergency room Discharge Disposition: HOME WITH HOME HEALTH SERVICES
--- NOTE | 2022-02-08 20:20 | CDI ---
Documentation Clarification Form Date: 02/08/2022 08:12:02 PM From: Portia Mead Phone: Admit Date: 01/31/2022 11:13:00 PM Patient Name: Pk Greene Visit Number: [id number] Discharge Date: 02/03/2022 08:50:00 PM ATTENTION: The Clinical Documentation Specialists (CDI) and [facility] Coding Staff appreciate your assistance in clarifying documentation. Please respond to the clarification below the line at the bottom and electronically sign. The CDI & [facility] Coding staff will review the response and follow-up if needed. Please note: Queries are made part of the Legal Health Record. If you have any questions, please contact the author of this message via ITS. Dr. Tabitha Lopez Unspecified CKD is documented in the H&P. Additional clarification regarding the stage of CKD is requested. History/Risk Factors: 71yo M, Mild anemia, thrombocytopenia, D Dimer elev, Acute dyspnea likely dt A/CSCHF, Elev trop, HOA on CKD, HTN, VHD Clinical Indicators: BUN 32 H (9-20) mg/dL Creatinine 2.28 H (0.66-1.25) mg/dL Est GFR (CKD-EPI)AfAm (>60 ml/min/1.73 sqM) Est GFR (CKD-EPI)NonAf (>60 ml/min/1.73 sqM) Treatment: IV Lasix 40mg BID for 24 hours; Continue aspirin, statin, metoprolol succinate; monitor renal function and electrolytes; Monitor I/Os daily weights Please clarify the stage of the CKD, if known: [ ] CKD Stage 1 (GFR > 90) [ ] CKD Stage 2 (GFR 60-89) [ ] CKD Stage 3 (GFR 30-59) [ ] CKD Stage 3a (GFR 45-59) [ ] CKD Stage 3b (GFR 30-44) [ ] CKD Stage 4 (GFR 15-29) [ ] CKD Stage 5 (GFR <15) [ ] ESRD [ ] Other, please specify [ ] Unable to determine (Template Last revised: September 2020) CKD Stage 3 (GFR 30-59) [facility]
== END 2022-02-03 20:50 | disposition home health service (06) | DRG 291 ==
LOC: EC 16:35 → 3SCARD 23:13 → 2SICU 02-01 09:40 → 3SCARD 02-02 21:39
PROVIDERS: ADMIT Hospitalist; ATTEND Hospitalist
DX: I13.0 Hypertensive heart and chronic kidney disease with heart failure and stage 1 through stage 4 chronic kidney disease, or unspecified chronic kidney disease (principal); I50.23 Acute on chronic systolic (congestive) heart failure; N17.9 Acute kidney failure, unspecified; C92.10 Chronic myeloid leukemia, BCR/ABL-positive, not having achieved remission; D69.6 Thrombocytopenia, unspecified; I27.20 Pulmonary hypertension, unspecified; E11.51 Type 2 diabetes mellitus with diabetic peripheral angiopathy without gangrene; E11.22 Type 2 diabetes mellitus with diabetic chronic kidney disease; I65.29 Occlusion and stenosis of unspecified carotid artery; I08.3 Combined rheumatic disorders of mitral, aortic and tricuspid valves; D63.0 Anemia in neoplastic disease; I25.10 Atherosclerotic heart disease of native coronary artery without angina pectoris; R79.89 Other specified abnormal findings of blood chemistry; E78.5 Hyperlipidemia, unspecified; R09.02 Hypoxemia; N18.30 Chronic kidney disease, stage 3 unspecified; Z20.822 Contact with and (suspected) exposure to COVID-19; R53.1 Weakness; R01.1 Cardiac murmur, unspecified; T38.3X5A Adverse effect of insulin and oral hypoglycemic [antidiabetic] drugs, initial encounter; I25.5 Ischemic cardiomyopathy; I45.10 Unspecified right bundle-branch block; Z95.1 Presence of aortocoronary bypass graft; Z79.82 Long term (current) use of aspirin; Z79.84 Long term (current) use of oral hypoglycemic drugs; Z79.899 Other long term (current) drug therapy; Z92.21 Personal history of antineoplastic chemotherapy; Z88.8 Allergy status to other drugs, medicaments and biological substances; Z87.891 Personal history of nicotine dependence; Z80.1 Family history of malignant neoplasm of trachea, bronchus and lung
CPT/HCPCS: 36415; 71046; 78582; 80048; 80053; 81001; 83036; 83735; 83880; 84484; 85025; 85379; 85610; 85730; 87502; 87635; 93005; 93306; 93970; 94760; 96372; 96374; 96376; 99291

== ENCOUNTER 2022-07-28 13:57 | Observation (INO) | payer MEDICARE ==
[2022-07-28 15:00] LABS: Anisocytosis Slight; Appearance,Urine Clear (Clear); Basophils % (A) 0 %; Bilirubin,Urine Negative (Negative); Blood,Urine Negative (Negative); Color,Urine Light Yellow; Eosinophils # (A) 0.5 k/uL (0-0.7); Eosinophils % (A) 6 %; Glucose,Urine (UA) Negative (Negative); HCT 37.8 % (39.0-53.0); HGB 12.2 gm/dL (13.0-17.5); Ketones,Urine Negative (Negative); Leukocyte Esterase,Urine Negative (Negative); Lymphocytes % (A) 13 %; MCH 29.9 pg (25.0-35.0); MCHC 32.4 g/dL (31.0-37.0); MCV 92.2 fL (80.0-100.0); Mean Platelet Volume 10.7; Monocytes # (A) 0.5 k/uL (0-1.0); Monocytes % (A) 7 %; Neutrophils # (A) 5.5 k/uL (1.3-7.7); Neutrophils % (A) 71 %; Nitrite,Urine Negative (Negative); Platelet Count 106 k/uL (150-450); Protein,Urine Negative (Negative); RDW 17.4 % (11.5-15.5); Urobilinogen,Urine <2.0 mg/dL (<2.0); WBC 7.8 k/uL (3.8-10.6)
[2022-07-28 15:14] LABS: Albumin 4.3 g/dL (3.5-5.0); Calcium 8.9 mg/dL (8.4-10.2); Potassium 5.4 mmol/L (3.5-5.1); Total Bilirubin 0.4 mg/dL (0.2-1.3); Total Protein 7.2 g/dL (6.3-8.2)
[2022-07-28] MEDS ORDERED: SODIUM CHLORIDE 0.9% 1,000 ML IV STA (17:18)
[2022-07-28] MEDS ORDERED: SODIUM CHLORIDE 0.9% 500 ML IV STA (17:18)
[2022-07-28] MEDS ORDERED: SODIUM ZIRCONIUM CYCLOSILICATE 10 GM PACKET PO ONE (17:19)
--- NOTE | 2022-07-28 18:53 | ED ---
General Adult HPI - General Chief complaint: Recheck/Abnormal Lab/Rx Stated complaint: Irregular labs,sent by PCP Time Seen by Provider: 07/28/22 15:30 Source: patient Mode of arrival: ambulatory Limitations: no limitations - History of Present Illness Initial comments: This 71-year-old male presents after being sent in by primary care for elevated kidney function study. He states that he was seen earlier in the week and they noted him to have some elevation of his renal function studies. He apparently does have chronic kidney disease. They repeated the tests today and it showed a more increased level of his creatinine as well as elevated potassium and told him to come to the emergency department. He states that he is asymptomatic currently. He denies any chest pain, shortness breath, fevers, chills, or other complaints or modifying factors. He states that he follows up with Dr. Freeman from nephrology and his renal function has been stable recently. He does take Lasix and potassium for his congestive heart failure and this seems under control but he did have an exacerbation several months ago. He's been eating and drinking well. He denies any recent infections or fevers. - Related Data Home Medications Medication Instructions Recorded Confirmed Atorvastatin Calcium [Lipitor] 80 mg PO W/SUPPER 03/28/21 07/28/22 Ferrous Sulfate [Iron (65 MG 325 mg PO DAILY 03/28/21 07/28/22 Elemental)] allopurinoL [Zyloprim] 300 mg PO W/SUPPER 03/28/21 07/28/22 calcitrioL [Calcitriol] 0.25 mcg PO SUWE 03/28/21 07/28/22 Aspirin 81 mg PO DAILY 01/31/22 07/28/22 Metoprolol Succinate [Metoprolol 25 mg PO W/SUPPER 01/31/22 07/28/22 Succinate ER] Potassium Chloride ER [K-Dur 10] 10 meq PO DAILY 01/31/22 07/28/22 Bosutinib [Bosulif] 200 mg PO DIRECTED 07/28/22 07/28/22 Furosemide [Lasix] 40 mg PO W/SUPPER 07/28/22 07/28/22 lisinopriL [Zestril] 2.5 mg PO DAILY 07/28/22 07/28/22 Allergies Allergy/AdvReac Type Severity Reaction Status Date / Time albuterol [From DuoNeb] Allergy Chest Pain Verified 07/28/22 16:41 ipratropium [From DuoNeb] Allergy Chest Pain Verified 07/28/22 16:41 Review of Systems ROS Statement: Those systems with pertinent positive or pertinent negative responses have been documented in the HPI. ROS Other: All systems not noted in ROS Statement are negative. Past Medical History Past Medical History: Coronary Artery Disease (CAD), Cancer, Diabetes Mellitus, Hyperlipidemia, Hypertension, Renal Disease Additional Past Medical History / Comment(s): PVD carotid stenosis. The patient does have a 40 year pack per day smoking history but has not had any pulmonary symptoms. No inhalers, no oxygen at home. History of Any Multi-Drug Resistant Organisms: None Reported Past Surgical History: Coronary Bypass/CABG, Orthopedic Surgery Additional Past Surgical History / Comment(s): screws in right knee Past Anesthesia/Blood Transfusion Reactions: No Reported Reaction Past Psychological History: No Psychological Hx Reported Smoking Status: Former smoker Past Alcohol Use History: None Reported Past Drug Use History: None Reported - Past Family History Father Additional Family Medical History / Comment(s): of throat cancer Mother Additional Family Medical History / Comment(s): fell and broke hip then General Exam - General Exam Comments Initial Comments: GENERAL: The patient is well nourished and well hydrated. VITAL SIGNS: Heart rate, blood pressure, respiratory rate reviewed as recorded in nurse's notes. EYES: Pupils are round and reactive. Extraocular movements are intact. No conjunctival / lid redness or swelling. ENT: No external evidence of injury, swelling, or ecchymosis. Airway is patent. Throat is clear. NECK: Nontender. No swelling or evidence of injury. No subcutaneous emphysema. T rachea is midline. No thyroid mass. HEART: Regular rate and rhythm. Good peripheral pulses. LUNGS/CHEST: Breath sounds clear and equal bilaterally. No rales, rhonchi, or wheezes. No ecchymosis, subcutaneous emphysema, or tenderness. ABDOMEN: Abdomen soft without tenderness. No palpable masses or organomegaly. No peritoneal signs. No abdominal wall swelling or ecchymosis. EXTREMITIES: No extremity tenderness. Normal muscle tone and function. No thoracolumbar tenderness. NEUROLOGIC: Sensation is grossly intact. Cranial nerve exam reveals face is symmetrical, tongue is midline, speech is clear. SKIN: No abrasions or ecchymosis is noted. No induration or masses noted. PSYCHIATRIC: Alert and oriented. Appropriate behavior and judgment. Limitations: no limitations Course Vital Signs 07/28/22 07/28/22 14:04 18:19 Temperature 97.9 F Pulse Rate 49 L 47 L Respiratory 18 18 Rate Blood Pressure 118/51 123/62 O2 Sat by Pulse 98 99 Oximetry Medical Decision Making - Medical Decision Making The patient was seen and examined. He just had laboratory done prior to coming into the emergency department. This does show an elevation of his creatinine at 2.95. This is trended out and does appear to be elevated as compared to normal. His potassium also is elevated at 5.4. An IV is established patient is mildly hydrated. His licensed pesticide applicator, Dr. Freeman is paged on several occasions and does eventually called back and requests a bladder scan. The case is discussed with Dr. Lopez and his PA and they are agreeable with admission. He does receive some lokalema for his hyperkalemia. Repeat labs are ordered for a.m. Nephrology consult is placed. Patient is admitted to a telemetry bed due to his bradycardia. The EKG eventually is done and does show normal sinus rhythm at a rate of 75. There is no acute ST-T wave changes identified. The [place] intervals 144, QRS duration is 110, and the QTC intervals 419. - Lab Data Result diagrams: 07/28/22 14:39 07/28/22 14:39 Lab Results 07/28/22 07/28/22 07/28/22 Range/Units 14:39 14:39 14:39 WBC 7.8 (3.8-10.6) k/uL RBC 4.10 L (4.30-5.90) m/uL Hgb 12.2 L (13.0-17.5) gm/dL Hct 37.8 L (39.0-53.0) % MCV 92.2 (80.0-100.0) fL MCH 29.9 (25.0-35.0) pg MCHC 32.4 (31.0-37.0) g/dL RDW 17.4 H (11.5-15.5) % Plt Count 106 L (150-450) k/uL MPV 10.7 Neutrophils % 71 % Lymphocytes % 13 % Monocytes % 7 % Eosinophils % 6 % Basophils % 0 % Neutrophils # 5.5 (1.3-7.7) k/uL Lymphocytes # 1.0 (1.0-4.8) k/uL Monocytes # 0.5 (0-1.0) k/uL Eosinophils # 0.5 (0-0.7) k/uL Basophils # 0.0 (0-0.2) k/uL Anisocytosis Slight Sodium 137 (137-145) mmol/L Potassium 5.4 H (3.5-5.1) mmol/L Chloride 108 H (98-107) mmol/L Carbon Dioxide 19 L (22-30) mmol/L Anion Gap 10 mmol/L BUN 79 H (9-20) mg/dL Creatinine 2.95 H (0.66-1.25) mg/dL Est GFR (CKD-EPI)AfAm 23 (>60 ml/min/1.73 sqM) Est GFR (CKD-EPI)NonAf 20 (>60 ml/min/1.73 sqM) Glucose 109 H (74-99) mg/dL Calcium 8.9 (8.4-10.2) mg/dL Total Bilirubin 0.4 (0.2-1.3) mg/dL AST 29 (17-59) U/L ALT 24 (4-49) U/L Alkaline Phosphatase 104 (38-126) U/L Total Protein 7.2 (6.3-8.2) g/dL Albumin 4.3 (3.5-5.0) g/dL Urine Color Light Yellow Urine Appearance Clear (Clear) Urine pH 5.0 (5.0-8.0) Ur Specific [place] 1.010 (1.001-1.035) Urine Protein Negative (Negative) Urine Glucose (UA) Negative (Negative) Urine Ketones Negative (Negative) Urine Blood Negative (Negative) Urine Nitrite Negative (Negative) Urine Bilirubin Negative (Negative) Urine Urobilinogen <2.0 (<2.0) mg/dL Ur Leukocyte Esterase Negative (Negative) Disposition Clinical Impression: Acute kidney injury, Hyperkalemia, Bradycardia, Anemia Disposition: ADMITTED IP TO THIS [facility] Condition: Fair Is patient prescribed a controlled substance at d/c from ED?: No Time of Disposition: 17:00 Decision Date: 07/28/22 Decision Time: 17:00
--- NOTE | 2022-07-28 20:08 | HP ---
HISTORY AND PHYSICAL CHIEF COMPLAINT: Worsening of the labs. HISTORY OF PRESENT ILLNESS: This 71-year-old gentleman with a past medical history of chronic kidney disease, diabetes mellitus, multiple other medical problems, being followed by Dr. Mccauley and Dr. Freeman, and the patient was found to have abnormal labs and because of concerns of the worsening renal failure, the patient was sent to [facility] and was admitted for further evaluation. There is no history of any fever, rigors, or chills. PAST MEDICAL HISTORY: Reviewed and include diabetes mellitus, kidney disease. Rest of the history and rest of the chart is also reviewed. HOME MEDICATIONS: Again, reviewed and include Zestril. Dose and rest of medications reviewed. ALLERGIES: Reviewed. FAMILY HISTORY: History of throat cancer. SOCIAL HISTORY: Previous history of smoking. REVIEW OF SYSTEMS: A 14-point review of systems is negative except as mentioned earlier. PHYSICAL EXAMINATION: VITAL SIGNS: Pulse is 49, blood pressure ntd, respirations 18. HEENT: Conjunctivae normal. Oral mucosa dry. NECK: No JVD. CARDIOVASCULAR: S1, S2. RESPIRATION: Breath sounds diminished at the bases. No rhonchi. No crackles. ABDOMEN: Soft, nontender. LEGS: No edema. NERVOUS SYSTEM: Nonfocal. SKIN: No ulcer, rash, or bleeding. JOINTS: No active deforming arthropathy. LABORATORY DATA: Potassium 5.4, creatinine is 2.95. The rest of the labs reviewed. ASSESSMENT: 1. Acute on chronic kidney failure. 2. Chronic kidney disease, stage 3. 3. Mild hyperkalemia. 4. Diabetes mellitus, type 2. 5. Multiple medical issues. RECOMMENDATIONS: In this 71-year-old gentleman, who presented with multiple complex medical issues, we will monitor the patient closely. I would recommend gentle hydration with Lokelma. Otherwise, Nephrology evaluation. Repeat labs in the morning. Prognosis is guarded because of multiple complex medical issues. Further recommendations to follow. MMODL / IJN: [id number] / RAMSEY
[2022-07-29] MEDS ORDERED: PANTOPRAZOLE 40 MG TABLET PO SCH (07:30)
[2022-07-29 08:05] LABS: African American GFR (CKD) 30 (>60 ml/min/1.73 sqM); Anion Gap 7 mmol/L; Blood Urea Nitrogen 68 mg/dL (9-20); Calcium 8.8 mg/dL (8.4-10.2); Carbon Dioxide 19 mmol/L (22-30); Chloride 109 mmol/L (98-107); Glucose 91 mg/dL (74-99); Non-African American GFR(CKD) 26 (>60 ml/min/1.73 sqM); Phosphorus 4.3 mg/dL (2.5-4.5); Potassium 4.7 mmol/L (3.5-5.1); Sodium 135 mmol/L (137-145)
[2022-07-29 08:06] LABS: Anisocytosis Slight; Basophils % (A) 1 %; Eosinophils # (A) 0.3 k/uL (0-0.7); Eosinophils % (A) 5 %; HGB 11.1 gm/dL (13.0-17.5); Hypochromasia Slight; Lymphocytes # (A) 0.9 k/uL (1.0-4.8); Lymphocytes % (A) 15 %; MCH 30.6 pg (25.0-35.0); MCHC 32.6 g/dL (31.0-37.0); MCV 93.8 fL (80.0-100.0); Monocytes # (A) 0.5 k/uL (0-1.0); Monocytes % (A) 8 %; Neutrophils # (A) 4.2 k/uL (1.3-7.7); Neutrophils % (A) 69 %; Platelet Count 102 k/uL (150-450); RBC 3.62 m/uL (4.30-5.90); RDW 17.1 % (11.5-15.5); WBC 6.1 k/uL (3.8-10.6)
[2022-07-29 08:18] VITALS: BP 119/57; PULSE 49; RESP 16; TEMP 97.5
[2022-07-29] MEDS ORDERED: SODIUM ZIRCONIUM CYCLOSILICATE 10 GM PACKET PO SCH (09:00)
[2022-07-29] MEDS ORDERED: ENOXAPARIN 40 MG/0.4 ML SYRINGE SQ SCH (09:00)
[2022-07-29] MEDS ORDERED: FERROUS SULFATE 325 MG TAB PO SCH (09:00)
[2022-07-29] MEDS ORDERED: ASPIRIN 81 MG PO SCH (09:00)
[2022-07-29] MEDS ORDERED: ATORVASTATIN 80 MG TAB PO SCH (17:30)
[2022-07-29] MEDS ORDERED: METOPROLOL SUCCINATE (ER) 25 MG TAB.ER.24H PO SCH (17:30)
[2022-07-29] MEDS ORDERED: allopurinoL 300 MG TAB PO SCH (17:30)
[2022-07-29] MEDS ORDERED: BOSUTINIB 100 MG PO SCH (17:30)
[2022-07-29] MEDS ORDERED: FUROSEMIDE 40 MG TAB PO SCH (17:30)
--- NOTE | 2022-07-30 01:44 | DS ---
DISCHARGE SUMMARY FINAL DIAGNOSES: 1. Acute on chronic kidney failure, stable. 2. Chronic kidney disease, stage 3. 3. Mild hyperkalemia. 4. Diabetes mellitus, type 2. 5. Multiple medical issues. DISCHARGE DISPOSITION: The patient will be discharged in stable condition with guarded prognosis. HISTORY OF PRESENT ILLNESS: This 71-year-old gentleman was admitted with hyperkalemia and mild acute on chronic renal failure. The creatinine was elevated up to 2.95, after hydration, improved to 0.41, potassium also localized. PHYSICAL EXAMINATION: VITAL SIGNS: Stable. CARDIOVASCULAR: S1, S2. RESPIRATIONS: Clear. NERVOUS SYSTEM: No focal deficits. DISCHARGE MEDICATIONS: The patient will be discharged to continue the same home medications and we discontinued Lasix and potassium. Continue follow up with primary physician and Nephrology. Follow up with Dr. Mccauley and Dr. Freeman. Followup labs in the outpatient setting. Please note the current creatinine has improved and more close to the baseline. MMODL / IJN: [id number] /
== END 2022-07-29 13:30 | disposition home or self-care (01) ==
LOC: EC 13:57 → 6NMEDSUR 17:44
PROVIDERS: ADMIT Hospitalist; ATTEND Hospitalist
DX: N17.9 Acute kidney failure, unspecified (principal); I13.0 Hypertensive heart and chronic kidney disease with heart failure and stage 1 through stage 4 chronic kidney disease, or unspecified chronic kidney disease; N18.30 Chronic kidney disease, stage 3 unspecified; I50.9 Heart failure, unspecified; E11.22 Type 2 diabetes mellitus with diabetic chronic kidney disease; E87.5 Hyperkalemia; R00.1 Bradycardia, unspecified; I65.29 Occlusion and stenosis of unspecified carotid artery; I45.2 Bifascicular block; D64.9 Anemia, unspecified; E11.51 Type 2 diabetes mellitus with diabetic peripheral angiopathy without gangrene; Z79.82 Long term (current) use of aspirin; Z79.899 Other long term (current) drug therapy; Z88.8 Allergy status to other drugs, medicaments and biological substances; Z87.891 Personal history of nicotine dependence; Z95.1 Presence of aortocoronary bypass graft; Z85.9 Personal history of malignant neoplasm, unspecified; Z98.890 Other specified postprocedural states; Z80.8 Family history of malignant neoplasm of other organs or systems
CPT/HCPCS: 99285; 51798; 36415; 93005; 80053; 80048; 83735; 84100; 85025 ×2; 81003; G0378 ×2

== ENCOUNTER 2023-06-01 12:11 | Inpatient (IN) | payer MEDICARE ==
[2023-06-01 13:34] LABS: ALT 16 U/L (4-49); AST 37 U/L (17-59); African American GFR (CKD) 16 (>60 ml/min/1.73 sqM); Albumin 4.1 g/dL (3.5-5.0); Alkaline Phosphatase 139 U/L (38-126); Anion Gap 16 mmol/L; Blood Urea Nitrogen 63 mg/dL (9-20); Calcium 9.2 mg/dL (8.4-10.2); Carbon Dioxide 16 mmol/L (22-30); Chloride 108 mmol/L (98-107); Glucose 103 mg/dL (74-99); Non-African American GFR(CKD) 13 (>60 ml/min/1.73 sqM); Potassium 4.4 mmol/L (3.5-5.1); Sodium 140 mmol/L (137-145); Total Bilirubin 0.9 mg/dL (0.2-1.3); Total Protein 7.4 g/dL (6.3-8.2)
[2023-06-01] MEDS ORDERED: SODIUM CHLORIDE 0.9% 1,000 ML IV STA ×2 (14:03)
[2023-06-01 14:07] LABS: Anisocytosis Slight; Basophils % (A) 0 %; Eosinophils # (A) 0.4 k/uL (0-0.7); Eosinophils % (A) 5 %; HCT 42.7 % (39.0-53.0); HGB 13.2 gm/dL (13.0-17.5); Hypochromasia Slight; Lymphocytes # (A) 0.9 k/uL (1.0-4.8); Lymphocytes % (A) 11 %; MCH 30.4 pg (25.0-35.0); Macrocytosis Slight; Mean Platelet Volume 12.2; Monocytes # (A) 0.4 k/uL (0-1.0); Monocytes % (A) 6 %; Neutrophils # (A) 5.9 k/uL (1.3-7.7); Neutrophils % (A) 76 %; Platelet Count 127 k/uL (150-450); RBC 4.36 m/uL (4.30-5.90); RDW 17.9 % (11.5-15.5); WBC 7.8 k/uL (3.8-10.6)
--- NOTE | 2023-06-01 14:27 | ED ---
Recheck HPI - General Chief Complaint: Recheck/Abnormal Lab/Rx Stated Complaint: kidneys Time Seen by Provider: 06/01/23 13:40 Source: patient, RN notes reviewed Mode of arrival: ambulatory Limitations: no limitations - History of Present Illness Initial Comments: This is a 72-year-old male who presents to the emergency department for abnormal blood work. States that he had outpatient blood work done today, demonstrating decreasing renal function. His oncologist, Dr. Altson, instructed him to come to the emergency department for evaluation. He does see Dr. Freeman for stage 3 CKD, and last saw her last month. He is currently being treated by Dr. Alston for leukemia. Patient denies any complaints and states that he otherwise feels fine. MD Complaint: abnormal lab - Related Data Home Medications Medication Instructions Recorded Confirmed Atorvastatin Calcium [Lipitor] 80 mg PO W/SUPPER 03/28/21 06/01/23 Ferrous Sulfate [Iron (65 MG 325 mg PO DAILY 03/28/21 06/01/23 Elemental)] allopurinoL [Zyloprim] 300 mg PO HS 03/28/21 06/01/23 calcitrioL [Calcitriol] 0.25 mcg PO SUWE 03/28/21 06/01/23 Aspirin 81 mg PO DAILY 01/31/22 06/01/23 Metoprolol Succinate [Metoprolol 25 mg PO HS 01/31/22 06/01/23 Succinate ER] Bosutinib [Bosulif] 200 mg PO W/SUPPER 07/28/22 06/01/23 lisinopriL [Zestril] 2.5 mg PO DAILY 07/28/22 06/01/23 Ergocalciferol (Vitamin D2) 1,250 mcg PO Q14D 06/01/23 06/01/23 [Drisdol (50,000 Iu)] Furosemide [Lasix] 40 mg PO DAILY 06/01/23 06/01/23 Levocetirizine Dihydrochloride 2.5 mg PO HS 06/01/23 06/01/23 [Xyzal] Potassium Chloride ER [K-Dur 10] 10 meq PO DAILY 06/01/23 06/01/23 Allergies Allergy/AdvReac Type Severity Reaction Status Date / Time albuterol [From DuoNeb] Allergy Chest Verified 06/01/23 16:10 Pain/Heart Failure ipratropium [From DuoNeb] Allergy Chest Verified 06/01/23 16:10 Pain/Heart Failure Review of Systems ROS Statement: Those systems with pertinent positive or pertinent negative responses have been documented in the HPI. ROS Other: All systems not noted in ROS Statement are negative. Past Medical History Past Medical History: Coronary Artery Disease (CAD), Cancer, Diabetes Mellitus, Hyperlipidemia, Hypertension, Renal Disease Additional Past Medical History / Comment(s): PVD carotid stenosis. The patient does have a 40 year pack per day smoking history but has not had any pulmonary symptoms. No inhalers, no oxygen at home. History of Any Multi-Drug Resistant Organisms: None Reported Past Surgical History: Coronary Bypass/CABG, Orthopedic Surgery Additional Past Surgical History / Comment(s): screws in right knee Past Anesthesia/Blood Transfusion Reactions: No Reported Reaction Past Psychological History: No Psychological Hx Reported Smoking Status: Former smoker Past Alcohol Use History: None Reported Past Drug Use History: None Reported - Past Family History Father Additional Family Medical History / Comment(s): of throat cancer Mother Additional Family Medical History / Comment(s): fell and broke hip then General Exam Limitations: no limitations General appearance: alert, in no apparent distress Head exam: Present: atraumatic, normocephalic, normal inspection Respiratory exam: Present: normal lung sounds bilaterally. Absent: respiratory distress, wheezes, rales, rhonchi, stridor Cardiovascular Exam: Present: regular rate, normal rhythm, normal heart sounds. Absent: systolic murmur, diastolic murmur, rubs, gallop, clicks GI/Abdominal exam: Present: soft, normal bowel sounds. Absent: distended, tenderness, guarding, rebound, rigid Neurological exam: Present: alert, oriented X3, CN II-XII intact Psychiatric exam: Present: normal affect, normal mood Skin exam: Present: warm, dry, intact, normal color. Absent: rash Course Vital Signs 06/01/23 12:39 Temperature 97.9 F Pulse Rate 56 L Respiratory 20 Rate Blood Pressure 107/62 O2 Sat by Pulse 97 Oximetry Medical Decision Making - Medical Decision Making This is a 72-year-old male who presents to the emergency department for abnormal blood work demonstrating poor renal function. Was pt. sent in by a medical professional or institution? @ -Dr. Alston Did you speak to anyone other than the patient for history? @ -No Did you review nursing and triage notes? @ -Yes, and I agree, it is accurate with regards to the patient's symptoms. Were old charts reviewed? @ -No Differential Diagnosis? @ -Differential HOA: Dehydration, electrolyte deficiency, renal artery stenosis, vasculitis, medications, this is not meant to be on this list. EKG interpreted by me (3pts min.)? @ -Not obtained X-rays interpreted by me (1pt min.)? @ -Not obtained CT interpreted by me (1pt min.)? @ -Not obtained U/S interpreted by me (1pt. min.)? @ -Not obtained What testing was considered but not performed? (CT, X-rays, U/S, labs)? Why? @ -None What meds were considered but not given? Why? @ -None Did you discuss the management of the patient with other professionals? @ -Yes, Dr. Horowitz who accepts the patient for admission to medicine. Did you reconcile home meds? @ -Yes Was smoking cessation discussed for >3mins.? @ -No Was critical care preformed (if so, how long)? @ -No Were there social determinants of health that impacted care today? How? (Homelessness, low income, unemployed, alcoholism, drug addiction, transportation, low edu. Level, literacy, decrease access to med. care, prison, rehab)? @ -No Was there de-escalation of care discussed even if they declined? (Discuss DNR or withdrawal of care, Hospice)? @ -No What co-morbidities impacted this encounter? (DM, HTN, Smoking, COPD, CAD, Cancer, CVA, Hep., AIDS, mental health diagnosis, sleep apnea, morbid obesity)? @ -CKD, DM, HLD, HTN, leukemia Was patient admitted / discharged? @ -Admitted. Lab work obtained demonstrating poor renal function with a creatinine of 4.1 and GFR of 13. This has decreased substantially since blood work obtained in our system from July 2022. It is unclear when he had labs checked in between then and now and what those values were. Lab work was otherwise fairly unremarkable. Urinalysis negative for signs of infection. Patient was given a liter bolus of IV fluids and started on maintenance fluids at 75 mL/hr. Patient admitted to medicine for acute kidney injury. Consult placed for nephrology and hem/onc. Undiagnosed new problem with uncertain prognosis? @ -None Drug Therapy requiring intensive monitoring for toxicity (Heparin, Nitro, Insulin, Cardizem)? @ -None Were any procedures done? @ -None Diagnosis/symptom? @ -HOA Acute, or Chronic, or Acute on Chronic? @ -Acute on chronic Uncomplicated (without systemic symptoms) or Complicated (systemic symptoms)? @ -Uncomplicated Side effects of treatment? @ -None Exacerbation, Progression, or Severe Exacerbation] @ -Not applicable Poses a threat to life or bodily function? @ -Yes This case was discussed in detail with the attending ED physician, Dr. Barbosa. Presentation, findings, and treatment plan discussed in detail as well. - Lab Data Result diagrams: 06/01/23 12:46 06/01/23 12:46 Lab Results 06/01/23 06/01/23 06/01/23 Range/Units 12:46 12:46 15:02 WBC 7.8 (3.8-10.6) k/uL RBC 4.36 (4.30-5.90) m/uL Hgb 13.2 (13.0-17.5) gm/dL Hct 42.7 (39.0-53.0) % MCV 98.0 (80.0-100.0) fL MCH 30.4 (25.0-35.0) pg MCHC 31.0 (31.0-37.0) g/dL RDW 17.9 H (11.5-15.5) % Plt Count 127 L (150-450) k/uL MPV 12.2 Neutrophils % 76 % Lymphocytes % 11 % Monocytes % 6 % Eosinophils % 5 % Basophils % 0 % Neutrophils # 5.9 (1.3-7.7) k/uL Lymphocytes # 0.9 L (1.0-4.8) k/uL Monocytes # 0.4 (0-1.0) k/uL Eosinophils # 0.4 (0-0.7) k/uL Basophils # 0.0 (0-0.2) k/uL Hypochromasia Slight Anisocytosis Slight Macrocytosis Slight Sodium 140 (137-145) mmol/L Potassium 4.4 (3.5-5.1) mmol/L Chloride 108 H (98-107) mmol/L Carbon Dioxide 16 L (22-30) mmol/L Anion Gap 16 mmol/L BUN 63 H (9-20) mg/dL Creatinine 4.11 H (0.66-1.25) mg/dL Est GFR (CKD-EPI)AfAm 16 (>60 ml/min/1.73 sqM) Est GFR (CKD-EPI)NonAf 13 (>60 ml/min/1.73 sqM) Glucose 103 H (74-99) mg/dL Calcium 9.2 (8.4-10.2) mg/dL Total Bilirubin 0.9 (0.2-1.3) mg/dL AST 37 (17-59) U/L ALT 16 (4-49) U/L Alkaline Phosphatase 139 H (38-126) U/L Total Protein 7.4 (6.3-8.2) g/dL Albumin 4.1 (3.5-5.0) g/dL Urine Color Yellow Urine Appearance Clear (Clear) Urine pH 5.0 (5.0-8.0) Ur Specific [place] 1.020 (1.001-1.035) Urine Protein Negative (Negative) Urine Glucose (UA) Negative (Negative) Urine Ketones Negative (Negative) Urine Blood Negative (Negative) Urine Nitrite Negative (Negative) Urine Bilirubin Negative (Negative) Urine Urobilinogen <2.0 (<2.0) mg/dL Ur Leukocyte Esterase Negative (Negative) Disposition Clinical Impression: Acute on chronic kidney failure, Leukemia Disposition: ADMITTED IP TO THIS HOSP
[2023-06-01 15:45] LABS: Appearance,Urine Clear (Clear); Color,Urine Yellow
[2023-06-01 15:46] LABS: Bilirubin,Urine Negative (Negative); Blood,Urine Negative (Negative); Glucose,Urine (UA) Negative (Negative); Ketones,Urine Negative (Negative); Leukocyte Esterase,Urine Negative (Negative); Nitrite,Urine Negative (Negative); Protein,Urine Negative (Negative); Urobilinogen,Urine <2.0 mg/dL (<2.0)
[2023-06-01] MEDS ORDERED: HYDROcodone/APAP 5-325MG 1 EACH TAB PO PRN (17:42)
[2023-06-01] MEDS ORDERED: ACETAMINOPHEN TAB 325 MG TAB PO PRN (17:42)
[2023-06-01] MEDS ORDERED: NALOXONE 0.4 MG/ML 1 ML VIAL IV PRN (17:42)
[2023-06-01] MEDS ORDERED: ONDANSETRON 4 MG/2 ML VIAL IVP PRN (17:42)
[2023-06-01] MEDS: allopurinoL 300 MG TAB PO SCH (20:44)
[2023-06-01] MEDS: METOPROLOL SUCCINATE (ER) 25 MG TAB.ER.24H PO SCH (20:44)
[2023-06-01] MEDS: LORATADINE 10 MG TAB PO SCH (20:44)
[2023-06-01 21:59] LABS: Glucose,Whole Blood 114 mg/dL (70-110)
[2023-06-02 07:58] LABS: Glucose,Whole Blood 102 mg/dL (70-110)
[2023-06-02] MEDS: PANTOPRAZOLE 40 MG/10 ML VIAL IV SCH (08:52)
[2023-06-02] MEDS ORDERED: FUROSEMIDE 40 MG TAB PO SCH (09:00)
[2023-06-02] MEDS ORDERED: POTASSIUM CHLORIDE ER 10 MEQ TAB.ER.PRT PO SCH (09:00)
[2023-06-02 09:03] LABS: African American GFR (CKD) 17 (>60 ml/min/1.73 sqM); Anion Gap 14 mmol/L; Blood Urea Nitrogen 62 mg/dL (9-20); Calcium 8.7 mg/dL (8.4-10.2); Carbon Dioxide 18 mmol/L (22-30); Chloride 108 mmol/L (98-107); Glucose 101 mg/dL (74-99); Magnesium 2.1 mg/dL (1.6-2.3); Non-African American GFR(CKD) 15 (>60 ml/min/1.73 sqM); Potassium 4.2 mmol/L (3.5-5.1); Sodium 140 mmol/L (137-145)
[2023-06-02] MEDS: ASPIRIN 81 MG PO SCH (09:05)
[2023-06-02] MEDS: FERROUS SULFATE 325 MG TAB PO SCH (09:05)
--- NOTE | 2023-06-02 09:20 | P.NPCON ---
History of Present Illness - Reason for Consult acute renal failure, chronic renal failure - History of Present Illness Reason for consultation: Acute kidney injury on chronic kidney disease History of present illness: Patient is a 72-year-old male seen in consultation for acute kidney injury on chronic kidney disease. Patient has chronic kidney disease stage IIIB with baseline creatinine in the range of 2.2-2.4 secondary to diabetic kidney disease. Patient has history of leukemia and follows with oncology outpatient. Patient states blood work was done by his oncologist outpatient and was advised to quit the hospital due to worsening renal function. Patient's creatinine on admission was 4.11 and is 3.85 today. He does take Lasix at home and also received a dose of 40 mg oral Lasix this morning. He is also on lisinopril. Patient did receive 1 L of normal saline bolus and then short duration of maintenance IV fluids. Patient has history of coronary disease status post CABG. Patient has long-standing history of diabetes. He does wear home oxygen and is currently on 4 L. He denies chest pain or shortness of breath. No edema. No hematuria. No fever or chills. No cough. Vital signs are stable. General: No acute distress. HEENT: Head exam is unremarkable. On nasal cannula. LUNGS: Notable rhonchi or wheezes. HEART: Rate and Rhythm are regular. ABDOMEN: Nontender. EXTREMITITES: No edema. Past Medical History Past Medical History: Coronary Artery Disease (CAD), Cancer, Diabetes Mellitus, Hyperlipidemia, Hypertension, Renal Disease Additional Past Medical History / Comment(s): PVD carotid stenosis. The patient does have a 40 year pack per day smoking history but has not had any pulmonary symptoms. No inhalers, no oxygen at home. History of Any Multi-Drug Resistant Organisms: None Reported Past Surgical History: Coronary Bypass/CABG, Orthopedic Surgery Additional Past Surgical History / Comment(s): screws in right knee Past Anesthesia/Blood Transfusion Reactions: No Reported Reaction Past Psychological History: No Psychological Hx Reported Smoking Status: Former smoker Past Alcohol Use History: None Reported Past Drug Use History: None Reported - Past Family History Father Additional Family Medical History / Comment(s): of throat cancer Mother Additional Family Medical History / Comment(s): fell and broke hip then Medications and Allergies Home Medications Medication Instructions Recorded Confirmed Type Atorvastatin Calcium [Lipitor] 80 mg PO W/SUPPER 03/28/21 06/01/23 History Ferrous Sulfate [Iron (65 MG 325 mg PO DAILY 03/28/21 06/01/23 History Elemental)] allopurinoL [Zyloprim] 300 mg PO HS 03/28/21 06/01/23 History calcitrioL [Calcitriol] 0.25 mcg PO SUWE 03/28/21 06/01/23 History Aspirin 81 mg PO DAILY 01/31/22 06/01/23 History Metoprolol Succinate [Metoprolol 25 mg PO HS 01/31/22 06/01/23 History Succinate ER] Bosutinib [Bosulif] 200 mg PO W/SUPPER 07/28/22 06/01/23 History lisinopriL [Zestril] 2.5 mg PO DAILY 07/28/22 06/01/23 History Ergocalciferol (Vitamin D2) 1,250 mcg PO Q14D 06/01/23 06/01/23 History [Drisdol (50,000 Iu)] Furosemide [Lasix] 40 mg PO DAILY 06/01/23 06/01/23 History Levocetirizine Dihydrochloride 2.5 mg PO HS 06/01/23 06/01/23 History [Xyzal] Potassium Chloride ER [K-Dur 10] 10 meq PO DAILY 06/01/23 06/01/23 History Allergies Allergy/AdvReac Type Severity Reaction Status Date / Time albuterol [From DuoNeb] Allergy Chest Verified 06/01/23 16:10 Pain/Heart Failure ipratropium [From DuoNeb] Allergy Chest Verified 06/01/23 16:10 Pain/Heart Failure Physical Exam Vitals: Vital Signs Temp Pulse Pulse Resp BP BP BP 06/02/23 08:59 54 L 101/54 06/02/23 02:00 97.7 F 59 L 16 102/61 06/01/23 20:00 97.5 F L 70 16 120/73 06/01/23 19:15 69 14 95/49 06/01/23 12:39 97.9 F 56 L 20 107/62 Pulse Ox 06/02/23 08:59 94 L 06/02/23 02:00 96 06/01/23 20:00 95 06/01/23 19:15 94 L 06/01/23 12:39 97 Intake and Output 06/01/23 06/02/23 06/02/23 22:59 06:59 14:59 Intake Total 590 120 Output Total 200 Balance 390 120 Intake: Oral 590 120 Output: Urine 200 Other: Voiding Method Toilet Urinal # Voids 2 Weight 77.111 kg Results - Lab Results Most recent lab results Calcium 8.7 mg/dL (8.4-10.2) 06/02/23 08:37 Magnesium 2.1 mg/dL (1.6-2.3) 06/02/23 08:37 06/01/23 12:46 06/02/23 08:37 Assessment and Plan Plan: Assessment: 1. Acute kidney injury secondary to ATN secondary to hypovolemia further worsened with the use of diuretics and ANAYA inhibitor. Creatinine 4.11 on admission and is 3.85 today. UA benign. 2. Chronic kidney disease stage IIIB with baseline creatinine 2.2-2.4 secondary to nephrosclerosis and diabetic kidney disease. 3. Metabolic acidosis secondary to acute kidney injury and IV fluids. 4. Chronic systolic CHF with ejection fraction of 40-45% with moderate tricuspid regurgitation and moderate to severe pulmonary hypertension. 5. Chronic kidney disease mineral bone disease maintained on calcitriol. 6. Coronary artery disease status post CABG in past. 7. Diabetes. Plan: Resume gentle IV hydration. Hold Lasix and lisinopril. Check bladder scan to rule out urinary retention. Check renal ultrasound. Encouraged oral intake. Avoid nephrotoxins. Continue to monitor renal function and urine output. Add oral bicarb. Thank you for the consultation. I will continue to follow the patient with you during his hospital stay.
[2023-06-02] MEDS: SODIUM CHLORIDE 0.9% 1,000 ML IV SCH (09:40)
[2023-06-02] MEDS: SODIUM BICARBONATE TAB 650 MG TAB PO SCH ×2 (09:40→21:20)
--- NOTE | 2023-06-02 11:17 | US ---
EXAMINATION TYPE: US kidneys/renal and bladder DATE OF EXAM: 06/02/2023 COMPARISON: CLINICAL INDICATION: Male, 72 years old with history of lorna; Abnormal labs Portable inpatient exam EXAM MEASUREMENTS: Right Kidney: 9.9 x 4.5 x 4.9 cm Left Kidney: 10.0 x 3.5 x 4.8 cm Right Kidney: Cortical thinning. Limited visualization of lower pole due to bowel gas. Left Kidney: Cortical thinning Bladder: distended, anechoic Bilateral Jets not seen Incidental finding: Ascites visualized in both RLQ and LLQ There is no evidence for hydronephrosis at this point in time. No nephrolithiasis is seen. No arley s are identified. The urinary bladder is anechoic. Bilateral ureteral jets are seen. IMPRESSION: 1. Cortical thinning is seen within the kidneys bilaterally with no hydronephrosis or renal mass iden tified. 2. Moderate amount of ascites is seen throughout the abdomen and pelvic region. 3. Incidental note is made of a nodular contour to the liver which would be compatible with cirrhosis .
[2023-06-02 12:41] LABS: Glucose,Whole Blood 108 mg/dL (70-110)
--- NOTE | 2023-06-02 14:21 | P.CRDCN ---
History of Present Illness History of present illness: HISTORY OF PRESENT ILLNESS: This is a 72-year-old male with a past medical history significant for coronary artery disease with previous CABG, ischemic cardiomyopathy, valvular heart disease, hypertension, hyperlipidemia, and leukemia. Patient follows in the office with Dr. Ngo. We have been asked to see the patient in consultation for bradycardia. Patient examined at the bedside. Patient is sitting on the side of the bed eating lunch. Patient states he had outpatient labs drawn and was told to come to the emergency room secondary to abnormal kidney function. He has been evaluated by nephrology. The patient currently denies chest pain or pressure. He denies shortness of breath. Patient has documented heart rates in the 50s. The patient did not have an EKG completed and is currently not on telemetry monitoring. The patient denies any dizziness or lightheadedness. He denies any episodes of syncope. Blood pressure is stable with a systolic in the 90s. REVIEW OF SYSTEMS: At the time of my exam: CONSTITUTIONAL: Denies fever or chills. HEENT: Denies blurred vision, vision changes, or eye pain. Denies hemoptysis CARDIOVASCULAR: Denies chest pain. Denies orthopnea. Denies PND. Denies palpitations RESPIRATORY: Denies shortness of breath. GASTROINTESTINAL: Denies abdominal pain. Denies nausea or vomiting. HEMATOLOGIC: Denies bleeding disorders. GENITOURINARY: Denies any blood in urine. SKIN: Denies pruitis. Denies rash. PHYSICAL EXAM: VITAL SIGNS: Reviewed. GENERAL: Well-developed in no acute distress. HEENT: Head is normocephalic. Pupils are equal, round. Sclerae anicteric. Mucous membranes of the mouth are moist. Neck supple. No JVD or thyromegaly LUNGS: Respirations even and unlabored. Lungs essentially clear to auscultation bilaterally. HEART: Bradycardic. Regular rate and rhythm. S1 and S2 heard. Systolic murmur noted ABDOMEN: Soft. Nondistended. Nontender. EXTREMITIES: Normal range of motion. No clubbing or cyanosis. Peripheral pulses intact. No lower extremity edema NEUROLOGIC: Awake and alert. Oriented x 3. ASSESSMENT: Acute on chronic kidney disease Asymptomatic bradycardia Coronary artery disease with previous CABG Ischemic cardiomyopathy, ejection fraction 40% Valvular heart disease Hypertension Hyperlipidemia Leukemia Diabetes PLAN: Continue with current dose of metoprolol succinate. Documented heart rates in the 50s. Patient is asymptomatic. Obtain EKG Begin telemetry monitoring Further recommendations pending patient's course Nurse practitioner note has been reviewed by physician. Signing provider agrees with the documented findings, assessment, and plan of care. Past Medical History Past Medical History: Coronary Artery Disease (CAD), Cancer, Diabetes Mellitus, Hyperlipidemia, Hypertension, Renal Disease Additional Past Medical History / Comment(s): PVD carotid stenosis. The patient does have a 40 year pack per day smoking history but has not had any pulmonary symptoms. No inhalers, no oxygen at home. History of Any Multi-Drug Resistant Organisms: None Reported Past Surgical History: Coronary Bypass/CABG, Orthopedic Surgery Additional Past Surgical History / Comment(s): screws in right knee Past Anesthesia/Blood Transfusion Reactions: No Reported Reaction Past Psychological History: No Psychological Hx Reported Smoking Status: Former smoker Past Alcohol Use History: None Reported Past Drug Use History: None Reported - Past Family History Father Additional Family Medical History / Comment(s): of throat cancer Mother Additional Family Medical History / Comment(s): fell and broke hip then Medications and Allergies Home Medications Medication Instructions Recorded Confirmed Type Atorvastatin Calcium [Lipitor] 80 mg PO W/SUPPER 03/28/21 06/01/23 History Ferrous Sulfate [Iron (65 MG 325 mg PO DAILY 03/28/21 06/01/23 History Elemental)] allopurinoL [Zyloprim] 300 mg PO HS 03/28/21 06/01/23 History calcitrioL [Calcitriol] 0.25 mcg PO SUWE 03/28/21 06/01/23 History Aspirin 81 mg PO DAILY 01/31/22 06/01/23 History Metoprolol Succinate [Metoprolol 25 mg PO HS 01/31/22 06/01/23 History Succinate ER] Bosutinib [Bosulif] 200 mg PO W/SUPPER 07/28/22 06/01/23 History lisinopriL [Zestril] 2.5 mg PO DAILY 07/28/22 06/01/23 History Ergocalciferol (Vitamin D2) 1,250 mcg PO Q14D 06/01/23 06/01/23 History [Drisdol (50,000 Iu)] Furosemide [Lasix] 40 mg PO DAILY 06/01/23 06/01/23 History Levocetirizine Dihydrochloride 2.5 mg PO HS 06/01/23 06/01/23 History [Xyzal] Potassium Chloride ER [K-Dur 10] 10 meq PO DAILY 06/01/23 06/01/23 History Allergies Allergy/AdvReac Type Severity Reaction Status Date / Time albuterol [From DuoNeb] Allergy Chest Verified 06/01/23 16:10 Pain/Heart Failure ipratropium [From DuoNeb] Allergy Chest Verified 06/01/23 16:10 Pain/Heart Failure Physical Exam Vitals: Vital Signs Temp Pulse Pulse Resp BP BP BP 06/02/23 12:27 97.6 F 56 L 20 94/53 06/02/23 10:34 97.6 F 53 L 16 92/46 06/02/23 08:59 54 L 101/54 06/02/23 02:00 97.7 F 59 L 16 102/61 06/01/23 20:00 97.5 F L 70 16 120/73 06/01/23 19:15 69 14 95/49 Pulse Ox 06/02/23 12:27 96 06/02/23 10:34 94 L 06/02/23 08:59 94 L 06/02/23 02:00 96 06/01/23 20:00 95 06/01/23 19:15 94 L Intake and Output 06/01/23 06/02/23 06/02/23 22:59 06:59 14:59 Intake Total 590 120 Output Total 200 Balance 390 120 Intake: Oral 590 120 Output: Urine 200 Other: Voiding Method Toilet Urinal # Voids 2 Weight 77.111 kg Results 06/01/23 12:46 06/02/23 08:37 Comprehensive Metabolic Panel 06/02/23 Range/Units 08:37 Sodium 140 (137-145) mmol/L Potassium 4.2 (3.5-5.1) mmol/L Chloride 108 H (98-107) mmol/L Carbon Dioxide 18 L (22-30) mmol/L BUN 62 H (9-20) mg/dL Creatinine 3.85 H (0.66-1.25) mg/dL Glucose 101 H (74-99) mg/dL Calcium 8.7 (8.4-10.2) mg/dL Current Medications Generic Name Dose Route Start Last Admin Trade Name Freq PRN Reason Stop Dose Admin Acetaminophen 650 mg 06/01/23 17:42 Acetaminophen Tab 325 Mg Tab PO Q6HR PRN Mild Pain or Fever > 100.5 Hydrocodone Bitart/Acetaminophen 1 each 06/01/23 17:42 Hydrocodone/Apap 5-325mg 1 Each Tab PO Q4HR PRN Moderate Pain (Scale 4 to 6) Allopurinol 300 mg 06/01/23 21:00 06/01/23 20:44 Allopurinol 300 Mg Tab PO 300 mg HS TAQUERIA Administration Aspirin 81 mg 06/02/23 09:00 06/02/23 09:05 Aspirin 81 Mg PO 81 mg DAILY TAQUERIA Administration Atorvastatin Calcium 80 mg 06/02/23 17:30 Atorvastatin 80 Mg Tab PO W/SUPPER TAQUERIA Calcitriol 0.25 mcg 06/04/23 09:00 Calcitriol 0.25 Mcg Cap PO SUWE TAQUERIA Ferrous Sulfate 325 mg 06/02/23 09:00 06/02/23 09:05 Ferrous Sulfate 325 Mg Tab PO 325 mg DAILY TAQUERIA Administration Sodium Chloride 1,000 mls @ 50 mls/hr 06/02/23 09:30 06/02/23 09:40 Saline 0.9% IV 50 mls/hr .Q20H TAQUERIA Administration Loratadine 10 mg 06/01/23 21:00 06/01/23 20:44 Loratadine 10 Mg Tab PO 10 mg HS TAQUERIA Administration Metoprolol Succinate 25 mg 06/01/23 21:00 06/01/23 20:44 Metoprolol Succinate (Er) 25 Mg Tab.Er.24h PO 25 mg HS TAQUERIA Administration Naloxone HCl 0.2 mg 06/01/23 17:42 Naloxone 0.4 Mg/Ml 1 Ml Vial IV Q2M PRN Opioid Reversal Ondansetron HCl 4 mg 06/01/23 17:42 Ondansetron 4 Mg/2 Ml Vial IVP Q8HR PRN Nausea And Vomiting Pantoprazole Sodium 40 mg 06/02/23 09:00 06/02/23 08:52 Pantoprazole 40 Mg/10 Ml Vial IV 40 mg DAILY TAQUERIA Administration Sodium Bicarbonate 650 mg 06/02/23 09:30 06/02/23 09:40 Sodium Bicarbonate Tab 650 Mg Tab PO 650 mg BID TAQUERIA Administration Intake and Output 06/01/23 06/02/23 06/02/23 22:59 06:59 14:59 Intake Total 590 120 Output Total 200 Balance 390 120 Intake: Oral 590 120 Output: Urine 200 Other: Voiding Method Toilet Urinal # Voids 2 Weight 77.111 kg 06/01/23 12:46 06/02/23 08:37
--- NOTE | 2023-06-02 14:38 | P.HPIM ---
History of Present Illness H&P Date: 06/02/23 History of present illness; patient is a 72-year-old gentleman with past medical history significant for leukemia, CKD who presented to The ER because of abnormal blood work. Patient was sent in by his oncologist as patient had blood work drawn outpatient that showed patient to have decreased renal function. Patient denied any nausea, vomiting or abdominal pain. Denies any diarrhea. Denies any decreased appetite. No complaint of fever or chills. Patient was worked up in the ER. Initial lab work done in the ER showed patient to be 7.8, hemoglobin 13.2, platelet count 127, sodium 140, potassium 4.4, BUN 63, creatinine 4.11 glucose 103 UA negative for any infection Patient was admitted to medicine service REVIEW OF SYSTEMS: CONSTITUTIONAL: No fever, no malaise, no fatigue. HEENT: No recent visual problems or hearing problems. Denied any sore throat. CARDIOVASCULAR: No chest pain, orthopnea, PND, no palpitations, no syncope. PULMONARY: No shortness of breath, no cough, no hemoptysis. GASTROINTESTINAL: No diarrhea, no nausea, no vomiting, no abdominal pain. NEUROLOGICAL: No headaches, no weakness, no numbness. HEMATOLOGICAL: Denies any bleeding or petechiae. GENITOURINARY: Denies any burning micturition, frequency, or urgency. MUSCULOSKELETAL/RHEUMATOLOGICAL: Denies any joint pain, swelling, or any muscle pain. ENDOCRINE: Denies any polyuria or polydipsia. The rest of the 14-point review of systems is negative. PHYSICAL EXAMINATION: GENERAL: The patient is alert and oriented x3, not in any acute distress. Well developed, well nourished. HEENT: Pupils are round and equally reacting to light. EOMI. No scleral icterus. No conjunctival pallor. Normocephalic, atraumatic. No pharyngeal erythema. No thyromegaly. CARDIOVASCULAR: S1 and S2 present. No murmurs, rubs, or gallops. PULMONARY: Chest is clear to auscultation, no wheezing or crackles. ABDOMEN: Soft, nontender, nondistended, normoactive bowel sounds. No palpable organomegaly. MUSCULOSKELETAL: No joint swelling or deformity. EXTREMITIES: No cyanosis, clubbing, or pedal edema. NEUROLOGICAL: Gross neurological examination did not reveal any focal deficits. SKIN: No rashes. Assessment and plan Acute on chronic kidney disease Asymptomatic bradycardia Metabolic acidosis secondary to acute kidney injury and IV fluids. Chronic systolic CHF with ejection fraction of 40-45% with moderate tricuspid regurgitation and moderate to severe pulmonary hypertension. Chronic kidney disease mineral bone disease maintained on calcitriol. Coronary artery disease status post CABG in past. Hypertension Monitor vital signs Monitor CBC Monitor CMP Strict I's and O's Daily weights Ordered ultrasound of kidneys Avoid nephrotoxic agents Hold Lasix and lisinopril Resume home meds Nephrology consulted Urology evaluated the patient, recommended to continue patient on beta blockers telemetry ordered Labs and medication were reviewed.. Continue same treatment. Continue with symptomatic treatment. Resume home medication. Monitor labs and vitals. DVT and GI prophylaxis. Further recommendations as per clinical course of the patient Dictation was produced using [employer] dictation software. please excuse any grammatical, word or spelling errors. Past Medical History Past Medical History: Coronary Artery Disease (CAD), Cancer, Diabetes Mellitus, Hyperlipidemia, Hypertension, Renal Disease Additional Past Medical History / Comment(s): PVD carotid stenosis. The patient does have a 40 year pack per day smoking history but has not had any pulmonary symptoms. No inhalers, no oxygen at home. History of Any Multi-Drug Resistant Organisms: None Reported Past Surgical History: Coronary Bypass/CABG, Orthopedic Surgery Additional Past Surgical History / Comment(s): screws in right knee Past Anesthesia/Blood Transfusion Reactions: No Reported Reaction Past Psychological History: No Psychological Hx Reported Smoking Status: Former smoker Past Alcohol Use History: None Reported Past Drug Use History: None Reported - Past Family History Father Additional Family Medical History / Comment(s): of throat cancer Mother Additional Family Medical History / Comment(s): fell and broke hip then Medications and Allergies Home Medications Medication Instructions Recorded Confirmed Type Atorvastatin Calcium [Lipitor] 80 mg PO W/SUPPER 03/28/21 06/01/23 History Ferrous Sulfate [Iron (65 MG 325 mg PO DAILY 03/28/21 06/01/23 History Elemental)] allopurinoL [Zyloprim] 300 mg PO HS 03/28/21 06/01/23 History calcitrioL [Calcitriol] 0.25 mcg PO SUWE 03/28/21 06/01/23 History Aspirin 81 mg PO DAILY 01/31/22 06/01/23 History Metoprolol Succinate [Metoprolol 25 mg PO HS 01/31/22 06/01/23 History Succinate ER] Bosutinib [Bosulif] 200 mg PO W/SUPPER 07/28/22 06/01/23 History lisinopriL [Zestril] 2.5 mg PO DAILY 07/28/22 06/01/23 History Ergocalciferol (Vitamin D2) 1,250 mcg PO Q14D 06/01/23 06/01/23 History [Drisdol (50,000 Iu)] Furosemide [Lasix] 40 mg PO DAILY 06/01/23 06/01/23 History Levocetirizine Dihydrochloride 2.5 mg PO HS 06/01/23 06/01/23 History [Xyzal] Potassium Chloride ER [K-Dur 10] 10 meq PO DAILY 06/01/23 06/01/23 History Allergies Allergy/AdvReac Type Severity Reaction Status Date / Time albuterol [From DuoNeb] Allergy Chest Verified 06/01/23 16:10 Pain/Heart Failure ipratropium [From DuoNeb] Allergy Chest Verified 06/01/23 16:10 Pain/Heart Failure Physical Exam Vitals: Vital Signs Temp Pulse Pulse Resp BP BP BP 06/02/23 08:59 54 L 101/54 06/02/23 02:00 97.7 F 59 L 16 102/61 06/01/23 20:00 97.5 F L 70 16 120/73 06/01/23 19:15 69 14 95/49 06/01/23 12:39 97.9 F 56 L 20 107/62 Pulse Ox 06/02/23 08:59 94 L 06/02/23 02:00 96 06/01/23 20:00 95 06/01/23 19:15 94 L 06/01/23 12:39 97 Intake and Output 06/01/23 06/02/23 06/02/23 22:59 06:59 14:59 Intake Total 590 120 Output Total 200 Balance 390 120 Intake: Oral 590 120 Output: Urine 200 Other: Voiding Method Toilet Urinal # Voids 2 Weight 77.111 kg Results CBC & Chem 7: 06/01/23 12:46 06/02/23 08:37 Labs: Abnormal Lab Results - Last 24 Hours (Table) 06/01/23 06/01/23 06/01/23 Range/Units 12:46 12:46 21:42 RDW 17.9 H (11.5-15.5) % Plt Count 127 L (150-450) k/uL Lymphocytes # 0.9 L (1.0-4.8) k/uL Chloride 108 H (98-107) mmol/L Carbon Dioxide 16 L (22-30) mmol/L BUN 63 H (9-20) mg/dL Creatinine 4.11 H (0.66-1.25) mg/dL Glucose 103 H (74-99) mg/dL POC Glucose (mg/dL) 114 H (70-110) mg/dL Alkaline Phosphatase 139 H (38-126) U/L 06/02/23 Range/Units 08:37 RDW (11.5-15.5) % Plt Count (150-450) k/uL Lymphocytes # (1.0-4.8) k/uL Chloride 108 H (98-107) mmol/L Carbon Dioxide 18 L (22-30) mmol/L BUN 62 H (9-20) mg/dL Creatinine 3.85 H (0.66-1.25) mg/dL Glucose 101 H (74-99) mg/dL POC Glucose (mg/dL) (70-110) mg/dL Alkaline Phosphatase (38-126) U/L
[2023-06-02] MEDS: ATORVASTATIN 80 MG TAB PO SCH (17:03)
--- NOTE | 2023-06-02 17:03 | P.CONS ---
History of Present Illness - Reason for Consult Consult date: 06/02/23 hx leukemia Requesting physician: Winifred Alarcon - Chief Complaint HOA/CKD - History of Present Illness Patient is a 72-year-old male with a significant history of CML. He is a patient of Dr. Alston. He was first referred to our clinic for elevated WBC. Based on labs available, in 08/26 WBC was 11.8 with hemoglobin 14.1 and platelets 184. MCHC was mildly high normal at 33 with other indices, normal. Differential was essentially normal, other than mildly increased monocytes. Upon f/u differentials began to show neutrophils of 10.2, monocytes elevated at 1.9, then increase in monocytes to 2.6, as well as increased left shift with metamyelocytes of 500, myelocytes 400, and monocytes 200. Review of peripheral blood smear by pathologist confirmed presence of left shift with concern for myeloproliferative disorder. The patient had extensive workup down, including M PD related markers. This was positive for BCR/ABL confirming CML ( p210 b3a2 56.34%, b2a2 0.02%). He has been on multiple treatment regimens due to intolerance to medications. He was then started on Bosulif in 12/2021, with overall good tolerance to medication. And has continued on Bosulif since. With BCR-abl transcripts decreasing to undetectable when checked in 02/25, versus 0.868% in early 01/26. Patient was seen in follow-up in clinic on 05/30/23 for routine follow-up. CMP drawn in clinic revealed creatinine of 5.1. Patient does have history of CKD and creatinine levels are usually in the high 1 to low 2 range. Patient at that time was instructed to go to the ER for further evaluation Upon presentation to the ER creatinine was noted at 4.11, GFR 13. Patient reports overall feeling well and only complaint is fatigue. Denies any urinary complaints. Reports he is urinating at his baseline. Denies burning and urinary frequency. Denies hematuria. UA was negative for acute infection and hematuria. CBC revealed WBC 7.8, hemoglobin 13.2, platelets 127,000. Creatinine improved today at 3.85. Nephrology following and believes acute kidney injury is related to ATN secondary to hypovolemia and use of diuretics and NAAYA inhibitors. Renal ultrasound has been ordered. Review of Systems 10 point ROS is negative except as stated in the HPI Past Medical History Past Medical History: Coronary Artery Disease (CAD), Cancer, Diabetes Mellitus, Hyperlipidemia, Hypertension, Renal Disease Additional Past Medical History / Comment(s): PVD carotid stenosis. The patient does have a 40 year pack per day smoking history but has not had any pulmonary symptoms. No inhalers, no oxygen at home. History of Any Multi-Drug Resistant Organisms: None Reported Past Surgical History: Coronary Bypass/CABG, Orthopedic Surgery Additional Past Surgical History / Comment(s): screws in right knee Past Anesthesia/Blood Transfusion Reactions: No Reported Reaction Past Psychological History: No Psychological Hx Reported Smoking Status: Former smoker Past Alcohol Use History: None Reported Past Drug Use History: None Reported - Past Family History Father Additional Family Medical History / Comment(s): of throat cancer Mother Additional Family Medical History / Comment(s): fell and broke hip then Medications and Allergies Home Medications Medication Instructions Recorded Confirmed Type Atorvastatin Calcium [Lipitor] 80 mg PO W/SUPPER 03/28/21 06/01/23 History Ferrous Sulfate [Iron (65 MG 325 mg PO DAILY 03/28/21 06/01/23 History Elemental)] allopurinoL [Zyloprim] 300 mg PO HS 03/28/21 06/01/23 History calcitrioL [Calcitriol] 0.25 mcg PO SUWE 03/28/21 06/01/23 History Aspirin 81 mg PO DAILY 01/31/22 06/01/23 History Metoprolol Succinate [Metoprolol 25 mg PO HS 01/31/22 06/01/23 History Succinate ER] Bosutinib [Bosulif] 200 mg PO W/SUPPER 07/28/22 06/01/23 History lisinopriL [Zestril] 2.5 mg PO DAILY 07/28/22 06/01/23 History Ergocalciferol (Vitamin D2) 1,250 mcg PO Q14D 06/01/23 06/01/23 History [Drisdol (50,000 Iu)] Furosemide [Lasix] 40 mg PO DAILY 06/01/23 06/01/23 History Levocetirizine Dihydrochloride 2.5 mg PO HS 06/01/23 06/01/23 History [Xyzal] Potassium Chloride ER [K-Dur 10] 10 meq PO DAILY 06/01/23 06/01/23 History Allergies Allergy/AdvReac Type Severity Reaction Status Date / Time albuterol [From DuoNeb] Allergy Chest Verified 06/01/23 16:10 Pain/Heart Failure ipratropium [From DuoNeb] Allergy Chest Verified 06/01/23 16:10 Pain/Heart Failure Physical Exam Vitals: Vital Signs Temp Pulse Pulse Resp BP BP BP 06/02/23 10:34 97.6 F 53 L 16 92/46 06/02/23 08:59 54 L 101/54 06/02/23 02:00 97.7 F 59 L 16 102/61 06/01/23 20:00 97.5 F L 70 16 120/73 06/01/23 19:15 69 14 95/49 06/01/23 12:39 97.9 F 56 L 20 107/62 Pulse Ox 06/02/23 10:34 94 L 06/02/23 08:59 94 L 06/02/23 02:00 96 06/01/23 20:00 95 06/01/23 19:15 94 L 06/01/23 12:39 97 Intake and Output 06/01/23 06/02/23 06/02/23 22:59 06:59 14:59 Intake Total 590 120 Output Total 200 Balance 390 120 Intake: Oral 590 120 Output: Urine 200 Other: Voiding Method Toilet Urinal # Voids 2 Weight 77.111 kg - Constitutional General appearance: average body habitus, no acute distress - EENT Eyes: anicteric sclerae ENT: hearing grossly normal - Respiratory Respiratory: bilateral: CTA - Cardiovascular Rhythm: regular Heart sounds: normal: S1, S2 - Gastrointestinal General gastrointestinal: soft, no tenderness - Integumentary Integumentary: no cyanotic - Neurologic grossly intact - Musculoskeletal Musculoskeletal: strength equal bilaterally - Psychiatric Psychiatric: A&O x's 3, appropriate affect, intact judgment & insight Results CBC & Chem 7: 06/01/23 12:46 06/02/23 08:37 Labs: Abnormal Lab Results - Last 24 Hours (Table) 06/01/23 06/01/23 06/01/23 Range/Units 12:46 12:46 21:42 RDW 17.9 H (11.5-15.5) % Plt Count 127 L (150-450) k/uL Lymphocytes # 0.9 L (1.0-4.8) k/uL Chloride 108 H (98-107) mmol/L Carbon Dioxide 16 L (22-30) mmol/L BUN 63 H (9-20) mg/dL Creatinine 4.11 H (0.66-1.25) mg/dL Glucose 103 H (74-99) mg/dL POC Glucose (mg/dL) 114 H (70-110) mg/dL Alkaline Phosphatase 139 H (38-126) U/L 06/02/23 Range/Units 08:37 RDW (11.5-15.5) % Plt Count (150-450) k/uL Lymphocytes # (1.0-4.8) k/uL Chloride 108 H (98-107) mmol/L Carbon Dioxide 18 L (22-30) mmol/L BUN 62 H (9-20) mg/dL Creatinine 3.85 H (0.66-1.25) mg/dL Glucose 101 H (74-99) mg/dL POC Glucose (mg/dL) (70-110) mg/dL Alkaline Phosphatase (38-126) U/L Assessment and Plan (1) Acute on chronic kidney failure Current Visit: Yes Status: Acute Priority: High Code(s): N17.9 - ACUTE KIDNEY FAILURE, UNSPECIFIED; N18.9 - CHRONIC KIDNEY DISEASE, UNSPECIFIED SNOMED Code(s): 541905169 (2) Leukemia Current Visit: Yes Status: Acute Priority: Medium Code(s): C95.90 - LEUKEMIA, UNSPECIFIED NOT HAVING ACHIEVED REMISSION SNOMED Code(s): 25376219 Plan: Acute on chronic kidney failure: -Hx of CKD. Creatinine typically in high 1 to low 2 range -CMP drawn in clinic revealed creatinine of 5.1. Upon presentation to the ER creatinine was noted at 4.11, GFR 13. -UA was negative for acute infection and hematuria. Creatinine improved today at 3.85. Nephrology following and believes acute kidney injury is related to ATN secondary to hypovolemia and use of diuretics and ANAYA inhibitors. Renal ultrasound has been ordered. CML: -Full history in HPI -Currently on treatment with Bosulif since 12/2021. Has tolerated well overall -Will hold treatment at this time until kidney function improves back to ba seline. If kidney function improves to baseline upon discharge patient may resume Bosulif. If remains elevated will continue to hold medication and schedule follow-up in clinic next week to recheck kidney function before resuming treatment. Pt updated on POC and verbalized understanding attests: I have performed a history and physical examination of this patient, developed impression and plan of care. Discussed with dictator. I agree with dictators note, documented as a scribe.
[2023-06-02] MEDS ORDERED: BOSUTINIB PO SCH (17:30)
[2023-06-02 18:11] LABS: Glucose,Whole Blood 115 mg/dL (70-110)
[2023-06-02 20:25] LABS: Glucose,Whole Blood 166 mg/dL (70-110)
[2023-06-02] MEDS: LORATADINE 10 MG TAB PO SCH (21:20)
[2023-06-02] MEDS: allopurinoL 300 MG TAB PO SCH (21:20)
[2023-06-02] MEDS: METOPROLOL SUCCINATE (ER) 25 MG TAB.ER.24H PO SCH (21:21)
[2023-06-03] MEDS: SODIUM CHLORIDE 0.9% 1,000 ML IV SCH (06:22)
[2023-06-03 07:47] LABS: Glucose,Whole Blood 83 mg/dL (70-110)
[2023-06-03 09:39] LABS: BUN/Creat Ratio 14.74 Ratio (12.00-20.00); Calcium 8.3 mg/dL (8.7-10.3); Carbon Dioxide 15.7 mmol/L (21.6-31.8); Chloride 110 mmol/L (96-109); Glucose 84 mg/dL (70-110); Magnesium 2.1 mg/dL (1.5-2.4); Potassium 4.6 mmol/L (3.5-5.5); Sodium 140 mmol/L (135-145)
[2023-06-03] MEDS: PANTOPRAZOLE 40 MG/10 ML VIAL IV SCH (09:59)
[2023-06-03] MEDS: ASPIRIN 81 MG PO SCH (09:59)
[2023-06-03] MEDS: FERROUS SULFATE 325 MG TAB PO SCH (09:59)
[2023-06-03] MEDS: SODIUM BICARBONATE TAB 650 MG TAB PO SCH ×2 (09:59→22:25)
[2023-06-03 10:21] LABS: Basophils # (A) 0.04 X 10*3/uL (0.00-0.10); Basophils % (A) 0.5 %; Eosinophils # (A) 0.44 X 10*3/uL (0.04-0.35); Eosinophils % (A) 5.3 %; HCT 35.5 % (39.6-50.0); HGB 11.2 d/dL (13.0-17.0); Lymphocytes # (A) 0.95 X 10*3/uL (0.90-5.00); Lymphocytes % (A) 11.4 %; MCH 29.9 pg (27.0-32.0); MCHC 31.5 d/dL (32.0-37.0); MCV 94.9 FL (80.0-97.0); Monocytes # (A) 0.99 X 10*3/uL (0.20-1.00); Monocytes % (A) 11.9 %; NRBC Per 100 WBC 0 X 10*3/uL (0.00-0.01); Neutrophils % (A) 69.9 %; Platelet Count 109 X 10*3/uL (140-440); RBC 3.74 X 10*6/uL (4.40-5.60); RDW 18.5 % (11.5-14.5)
[2023-06-03 12:32] LABS: Glucose,Whole Blood 136 mg/dL (70-110)
--- NOTE | 2023-06-03 14:54 | P.PN ---
Subjective Progress Note Date: 06/03/23 patient is a 72-year-old gentleman with past medical history significant for leukemia, CKD who presented to The ER because of abnormal blood work. Patient was sent in by his oncologist as patient had blood work drawn outpatient that showed patient to have decreased renal function. Patient denied any nausea, vomiting or abdominal pain. Denies any diarrhea. Denies any decreased ap petite. No complaint of fever or chills. Patient was worked up in the ER. Initial lab work done in the ER showed patient to be 7.8, hemoglobin 13.2, platelet count 127, sodium 140, potassium 4.4, BUN 63, creatinine 4.11 glucose 103 UA negative for any infection Patient was admitted to medicine service 06/03. Patient seen and examined. Labs this morning showed sodium 140, BUN 56, creatinine 3.8, denies any lethargy or weakness. Denies any lightheadedness. Vital signs stable REVIEW OF SYSTEMS: CONSTITUTIONAL: No fever, no malaise,. CARDIOVASCULAR: No chest pain, no palpitations, no syncope. PULMONARY: No shortness of breath, no cough, GASTROINTESTINAL: No diarrhea, no nausea, no vomiting, no abdominal pain. NEUROLOGICAL: No headaches, no weakness, PHYSICAL EXAMINATION: GENERAL: The patient is alert and oriented x3, not in any acute distress. Well developed, well nourished. HEENT: Pupils are round and equally reacting to light. EOMI. No scleral icterus. No conjunctival pallor. Normocephalic, atraumatic. No pharyngeal erythema. No thyromegaly. CARDIOVASCULAR: S1 and S2 present. No murmurs, rubs, or gallops. PULMONARY: Chest is clear to auscultation, no wheezing or crackles. ABDOMEN: Soft, nontender, nondistended, normoactive bowel sounds. No palpable organomegaly. MUSCULOSKELETAL: No joint swelling or deformity. EXTREMITIES: No cyanosis, clubbing, or pedal edema. NEUROLOGICAL: Gross neurological examination did not reveal any focal deficits. SKIN: No rashes. Assessment and plan Acute on chronic kidney disease Asymptomatic bradycardia Metabolic acidosis secondary to acute kidney injury and IV fluids. Chronic systolic CHF with ejection fraction of 40-45% with moderate tricuspid regurgitation and moderate to severe pulmonary hypertension. Chronic kidney disease mineral bone disease maintained on calcitriol. Coronary artery disease status post CABG in past. Hypertension Monitor vital signs Monitor CBC Monitor CMP Continue telemetry monitoring Re: Acute on chronic kidney disease, nephrology on board, continue gentle hydration, avoid nephrotoxic agents, Lasix and lisinopril and hold In regards to hypertension, continue Toprol Regards to hyperlipidemia continue Lipitor Cardiology evaluated the patient, recommended to continue patient on beta blockers telemetry ordered Labs and medication were reviewed.. Continue same treatment. Continue with symptomatic treatment. Resume home medication. Monitor labs and vitals. DVT and GI prophylaxis. Further recommendations as per clinical course of the jody ent Dictation was produced using [employer] dictation software. please excuse any grammatical, word or spelling errors. Objective - Vital Signs Vital signs: Vital Signs Temp 97.7 F 06/03/23 01:34 Pulse 51 L 06/03/23 07:31 Resp 18 06/03/23 07:31 BP 106/60 06/03/23 07:31 Pulse Ox 95 06/03/23 07:31 FiO2 Intake & Output 06/02/23 06/03/23 06/03/23 18:59 06:59 18:59 Intake Total 520 222 Output Total 450 200 Balance 70 22 Intake: Intake, IV Titration 400 Amount Sodium Chloride 0.9% 1, 400 000 ml @ 50 mls/hr IV . Q20H [facility] Rx#:[id number] Oral 120 222 Output: Urine 450 200 Other: Voiding Method Toilet Urinal - Labs CBC & Chem 7: 06/03/23 06:49 06/03/23 06:49 Labs: Abnormal Lab Results - Last 24 Hours (Table) 06/02/23 06/02/23 Range/Units 18:02 20:22 POC Glucose (mg/dL) 115 H 166 H (70-110) mg/dL
--- NOTE | 2023-06-03 15:34 | P.PN ---
Subjective Progress Note Date: 06/03/23 Follow-up for acute kidney injury. Urine output of 600 ML's in the last 24 hours. Hypotension today. Objective - Vital Signs Vital signs: Vital Signs Temp 97.7 F 06/03/23 01:34 Pulse 57 L 06/03/23 12:14 Resp 18 06/03/23 08:00 BP 101/53 06/03/23 12:14 Pulse Ox 97 06/03/23 12:14 FiO2 Intake & Output 06/02/23 06/03/23 06/03/23 18:59 06:59 18:59 Intake Total 520 222 Output Total 450 200 Balance 70 22 Intake: Intake, IV Titration 400 Amount Sodium Chloride 0.9% 1, 400 000 ml @ 50 mls/hr IV . Q20H [facility] Rx#:[id number] Oral 120 222 Output: Urine 450 200 Other: Voiding Method Toilet Toilet Urinal Urinal - Exam No acute distress S1-S2 heard Decreased breath sounds Trace edema - Labs CBC & Chem 7: 06/03/23 06:49 06/03/23 06:49 Labs: Abnormal Lab Results - Last 24 Hours (Table) 06/02/23 06/02/23 06/03/23 Range/Units 18:02 20:22 06:49 RBC (4.40-5.60) X 10*6/uL Hgb (13.0-17.0) d/dL Hct (39.6-50.0) % MCHC (32.0-37.0) d/dL RDW (11.5-14.5) % Plt Count (140-440) X 10*3/uL Eosinophils # (0.04-0.35) X 10*3/uL Chloride 110 H (96-109) mmol/L Carbon Dioxide 15.7 L (21.6-31.8) mmol/L Anion Gap 14.30 H (4.00-12.00) mmol/L BUN 56.0 H (9.0-27.0) mg/dL Creatinine 3.8 H (0.6-1.5) mg/dL Est GFR (CKD-EPI) 16 L (>=60) POC Glucose (mg/dL) 115 H 166 H (70-110) mg/dL Calcium 8.3 L (8.7-10.3) mg/dL 06/03/23 06/03/23 Range/Units 06:49 12:20 RBC 3.74 L (4.40-5.60) X 10*6/uL Hgb 11.2 L (13.0-17.0) d/dL Hct 35.5 L (39.6-50.0) % MCHC 31.5 L (32.0-37.0) d/dL RDW 18.5 H (11.5-14.5) % Plt Count 109 L (140-440) X 10*3/uL Eosinophils # 0.44 H (0.04-0.35) X 10*3/uL Chloride (96-109) mmol/L Carbon Dioxide (21.6-31.8) mmol/L Anion Gap (4.00-12.00) mmol/L BUN (9.0-27.0) mg/dL Creatinine (0.6-1.5) mg/dL Est GFR (CKD-EPI) (>=60) POC Glucose (mg/dL) 136 H (70-110) mg/dL Calcium (8.7-10.3) mg/dL Assessment and Plan Assessment: #1 acute kidney injury secondary to multifactorial ATN. -Baseline creatinine 2.2-2.4 MG per DL. -Urine analysis [place] -Renal ultrasound no hydronephrosis #2 chronic kidney disease stage IIIB suspected nephrosclerosis. #3 CHF with systolic dysfunction EF of 40-45%. #4 hypotensive episodes. #5 metabolic acidosis secondary to acute kidney injury Plan: #1 renal function high but stable. #2 currently on fluids, continue. Agree with holding antihypertensives including diuretics. #3 add midodrine for hemodynamic support. #4 check uric acid with history of leukemia #5 avoid nephrotoxic agents and hypotensive episodes. #6 labs in the morning
--- NOTE | 2023-06-03 17:12 | P.PN ---
Subjective Progress Note Date: 06/03/23 HISTORY OF PRESENT ILLNESS: This is a 72-year-old male with a past medical history significant for coronary artery disease with previous CABG, ischemic cardiomyopathy, valvular heart disease, hypertension, hyperlipidemia, and leukemia. Patient follows in the office with Dr. Ngo. We have been asked to see the patient in consultation for bradycardia. Patient examined at the bedside. Patient is sitting on the side of the bed eating lunch. Patient states he had outpatient labs drawn and was told to come to the emergency room secondary to abnormal kidney function. He has been evaluated by nephrology. The patient currently denies chest pain or pressure. He denies shortness of breath. Patient has documented heart rates in the 50s. The patient did not have an EKG completed and is currently not on telemetry monitoring. The patient denies any dizziness or lightheadedness. He denies any episodes of syncope. Blood pressure is stable with a systolic in the 90s. 06/03/2023 He is feeling better. Denies any chest pain or pressure. No shortness of breath. No edema. EKG showed sinus bradycardia with heart rate 51, RBBB. Denies any dizziness or lightheadedness. PHYSICAL EXAM: VITAL SIGNS: Reviewed. GENERAL: Well-developed in no acute distress. HEENT: Head is normocephalic. Pupils are equal, round. Sclerae anicteric. Mucous membranes of the mouth are moist. Neck supple. No JVD or thyromegaly LUNGS: Respirations even and unlabored. Lungs essentially clear to auscultation bilaterally. HEART: Bradycardic. Regular rate and rhythm. S1 and S2 heard. Systolic murmur noted ABDOMEN: Soft. Nondistended. Nontender. EXTREMITIES: Normal range of motion. No clubbing or cyanosis. Peripheral pulses intact. No lower extremity edema NEUROLOGIC: Awake and alert. Oriented x 3. ASSESSMENT: Acute on chronic kidney disease Asymptomatic bradycardia Coronary artery disease with previous CABG Ischemic cardiomyopathy, ejection fraction 40% Valvular heart disease Hypertension Hyperlipidemia Leukemia Diabetes PLAN: Continue with current dose of metoprolol succinate. Documented heart rates in the 50s. Patient remains asymptomatic. Continue current regimen. No further cardiac work-up indicated at this time. Cardiology to sign off. Call with any questions or concerns. Follow up in office 1-[address] Ngo. Nurse practitioner note has been reviewed by physician. Signing provider agrees with the documented findings, assessment, and plan of care. Objective - Vital Signs Vital signs: Vital Signs Temp 97.7 F 06/03/23 01:34 Pulse 57 L 06/03/23 12:14 Resp 18 06/03/23 08:00 BP 101/53 06/03/23 12:14 Pulse Ox 97 06/03/23 12:14 FiO2 Intake & Output 06/02/23 06/03/23 06/03/23 18:59 06:59 18:59 Intake Total 520 222 Output Total 450 200 Balance 70 22 Intake: Intake, IV Titration 400 Amount Sodium Chloride 0.9% 1, 400 000 ml @ 50 mls/hr IV . Q20H [facility] Rx#:[id number] Oral 120 222 Output: Urine 450 200 Other: Voiding Method Toilet Toilet Urinal Urinal - Labs CBC & Chem 7: 06/03/23 06:49 06/03/23 06:49 Labs: Abnormal Lab Results - Last 24 Hours (Table) 06/02/23 06/02/23 06/03/23 Range/Units 18:02 20:22 06:49 RBC (4.40-5.60) X 10*6/uL Hgb (13.0-17.0) d/dL Hct (39.6-50.0) % MCHC (32.0-37.0) d/dL RDW (11.5-14.5) % Plt Count (140-440) X 10*3/uL Eosinophils # (0.04-0.35) X 10*3/uL Chloride 110 H (96-109) mmol/L Carbon Dioxide 15.7 L (21.6-31.8) mmol/L Anion Gap 14.30 H (4.00-12.00) mmol/L BUN 56.0 H (9.0-27.0) mg/dL Creatinine 3.8 H (0.6-1.5) mg/dL Est GFR (CKD-EPI) 16 L (>=60) POC Glucose (mg/dL) 115 H 166 H (70-110) mg/dL Calcium 8.3 L (8.7-10.3) mg/dL 06/03/23 06/03/23 Range/Units 06:49 12:20 RBC 3.74 L (4.40-5.60) X 10*6/uL Hgb 11.2 L (13.0-17.0) d/dL Hct 35.5 L (39.6-50.0) % MCHC 31.5 L (32.0-37.0) d/dL RDW 18.5 H (11.5-14.5) % Plt Count 109 L (140-440) X 10*3/uL Eosinophils # 0.44 H (0.04-0.35) X 10*3/uL Chloride (96-109) mmol/L Carbon Dioxide (21.6-31.8) mmol/L Anion Gap (4.00-12.00) mmol/L BUN (9.0-27.0) mg/dL Creatinine (0.6-1.5) mg/dL Est GFR (CKD-EPI) (>=60) POC Glucose (mg/dL) 136 H (70-110) mg/dL Calcium (8.7-10.3) mg/dL
[2023-06-03 17:16] LABS: Glucose,Whole Blood 100 mg/dL (70-110)
[2023-06-03] MEDS: MIDODRINE 5 MG TAB PO SCH (17:33)
[2023-06-03] MEDS: ATORVASTATIN 80 MG TAB PO SCH (17:33)
[2023-06-03 20:32] LABS: Glucose,Whole Blood 133 mg/dL (70-110)
[2023-06-03] MEDS: METOPROLOL SUCCINATE (ER) 25 MG TAB.ER.24H PO SCH (22:25)
[2023-06-03] MEDS: allopurinoL 300 MG TAB PO SCH (22:25)
[2023-06-03] MEDS: LORATADINE 10 MG TAB PO SCH (22:25)
[2023-06-04] MEDS: MIDODRINE 5 MG TAB PO SCH ×3 (06:24→16:50)
[2023-06-04] MEDS: SODIUM CHLORIDE 0.9% 1,000 ML IV SCH (06:24)
[2023-06-04 07:41] LABS: Glucose,Whole Blood 87 mg/dL (70-110)
[2023-06-04 08:48] LABS: Anisocytosis Slight; HCT 35.7 % (39.0-53.0); HGB 11.4 gm/dL (13.0-17.5); Hypochromasia Moderate; MCH 31.1 pg (25.0-35.0); MCHC 31.8 g/dL (31.0-37.0); MCV 97.7 fL (80.0-100.0); Macrocytosis Slight; Platelet Count 126 k/uL (150-450); RBC 3.65 m/uL (4.30-5.90); RDW 17.9 % (11.5-15.5); WBC 8.7 k/uL (3.8-10.6)
[2023-06-04 09:04] LABS: ALT 11 U/L (4-49); AST 24 U/L (17-59); African American GFR (CKD) 23 (>60 ml/min/1.73 sqM); Albumin/Globulin Ratio 1.1; Alkaline Phosphatase 106 U/L (38-126); Anion Gap 11 mmol/L; Blood Urea Nitrogen 47 mg/dL (9-20); Calcium 8.1 mg/dL (8.4-10.2); Carbon Dioxide 15 mmol/L (22-30); Chloride 114 mmol/L (98-107); Globulin 2.8 g/dL; Glucose 85 mg/dL (74-99); Non-African American GFR(CKD) 20 (>60 ml/min/1.73 sqM); Potassium 4.1 mmol/L (3.5-5.1); Sodium 140 mmol/L (137-145); Total Bilirubin 0.8 mg/dL (0.2-1.3); Total Protein 5.8 g/dL (6.3-8.2); Uric Acid 4.7 mg/dL (3.5-8.5)
[2023-06-04] MEDS: FERROUS SULFATE 325 MG TAB PO SCH (09:38)
[2023-06-04] MEDS: SODIUM BICARBONATE TAB 650 MG TAB PO SCH ×2 (09:38→20:32)
[2023-06-04] MEDS: ASPIRIN 81 MG PO SCH (09:38)
[2023-06-04] MEDS: PANTOPRAZOLE 40 MG/10 ML VIAL IV SCH (09:39)
[2023-06-04 12:01] LABS: Glucose,Whole Blood 118 mg/dL (70-110)
--- NOTE | 2023-06-04 13:02 | P.PN ---
Subjective Progress Note Date: 06/04/23 patient is a 72-year-old gentleman with past medical history significant for leukemia, CKD who presented to The ER because of abnormal blood work. Patient was sent in by his oncologist as patient had blood work drawn outpatient that showed patient to have decreased renal function. Patient denied any nausea, vomiting or abdominal pain. Denies any diarrhea. Denies any decreased ap petite. No complaint of fever or chills. Patient was worked up in the ER. Initial lab work done in the ER showed patient to be 7.8, hemoglobin 13.2, platelet count 127, sodium 140, potassium 4.4, BUN 63, creatinine 4.11 glucose 103 UA negative for any infection Patient was admitted to medicine service 06/03. Patient seen and examined. Labs this morning showed sodium 140, BUN 56, creatinine 3.8, denies any lethargy or weakness. Denies any lightheadedness. Vital signs stable 06/04. Patient seen and examined. Labs were done this morning showed the pubis 8.7, hemoglobin 11.4, platelet count 1.6, sodium 140, potassium 4.1, BUN 47, creatinine 2.97 REVIEW OF SYSTEMS: CONSTITUTIONAL: No fever, no malaise,. CARDIOVASCULAR: No chest pain, no palpitations, no syncope. PULMONARY: No shortness of breath, no cough, GASTROINTESTINAL: No diarrhea, no nausea, no vomiting, no abdominal pain. NEUROLOGICAL: No headaches, no weakness, PHYSICAL EXAMINATION: GENERAL: The patient is alert and oriented x3, not in any acute distress. Well developed, well nourished. HEENT: Pupils are round and equally reacting to light. EOMI. No scleral icterus. No conjunctival pallor. Normocephalic, atraumatic. No pharyngeal erythema. No thyromegaly. CARDIOVASCULAR: S1 and S2 present. No murmurs, rubs, or gallops. PULMONARY: Chest is clear to auscultation, no wheezing or crackles. ABDOMEN: Soft, nontender, nondistended, normoactive bowel sounds. No palpable organomegaly. MUSCULOSKELETAL: No joint swelling or deformity. EXTREMITIES: No cyanosis, clubbing, or pedal edema. NEUROLOGICAL: Gross neurological examination did not reveal any focal deficits. SKIN: No rashes. Assessment and plan Acute on chronic kidney disease Asymptomatic bradycardia Metabolic acidosis secondary to acute kidney injury and IV fluids. Chronic systolic CHF with ejection fraction of 40-45% with moderate tricuspid regurgitation and moderate to severe pulmonary hypertension. Chronic kidney disease mineral bone disease maintained on calcitriol. Coronary artery disease status post CABG in past. Hypertension Monitor vital signs Monitor CBC Monitor CMP Continue telemetry monitoring Re: Acute on chronic kidney disease, nephrology on board, continue gentle hydration, avoid nephrotoxic agents, Lasix and lisinopril and hold, uric acid level was normal In regards to hypertension, continue Toprol Regards to hyperlipidemia continue Lipitor Cardiology evaluated the patient, recommended to continue patient on beta blockers telemetry ordered Labs and medication were reviewed.. Continue same treatment. Continue with symptomatic treatment. Resume home medication. Monitor labs and vitals. DVT and GI prophylaxis. Further recommendations as per clinical course of the p atient Dictation was produced using [employer] dictation software. please excuse any grammatical, word or spelling errors. Objective - Vital Signs Vital signs: Vital Signs Temp 97.4 F L 06/04/23 11:33 Pulse 67 06/04/23 11:33 Resp 17 06/04/23 11:33 BP 154/68 06/04/23 11:33 Pulse Ox 91 L 06/04/23 11:33 FiO2 Intake & Output 06/03/23 06/04/23 06/04/23 18:59 06:59 18:59 Intake Total 360 Output Total 600 100 Balance -240 -100 Intake: Oral 360 Output: Urine 600 100 Other: Voiding Method Toilet Toilet Urinal Urinal - Labs CBC & Chem 7: 06/04/23 08:13 06/04/23 08:13 Labs: Abnormal Lab Results - Last 24 Hours (Table) 06/03/23 06/04/23 06/04/23 Range/Units 20:30 08:13 08:13 RBC 3.65 L (4.30-5.90) m/uL Hgb 11.4 L (13.0-17.5) gm/dL Hct 35.7 L (39.0-53.0) % RDW 17.9 H (11.5-15.5) % Plt Count 126 L (150-450) k/uL Chloride 114 H (98-107) mmol/L Carbon Dioxide 15 L (22-30) mmol/L BUN 47 H (9-20) mg/dL Creatinine 2.97 H (0.66-1.25) mg/dL POC Glucose (mg/dL) 133 H (70-110) mg/dL Calcium 8.1 L (8.4-10.2) mg/dL Total Protein 5.8 L (6.3-8.2) g/dL Albumin 3.0 L (3.5-5.0) g/dL 06/04/23 Range/Units 11:39 RBC (4.30-5.90) m/uL Hgb (13.0-17.5) gm/dL Hct (39.0-53.0) % RDW (11.5-15.5) % Plt Count (150-450) k/uL Chloride (98-107) mmol/L Carbon Dioxide (22-30) mmol/L BUN (9-20) mg/dL Creatinine (0.66-1.25) mg/dL POC Glucose (mg/dL) 118 H (70-110) mg/dL Calcium (8.4-10.2) mg/dL Total Protein (6.3-8.2) g/dL Albumin (3.5-5.0) g/dL
--- NOTE | 2023-06-04 16:00 | P.PN ---
Subjective Progress Note Date: 06/04/23 Follow-up for acute kidney injury. Urine output of 700 ML's in the last 24 hours. Blood pressures better. Objective - Vital Signs Vital signs: Vital Signs Temp 97.4 F L 06/04/23 11:33 Pulse 67 06/04/23 11:33 Resp 17 06/04/23 11:33 BP 154/68 06/04/23 11:33 Pulse Ox 91 L 06/04/23 11:33 FiO2 Intake & Output 06/03/23 06/04/23 06/04/23 18:59 06:59 18:59 Intake Total 360 Output Total 600 100 Balance -240 -100 Intake: Oral 360 Output: Urine 600 100 Other: Voiding Method Toilet Toilet Urinal Urinal - Exam No acute distress S1-S2 heard Decreased breath sounds Trace edema - Labs CBC & Chem 7: 06/04/23 08:13 06/04/23 08:13 Labs: Abnormal Lab Results - Last 24 Hours (Table) 06/03/23 06/04/23 06/04/23 Range/Units 20:30 08:13 08:13 RBC 3.65 L (4.30-5.90) m/uL Hgb 11.4 L (13.0-17.5) gm/dL Hct 35.7 L (39.0-53.0) % RDW 17.9 H (11.5-15.5) % Plt Count 126 L (150-450) k/uL Chloride 114 H (98-107) mmol/L Carbon Dioxide 15 L (22-30) mmol/L BUN 47 H (9-20) mg/dL Creatinine 2.97 H (0.66-1.25) mg/dL POC Glucose (mg/dL) 133 H (70-110) mg/dL Calcium 8.1 L (8.4-10.2) mg/dL Total Protein 5.8 L (6.3-8.2) g/dL Albumin 3.0 L (3.5-5.0) g/dL 06/04/23 Range/Units 11:39 RBC (4.30-5.90) m/uL Hgb (13.0-17.5) gm/dL Hct (39.0-53.0) % RDW (11.5-15.5) % Plt Count (150-450) k/uL Chloride (98-107) mmol/L Carbon Dioxide (22-30) mmol/L BUN (9-20) mg/dL Creatinine (0.66-1.25) mg/dL POC Glucose (mg/dL) 118 H (70-110) mg/dL Calcium (8.4-10.2) mg/dL Total Protein (6.3-8.2) g/dL Albumin (3.5-5.0) g/dL Assessment and Plan Assessment: #1 acute kidney injury secondary to multifactorial ATN. -Baseline creatinine 2.2-2.4 MG per DL. -Urine analysis [place] -Renal ultrasound no hydronephrosis #2 chronic kidney disease stage IIIB suspected nephrosclerosis. #3 CHF with systolic dysfunction EF of 40-45%. #4 hypotensive episodes. #5 metabolic acidosis secondary to acute kidney injury Plan: #1 renal function high but stable. #2 currently on fluids, continue. Agree with holding antihypertensives including diuretics. #3 added midodrine yesterday for hemodynamic support. #4 uric acid within normal limits. #5 avoid nephrotoxic agents and hypotensive episodes. #6 labs in the morning
[2023-06-04] MEDS: ATORVASTATIN 80 MG TAB PO SCH (16:50)
[2023-06-04 17:08] LABS: Glucose,Whole Blood 100 mg/dL (70-110)
[2023-06-04 20:27] LABS: Glucose,Whole Blood 116 mg/dL (70-110)
[2023-06-04] MEDS: allopurinoL 300 MG TAB PO SCH (20:32)
[2023-06-04] MEDS: LORATADINE 10 MG TAB PO SCH (20:32)
[2023-06-04] MEDS: METOPROLOL SUCCINATE (ER) 25 MG TAB.ER.24H PO SCH (20:32)
[2023-06-05] MEDS: SODIUM CHLORIDE 0.9% 1,000 ML IV SCH (05:55)
[2023-06-05 08:11] LABS: Glucose,Whole Blood 80 mg/dL (70-110)
[2023-06-05 08:22] VITALS: RESP 18
--- NOTE | 2023-06-05 08:36 | P.PN ---
Subjective Patient is seen in follow-up for acute kidney injury on chronic kidney disease. Renal function improved from admission. Receiving IV fluids. Has been voiding. No vomiting or diarrhea. Wants to go home. Vital signs are stable. General: No acute distress. HEENT: Head exam is unremarkable. LUNGS: No audible rhonchi or wheezes. HEART: Rate and Rhythm are regular. ABDOMEN: Nontender. EXTREMITITES: No edema. Objective - Vital Signs Vital signs: Vital Signs Temp 97.4 F L 06/05/23 08:00 Pulse 75 06/05/23 08:00 Resp 18 06/05/23 08:00 BP 114/66 06/05/23 08:00 Pulse Ox 91 L 06/05/23 08:00 FiO2 Intake & Output 06/04/23 06/05/23 06/05/23 18:59 06:59 18:59 Intake Total 360 Output Total 300 Balance 360 -300 Intake: Oral 360 Output: Urine 300 Other: Voiding Method Toilet Urinal # Voids 300 - Labs CBC & Chem 7: 06/04/23 08:13 06/04/23 08:13 Labs: Abnormal Lab Results - Last 24 Hours (Table) 06/04/23 06/04/23 06/04/23 Range/Units 08:13 08:13 11:39 RBC 3.65 L (4.30-5.90) m/uL Hgb 11.4 L (13.0-17.5) gm/dL Hct 35.7 L (39.0-53.0) % RDW 17.9 H (11.5-15.5) % Plt Count 126 L (150-450) k/uL Chloride 114 H (98-107) mmol/L Carbon Dioxide 15 L (22-30) mmol/L BUN 47 H (9-20) mg/dL Creatinine 2.97 H (0.66-1.25) mg/dL POC Glucose (mg/dL) 118 H (70-110) mg/dL Calcium 8.1 L (8.4-10.2) mg/dL Total Protein 5.8 L (6.3-8.2) g/dL Albumin 3.0 L (3.5-5.0) g/dL 06/04/23 Range/Units 20:25 RBC (4.30-5.90) m/uL Hgb (13.0-17.5) gm/dL Hct (39.0-53.0) % RDW (11.5-15.5) % Plt Count (150-450) k/uL Chloride (98-107) mmol/L Carbon Dioxide (22-30) mmol/L BUN (9-20) mg/dL Creatinine (0.66-1.25) mg/dL POC Glucose (mg/dL) 116 H (70-110) mg/dL Calcium (8.4-10.2) mg/dL Total Protein (6.3-8.2) g/dL Albumin (3.5-5.0) g/dL Assessment and Plan Plan: Assessment: 1. Acute kidney injury secondary to ATN secondary to hypovolemia further worsened with the use of diuretics and ANAYA inhibitor. Creatinine 4.11 on admiss ion - 2.97 yesterday. UA benign. No hydronephrosis noted on kidney ultrasound. 2. Chronic kidney disease stage IIIB with baseline creatinine 2.2-2.4 secondary to nephrosclerosis and diabetic kidney disease. 3. Metabolic acidosis secondary to acute kidney injury and IV fluids. On oral bicarbonate. 4. Chronic systolic CHF with ejection fraction of 40-45% with moderate tricuspid regurgitation and moderate to severe pulmonary hypertension. 5. Chronic kidney disease mineral bone disease maintained on calcitriol. 6. Coronary artery disease status post CABG in past. 7. Diabetes. Plan: Hep-Lock IV fluids. Encouraged oral intake. Avoid nephrotoxins. Continue to monitor renal function and urine output. Hold midodrine for systolic blood pressure above 110. Resume Lasix in the next 24-48 hours. dvised patient to monitor his weight closely at home and to notify physician if develops edema or gains more than 3 pounds in 1 week duration. Follow-up outpatient 1 week post discharge.
[2023-06-05 09:42] LABS: African American GFR (CKD) 28 (>60 ml/min/1.73 sqM); Anion Gap 13 mmol/L; Blood Urea Nitrogen 41 mg/dL (9-20); Calcium 8.7 mg/dL (8.4-10.2); Carbon Dioxide 15 mmol/L (22-30); Chloride 112 mmol/L (98-107); Glucose 96 mg/dL (74-99); Non-African American GFR(CKD) 25 (>60 ml/min/1.73 sqM); Potassium 4.6 mmol/L (3.5-5.1); Sodium 140 mmol/L (137-145)
[2023-06-05] MEDS: ASPIRIN 81 MG PO SCH (09:52)
[2023-06-05] MEDS: FERROUS SULFATE 325 MG TAB PO SCH (09:52)
[2023-06-05] MEDS: PANTOPRAZOLE 40 MG/10 ML VIAL IV SCH (09:52)
[2023-06-05] MEDS: MIDODRINE 5 MG TAB PO SCH ×2 (09:52→13:15)
[2023-06-05] MEDS: SODIUM BICARBONATE TAB 650 MG TAB PO SCH (09:52)
[2023-06-05 12:23] LABS: Glucose,Whole Blood 111 mg/dL (70-110)
--- NOTE | 2023-06-05 12:33 | P.DS ---
Providers Date of admission: 06/01/23 15:25 Expected date of discharge: 06/05/23 Attending physician: Tabitha Lopez Consults: 06/01/23 17:42 Consult Physician Urgent Consulting Provider: Joel Alston Consult Reason/Comments: Leukemia patient Do you want consulting provider notified?: Yes Consult Physician Urgent Consulting Provider: Starr Freeman Consult Reason/Comments: HOA Do you want consulting provider notified?: Yes Primary care physician: Eyal Mccauley Hospital Course: Discharge diagnoses; Acute on chronic kidney disease Asymptomatic bradycardia Metabolic acidosis secondary to acute kidney injury and IV fluids. Chronic systolic CHF with ejection fraction of 40-45% with moderate tricuspid regurgitation and moderate to severe pulmonary hypertension. Chronic kidney disease mineral bone disease maintained on calcitriol. Coronary artery disease status post CABG in past. Hypertension Hospital course; patient is a 72-year-old gentleman with past medical history significant for leukemia, CKD who presented to The ER because of abnormal blood work. Patient was sent in by his oncologist as patient had blood work drawn outpatient that showed patient to have decreased renal function. Patient denied any nausea, vomiting or abdominal pain. Denies any diarrhea. Denies any decreased appetite. No complaint of fever or chills. Patient was worked up in the ER. Initial lab work done in the ER showed patient to be 7.8, hemoglobin 13.2, platelet count 127, sodium 140, potassium 4.4, BUN 63, creatinine 4.11 glucose 103 UA negative for any infection Patient was admitted to medicine service 06/03. Patient seen and examined. Labs this morning showed sodium 140, BUN 56, creatinine 3.8, denies any lethargy or weakness. Denies any lightheadedness. Vital signs stable 06/04. Patient seen and examined. Labs were done this morning showed the pubis 8.7, hemoglobin 11.4, platelet count 1.6, sodium 140, potassium 4.1, BUN 47, creatinine 2.97 06/05. Patient seen and examined. Nephrology recommended resuming Lasix and lisinopril in 1-2 days. Patient renal function have improved. Being discharged in stable condition PHYSICAL EXAMINATION: GENERAL: The patient is alert and oriented x3, not in any acute distress. Chronically ill-looking HEENT: Pupils are round and equally reacting to light. EOMI. No scleral icterus. No conjunctival pallor. Normocephalic, atraumatic. No pharyngeal erythema. No thyromegaly. CARDIOVASCULAR: S1 and S2 present. No murmurs, rubs, or gallops. PULMONARY: Chest is clear to auscultation, no wheezing or crackles. ABDOMEN: Soft, nontender, nondistended, normoactive bowel sounds. No palpable organomegaly. MUSCULOSKELETAL: No joint swelling or deformity. EXTREMITIES: No cyanosis, clubbing, or pedal edema. NEUROLOGICAL: Gross neurological examination did not reveal any focal deficits. SKIN: No rashes. Dictation was produced using [employer] dictation software. please excuse any grammatical, word or spelling errors. Plan - Discharge Summary Discharge Rx Participant: No New Discharge Prescriptions: Continue Ferrous Sulfate [Iron (65 MG Elemental)] 325 mg PO DAILY calcitrioL [Calcitriol] 0.25 mcg PO SUWE Atorvastatin Calcium [Lipitor] 80 mg PO W/SUPPER Metoprolol Succinate [Metoprolol Succinate ER] 25 mg PO HS lisinopriL [Zestril] 2.5 mg PO DAILY Bosutinib [Bosulif] 200 mg PO W/SUPPER Furosemide [Lasix] 40 mg PO DAILY Ergocalciferol (Vitamin D2) [Drisdol (50,000 Iu)] 1,250 mcg PO Q14D allopurinoL [Zyloprim] 300 mg PO HS Aspirin 81 mg PO DAILY Levocetirizine Dihydrochloride [Xyzal] 2.5 mg PO HS Discontinued Potassium Chloride ER [K-Dur 10] 10 meq PO DAILY Discharge Medication List Atorvastatin Calcium [Lipitor] 80 mg PO W/SUPPER 03/28/21 [History] Ferrous Sulfate [Iron (65 MG Elemental)] 325 mg PO DAILY 03/28/21 [History] allopurinoL [Zyloprim] 300 mg PO HS 03/28/21 [History] calcitrioL [Calcitriol] 0.25 mcg PO SUWE 03/28/21 [History] Aspirin 81 mg PO DAILY 01/31/22 [History] Metoprolol Succinate [Metoprolol Succinate ER] 25 mg PO HS 01/31/22 [History] Bosutinib [Bosulif] 200 mg PO W/SUPPER 07/28/22 [History] lisinopriL [Zestril] 2.5 mg PO DAILY 07/28/22 [History] Ergocalciferol (Vitamin D2) [Drisdol (50,000 Iu)] 1,250 mcg PO Q14D 06/01/23 [History] Furosemide [Lasix] 40 mg PO DAILY 06/01/23 [History] Levocetirizine Dihydrochloride [Xyzal] 2.5 mg PO HS 06/01/23 [History] Follow up Appointment(s)/Referral(s): Eyal Mccauley MD [Primary Care Provider] - 1-2 days Activity/Diet/Wound Care/Special Instructions: Resume Lasix and lisinopril from 06/08/23 Discharge Disposition: HOME SELF-CARE
[2023-06-05 13:15] VITALS: BP 113/64; PULSE 63; TEMP 98
[2023-06-05] MEDS ORDERED: SODIUM BICARB 8.4% 50 ML SYR (1 MEQ/ML) IV STA (14:35)
--- NOTE | 2023-06-05 15:53 | P.PN ---
Subjective Progress Note Date: 06/05/23 Principal diagnosis: HOA/CKD at today's visit patient is resting comfortably in bed. Patient is reporting feeling well. Counts stable. Creatinine improved to 2.50 today. Continue to hold Bosulif Objective - Vital Signs Vital signs: Vital Signs Temp 98 F 06/05/23 12:16 Pulse 63 06/05/23 12:16 Resp 18 06/05/23 12:16 BP 113/64 06/05/23 12:16 Pulse Ox 92 L 06/05/23 13:14 FiO2 Intake & Output 06/04/23 06/05/23 06/05/23 18:59 06:59 18:59 Intake Total 360 Output Total 300 Balance 360 -300 Intake: Oral 360 Output: Urine 300 Other: Voiding Method Toilet Urinal # Voids 300 - Constitutional General appearance: Present: average body habitus, no acute distress - EENT Eyes: Present: anicteric sclerae, EOMI ENT: Present: hearing grossly normal - Respiratory Details: breathing is even and unlabored - Cardiovascular Details: skin warm and dry - Integumentary Integumentary: Absent: cyanotic, jaundiced - Neurologic Neurologic Comment(s): grossly intact - Musculoskeletal Musculoskeletal: Present: strength equal bilaterally - Psychiatric Psychiatric: Present: A&O x's 3, appropriate affect, intact judgment & insight - Labs CBC & Chem 7: 06/04/23 08:13 06/05/23 08:46 Labs: Abnormal Lab Results - Last 24 Hours (Table) 06/04/23 06/05/23 06/05/23 Range/Units 20:25 08:46 12:21 Chloride 112 H (98-107) mmol/L Carbon Dioxide 15 L (22-30) mmol/L BUN 41 H (9-20) mg/dL Creatinine 2.50 H (0.66-1.25) mg/dL POC Glucose (mg/dL) 116 H 111 H (70-110) mg/dL Assessment and Plan (1) Acute on chronic kidney failure Status: Acute Priority: High Code(s): N17.9 - ACUTE KIDNEY FAILURE, UNSPECIFIED; N18.9 - CHRONIC KIDNEY DISEASE, UNSPECIFIED SNOMED Code(s): 699257867 (2) Leukemia Status: Acute Priority: Medium Code(s): C95.90 - LEUKEMIA, UNSPECIFIED NOT HAVING ACHIEVED REMISSION SNOMED Code(s): 17985359 Plan: Acute on chronic kidney failure: -Hx of CKD. Creatinine typically in high 1 to low 2 range -CMP drawn in clinic revealed creatinine of 5.1. Upon presentation to the ER creatinine was noted at 4.11, GFR 13. -UA was negative for acute infection and hematuria. Creatinine improved today at 2.50. Nephrology following and believes acute kidney injury is related to ATN secondary to hypovolemia and use of diuretics and ANAYA inhibitors. CML: -Full history in HPI -Currently on treatment with Bosulif since 12/2021. Has tolerated well overall -Will hold treatment at this time until kidney function improves back to baseline. If kidney function improves to baseline upon discharge patient may resume Bosulif. If remains elevated will continue to hold medication and schedule follow-up in clinic upon discharge to recheck kidney function before resuming treatment. Pt updated on POC and verbalized understanding
[2023-06-05] MEDS ORDERED: SODIUM BICARBONATE TAB 650 MG TAB PO SCH (16:00)
== END 2023-06-05 15:11 | disposition home or self-care (01) | DRG 683 ==
LOC: EC 12:11 → 5NMEDONC 15:25
PROVIDERS: ADMIT Hospitalist; ATTEND Hospitalist
DX: N17.0 Acute kidney failure with tubular necrosis (principal); C95.90 Leukemia, unspecified not having achieved remission; I13.0 Hypertensive heart and chronic kidney disease with heart failure and stage 1 through stage 4 chronic kidney disease, or unspecified chronic kidney disease; E87.20 Acidosis, unspecified; I50.22 Chronic systolic (congestive) heart failure; R00.1 Bradycardia, unspecified; I25.5 Ischemic cardiomyopathy; N18.32 Chronic kidney disease, stage 3b; E78.5 Hyperlipidemia, unspecified; I25.10 Atherosclerotic heart disease of native coronary artery without angina pectoris; Z95.1 Presence of aortocoronary bypass graft; T50.2X5A Adverse effect of carbonic-anhydrase inhibitors, benzothiadiazides and other diuretics, initial encounter; T50.905A Adverse effect of unspecified drugs, medicaments and biological substances, initial encounter; I95.9 Hypotension, unspecified; E11.22 Type 2 diabetes mellitus with diabetic chronic kidney disease; E11.51 Type 2 diabetes mellitus with diabetic peripheral angiopathy without gangrene; I27.20 Pulmonary hypertension, unspecified; M89.8X9 Other specified disorders of bone, unspecified site; I45.10 Unspecified right bundle-branch block; I08.1 Rheumatic disorders of both mitral and tricuspid valves; E86.1 Hypovolemia; X58.XXXA Exposure to other specified factors, initial encounter; Z79.82 Long term (current) use of aspirin; Z79.899 Other long term (current) drug therapy; Z88.8 Allergy status to other drugs, medicaments and biological substances; Z87.891 Personal history of nicotine dependence
CPT/HCPCS: 36415; 76770; 80048; 80053; 81003; 83735; 84550; 85025; 85027; 93005; 96360; 96361; 99285